=== PATIENT | female | born 1995 | race Caucasian/White ===

== ENCOUNTER 2016-12-19 13:04 | Emergency (ER) | payer OTHER ==
--- NOTE | 2016-12-19 13:53 | ED ---
General Adult HPI - General Chief complaint: Back Pain/Injury Stated complaint: Back Pain Time Seen by Provider: 12/19/16 13:40 Source: patient, RN notes reviewed Mode of arrival: ambulatory Limitations: no limitations - History of Present Illness Initial comments: This is a 21yo female who presents with an exacerbation of chronic back pain 7 days. Patient states she has a history of scoliosis. Patient states pain is located in the middle of her back and is also in the lower back. Patient denies any recent injury or fall or trigger of the pain. Patient denies any radicular pain, numbness/tingling/weakness. Patient states she is unable to follow up with her primary care doctor as they do not take her insurance but states she [facility], but they will not prescribe her anything stronger than Tylenol. Patient denies any recent fever, chills, shortness breath, chest pain, abdominal pain, nausea/vomiting/diarrhea, dysuria, hematuria, headache, or visual changes, or any other complaints. - Related Data Previous Rx's Medication Instructions Recorded Naproxen [Naprosyn] 250 mg PO BID 7 Days 12/19/16 Allergies Allergy/AdvReac Type Severity Reaction Status Date / Time No Known Allergies Allergy Verified 12/19/16 13:23 Review of Systems ROS Statement: Those systems with pertinent positive or pertinent negative responses have been documented in the HPI. ROS Other: All systems not noted in ROS Statement are negative. Past Medical History Past Medical History: Neurologic Disorder Additional Past Medical History / Comment(s): scoliosis, FREQUENT EAR INFECTIONS. MIGRANES History of Any Multi-Drug Resistant Organisms: None Reported Past Surgical History: Adenoidectomy, Tonsillectomy Additional Past Surgical History / Comment(s): BMT Past Anesthesia/Blood Transfusion Reactions: No Reported Reaction Past Psychological History: No Psychological Hx Reported Smoking Status: Never smoker Past Alcohol Use History: None Reported Past Drug Use History: None Reported - Past Family History Father Family Medical History: No Reported History Mother Family Medical History: Cancer General Exam - General Exam Comments Initial Comments: General: The patient is awake and alert, in no distress, and does not appear acutely ill. Neck: The neck is supple, there is no tenderness or JVD. Cardiovascular: There is a regular rate and rhythm. No murmur, rub or gallop is appreciated. Respiratory: Lungs are clear to auscultation, respirations are non-labored, breath sounds are equal. No wheezes, stridor, rales, or rhonchi. Musculoskeletal: There is tenderness to palpation of thoracic spine and lumbar spine and mild tenderness to palpation of the paraspinal muscles of the thoracic and lumbar spines. No cervical midline tenderness. Full range of motion, strength 5/5 and Sensation intact. Radial pulses 2+ bilaterally. Minimal spinal curvature noted. Neurological: A&O x 3. CN II-XII intact, There are no obvious motor or sensory deficits. Coordination appears grossly intact. Speech is normal. Skin: Skin is warm and dry and no rashes or lesions are noted. Psychiatric: Normal mood and affect. Limitations: no limitations Course Vital Signs 12/19/16 12/19/16 13:23 14:51 Temperature 98.8 F 97.8 F Pulse Rate 95 59 L Respiratory 18 16 Rate Blood Pressure 114/78 114/72 O2 Sat by Pulse 98 98 Oximetry Medical Decision Making - Medical Decision Making This is a 21-year-old female presents with chronic back pain from scoliosis. On physical exam there is tenderness over the thoracic and lumbar spinous processes and also mild tenderness to the thoracic and lumbar paraspinal muscles. Minimal spinal curvature noted. Patient is afebrile in the EC. Patient is requesting pain medication. Patient has been trying Tylenol at home with no improvement. A UA and urine hCG was done and reviewed and was negative for UTI and .Urine was sent for culture. Patient is asymptomatic for UTI. X-rays of thoracic and lumbar spines were done and reviewed showing: X-ray thoracic spine: No acute fracture or dislocation is seen in thoracic spine. X- ray lumbar spine: No acute fracture or dislocation is seen in the lumbar spine. Reports read by Dr. Cage. Discussed naproxen 1-2 tabs every 12 hours and warm heating pad as needed for pain. Discussed close follow-up with physician. Patient will be given a referral for a PCP today. Discussed return parameters. Discussed that patient should follow up with PCP in one to 2 days or return to the EC for any worsening symptoms or for any further concerns. Patient was receptive to this plan and patient will be discharged home. I discussed this case with attending physician Dr. Wesley who agrees with plan as stated above. - Lab Data Lab Results 01/25/17 01/25/17 Range/Units 13:55 13:55 Urine Color Yellow Urine Appearance Cloudy H (Clear) Urine pH 6.0 (5.0-8.0) Ur Specific [place] 1.023 (1.001-1.035) Urine Protein 1+ H (Negative) Urine Glucose (UA) Negative (Negative) Urine Ketones Negative (Negative) Urine Blood Moderate H (Negative) Urine Nitrate Negative (Negative) Urine Bilirubin 1+ H (Negative) Urine Urobilinogen 3.0 (<2.0) mg/dL Ur Leukocyte Esterase Small H (Negative) Urine RBC 4 (0-5) /hpf Urine WBC 8 H (0-5) /hpf Ur Squamous Epith Cells 16 H (0-4) /hpf Urine Bacteria Rare H (None) /hpf Hyaline Casts 4 H (0-2) /lpf Urine Mucus Many H (None) /hpf Urine HCG, Qual Not Detected (Not Detectd) Disposition Clinical Impression: Chronic back pain Disposition: HOME SELF-CARE Condition: Good Instructions: Chronic Back Pain (ED) Additional Instructions: Please use naproxen as prescribed. Please use warm heating pads. May also use Tylenol if needed. Please follow-up with the primary care physician as soon as possible or return to the EC for any worsening symptoms or for any further concerns. Prescriptions: Naproxen [Naprosyn] 250 mg PO BID 7 Days Referrals: None,Stated [Primary Care Provider] - 1-2 days Ella Castaneda MD [STAFF PHYSICIAN] - 1-2 days Romain Puente MD [REFERRING] - 1-2 days Time of Disposition: 14:52
[2016-12-19 14:10] LABS: Appearance,Urine Cloudy (Clear); Bacteria,Urine Rare /hpf; Bilirubin,Urine 1+ (Negative); Glucose,Urine (UA) Negative (Negative); Ketones,Urine Negative (Negative); Leukocyte Esterase,Urine Small (Negative); Mucus,Urine Many /hpf; Nitrite,Urine Negative (Negative); Particle Count 13165; Protein,Urine 1+ (Negative); RBC,Urine 4 /hpf (0-5); Specific Gravity,Urine 1.023 (1.001-1.035); Squamous Epithelial Cell,Urine 16 /hpf (0-4); UA Billing (MACRO vs. MICRO) MICRO; WBC,Urine 8 /hpf (0-5)
--- NOTE | 2016-12-19 14:46 | XR ---
EXAMINATION TYPE: XR lumbar spine 2 or 3V DATE OF EXAM: 12/19/2016 2:43 PM CLINICAL HISTORY: pain TECHNIQUE: Three views of the lumbar spine are submitted. COMPARISON: None. FINDINGS: There are 5 lumbar type vertebral bodies identified. The lumbar spine shows satisfactory alignment w ithout evidence of acute fracture or dislocation. Vertebral body heights are within normal limits. Disc spaces are within normal limits. The overlying soft tissue appears unremarkable. IMPRESSION: No acute fracture or dislocation is seen in the lumbar spine. ICD 10 NO FRACTURE, INITIAL EVALUATION
--- NOTE | 2016-12-19 14:46 | XR ---
EXAMINATION TYPE: XR thoracic spine complete DATE OF EXAM: 12/19/2016 2:43 PM CLINICAL HISTORY: pain TECHNIQUE: Frontal, lateral, and swimmer's view of thoracic spine are obtained. COMPARISON: None. FINDINGS: Thoracic spine show satisfactory alignment without evidence of acute fracture or dislocatio n. Vertebral body heights are preserved. Disc spaces are well preserved. Visualized ribs are unrem arkable. IMPRESSION: No acute fracture or dislocation is seen in the thoracic spine. ICD 10 NO FRACTURE, INIT IAL EVALUATION
[2016-12-19 14:52] VITALS: BP 114/72; PULSE 59; RESP 16; TEMP 97.8
== END 2016-12-19 14:52 | disposition home or self-care (01) ==
LOC: EC 13:04
DX: M54.9 Dorsalgia, unspecified (principal); G89.29 Other chronic pain; M41.9 Scoliosis, unspecified
CPT/HCPCS: 72072; 72100; 81001; 81025; 87086; 99283

== ENCOUNTER 2018-02-27 17:08 | Emergency (ER) | payer OTHER ==
--- NOTE | 2018-02-27 18:02 | ED ---
Abdominal Pain HPI - General Chief Complaint: Abdominal Pain Stated Complaint: Abd Pain-4 wks preg Time Seen by Provider: 02/27/18 17:52 Source: patient, RN notes reviewed, old records reviewed Mode of arrival: ambulatory Limitations: no limitations - History of Present Illness Initial Comments: This patient is a 22-year-old female. She reports that she is proximally 4 weeks , and reports over the past few days she's had some lower abdominal cramping. She reports that she was told she has Rh- blood type. She states that she's had no bleeding. She reports that her previous obese of the Dr. Carmona. She has not followed up with anybody for this initial at this time. She states she's had no nausea or vomiting. She rates her cramping a 2 out of 10. She denies any vaginal bleeding, dysuria, hematuria, changes in bowel habits. Denies any vaginal discharge. - Related Data Home Medications Medication Instructions Recorded Confirmed Usk-Lhpn-Lnoux Acid 1 cap PO HS 02/27/18 02/27/18 [-U Capsule (formulary)] Allergies Allergy/AdvReac Type Severity Reaction Status Date / Time No Known Allergies Allergy Verified 02/27/18 18:20 Review of Systems ROS Statement: Those systems with pertinent positive or pertinent negative responses have been documented in the HPI. ROS Other: All systems not noted in ROS Statement are negative. Past Medical History Past Medical History: Neurologic Disorder Additional Past Medical History / Comment(s): scoliosis, FREQUENT EAR INFECTIONS. MIGRANES History of Any Multi-Drug Resistant Organisms: None Reported Past Surgical History: Adenoidectomy, Tonsillectomy Additional Past Surgical History / Comment(s): BMT Past Anesthesia/Blood Transfusion Reactions: No Reported Reaction Past Psychological History: No Psychological Hx Reported Smoking Status: Never smoker Past Alcohol Use History: None Reported Past Drug Use History: None Reported - Past Family History Father Family Medical History: No Reported History Mother Family Medical History: Cancer General Exam - General Exam Comments Initial Comments: 22-year-old female. Alert and oriented. No distress. Limitations: no limitations General appearance: alert, in no apparent distress Head exam: Present: atraumatic, normocephalic, normal inspection Eye exam: Present: normal appearance, PERRL, EOMI. Absent: scleral icterus, conjunctival injection, periorbital swelling ENT exam: Present: normal exam, mucous membranes moist Neck exam: Present: normal inspection. Absent: tenderness, meningismus, lymphadenopathy Respiratory exam: Present: normal lung sounds bilaterally. Absent: respiratory distress, wheezes, rales, rhonchi, stridor Cardiovascular Exam: Present: regular rate, normal rhythm, normal heart sounds. Absent: systolic murmur, diastolic murmur, rubs, gallop, clicks GI/Abdominal exam: Present: soft, normal bowel sounds. Absent: distended, tenderness, guarding, rebound, rigid External exam: Present: normal external exam Speculum exam: Present: normal speculum exam. Absent: erythema, vaginal discharge, cervical discharge, vaginal bleeding By manual exam: Present: normal by manual exam. Absent: cervical motion tenderness, adnexal tenderness Extremities exam: Present: normal inspection, full ROM, normal capillary refill. Absent: tenderness, pedal edema, joint swelling, calf tenderness Back exam: Present: normal inspection Psychiatric exam: Present: normal affect, normal mood Skin exam: Present: warm, dry, intact, normal color. Absent: rash Course Vital Signs 02/27/18 17:20 Temperature 98.5 F Pulse Rate 114 H Respiratory 16 Rate Blood Pressure 108/80 O2 Sat by Pulse 98 Oximetry Medical Decision Making - Medical Decision Making is a 22-year-old female presents emergency department today chief complaint of lower abdominal cramping. She reports that she is currently 4 weeks . She's her last menstrual cycle was January 27. Patient states that she has not followed up with an FRACTIONATING STILL OPERATOR as of yet. She plans to follow up with Dr. Russo. Patient states that she's had no bleeding. On exam she has no bleeding noted in the vaginal canal. Cervix appears closed. Ultrasound was unable to reveal an intrauterine . Patient's hCG is only 55. Discussed do not be able to visualize anything on the ultrasound at that time. Patient is concerned because due to her dates of which she thought she was she should be presently 4 weeks which is a higher hCG. She states that with a negative Rh type she wants to be treated practically with RhoGAM. Discussed that we could repeat her hCG in 2 days and then if it goes down to treat her with this. Patient states that she doesn't want to have it completed. We will give the patient RhoGAM at this time. Discussed following up with primary care provider in repeat hCG. - Lab Data Result diagrams: 02/27/18 18:19 Lab Results 02/27/18 02/27/18 02/27/18 Range/Units 18:19 18:19 18:19 WBC 4.5 (3.8-10.6) k/uL RBC 4.63 (3.80-5.40) m/uL Hgb 14.7 (11.4-16.0) gm/dL Hct 41.4 (34.0-46.0) % MCV 89.5 (80.0-100.0) fL MCH 31.7 (25.0-35.0) pg MCHC 35.4 (31.0-37.0) g/dL RDW 11.8 (11.5-15.5) % Plt Count 176 (150-450) k/uL Neutrophils % 62 % Lymphocytes % 28 % Monocytes % 6 % Eosinophils % 2 % Basophils % 1 % Neutrophils # 2.8 (1.3-7.7) k/uL Lymphocytes # 1.2 (1.0-4.8) k/uL Monocytes # 0.3 (0-1.0) k/uL Eosinophils # 0.1 (0-0.7) k/uL Basophils # 0.0 (0-0.2) k/uL HCG, Quant 55.7 mIU/mL Blood Type O Negative Blood Type Recheck No - Radiology Data Radiology results: report reviewed No jugular gestation is identified. Correlate patient's hCG. Early may not be visualized. Ectopic is not excluded. Left ovarian cyst noted. Disposition Clinical Impression: Early stage of Disposition: HOME SELF-CARE Condition: Good Instructions: Abdominal Pain in (ED) Additional Instructions: Patient has a follow-up with FRACTIONATING STILL OPERATOR and primary care provider. Repeat blood work in 2 days. Return to the emergency department if any alarming signs or symptoms occur. Referrals: Keeley Tapia DO [Primary Care Provider] - 1-2 days Time of Disposition: 19:54
[2018-02-27 18:28] LABS: Basophils % (A) 1 %; Eosinophils # (A) 0.1 k/uL (0-0.7); Eosinophils % (A) 2 %; HCT 41.4 % (34.0-46.0); HGB 14.7 gm/dL (11.4-16.0); Lymphocytes # (A) 1.2 k/uL (1.0-4.8); Lymphocytes % (A) 28 %; MCH 31.7 pg (25.0-35.0); MCHC 35.4 g/dL (31.0-37.0); MCV 89.5 fL (80.0-100.0); Mean Platelet Volume 8.4; Monocytes # (A) 0.3 k/uL (0-1.0); Monocytes % (A) 6 %; Neutrophils # (A) 2.8 k/uL (1.3-7.7); Neutrophils % (A) 62 %; Platelet Count 176 k/uL (150-450); RBC 4.63 m/uL (3.80-5.40); RDW 11.8 % (11.5-15.5); WBC 4.5 k/uL (3.8-10.6)
--- NOTE | 2018-02-27 19:30 | US ---
EXAMINATION TYPE: Transabdominal DATE OF EXAM: 02/25/18 COMPARISON: NONE CLINICAL HISTORY: pain. Cramping EXAM PERFORMED: Transabdominal (TA) EXAM MEASUREMENTS: GESTATIONAL AGE / DATING Physician Established: Not yet established Dates by LMP: (4 weeks/3 days) EDC: 11/03/2018 Dates by First Scan: No previous this is first scan Dates by Current Scan for: No IUP seen at this time MATERNAL ANATOMY Uterus: 8.9 x 6.1 x 5.8cm Right Ovary: 3.2 x 1.7 x 2.6cm Left Ovary: 3.5 x 1.9 x 3.8 cm Post CDS / Adnexa: wnl Presence of free fluid: no Presence of corpus luteal cyst: yes GESTATION / SURVEY IUP: No IUP seen at this time Beta HcG (if available): Not available at this time No IUP seen at this time question to early. IMPRESSION: 1. Intrauterine gestation is not identified. Correlate with the patient's beta hCG. Early m ay not be visualized. Ectopic is not excluded. 2. Left ovarian cyst.
[2018-02-27] MEDS ORDERED: Rhogam IMMUNE GLOBULIN 1,500 UNIT/1 ML IM ONE (19:49)
[2018-02-27 20:21] LABS: Appearance,Urine Clear (Clear); Bacteria,Urine Rare /hpf; Bilirubin,Urine Negative (Negative); Blood,Urine Small (Negative); Color,Urine Yellow; Glucose,Urine (UA) Negative (Negative); Ketones,Urine Negative (Negative); Leukocyte Esterase,Urine Negative (Negative); Mucus,Urine Many /hpf; Nitrite,Urine Negative (Negative); PH, Urine 5.5 (5.0-8.0); Protein,Urine Trace (Negative); RBC,Urine 3 /hpf (0-5); Specific Gravity,Urine 1.027 (1.001-1.035); Squamous Epithelial Cell,Urine 4 /hpf (0-4); WBC,Urine 3 /hpf (0-5)
[2018-02-27 21:33] VITALS: BP 110/68; PULSE 84; RESP 18; TEMP 98
== END 2018-02-27 21:33 | disposition home or self-care (01) ==
LOC: EC 17:08
DX: O99.89 Other specified diseases and conditions complicating pregnancy, childbirth and the puerperium (principal); R10.30 Lower abdominal pain, unspecified; Z3A.01 Less than 8 weeks gestation of pregnancy
CPT/HCPCS: 36415; 86900; 86901; 85025; 86850; 81001; 84702; 87808; 87491; 87591; 87070; 87205; 76801; 99284; 96372; J2791

== ENCOUNTER 2018-03-03 15:09 | Emergency (ER) | payer OTHER ==
[2018-03-03 15:16] VITALS: RESP 18
[2018-03-03 15:42] LABS: Basophils % (A) 1 %; Eosinophils % (A) 1 %; HCT 41.9 % (34.0-46.0); HGB 14.2 gm/dL (11.4-16.0); Lymphocytes # (A) 0.9 k/uL (1.0-4.8); Lymphocytes % (A) 20 %; MCH 30.2 pg (25.0-35.0); MCHC 33.9 g/dL (31.0-37.0); MCV 89.2 fL (80.0-100.0); Mean Platelet Volume 9.5; Monocytes # (A) 0.4 k/uL (0-1.0); Monocytes % (A) 8 %; Neutrophils % (A) 69 %; Platelet Count 139 k/uL (150-450); RBC 4.69 m/uL (3.80-5.40); RDW 11.9 % (11.5-15.5); WBC 4.3 k/uL (3.8-10.6)
[2018-03-03 15:48] LABS: Appearance,Urine Turbid (Clear); Bacteria,Urine Few /hpf; Bilirubin,Urine 1+ (Negative); Blood,Urine Moderate (Negative); Color,Urine Dark Brown; Glucose,Urine (UA) Negative (Negative); Ketones,Urine Trace (Negative); Leukocyte Esterase,Urine Trace (Negative); Mucus,Urine Many /hpf; Nitrite,Urine Negative (Negative); Protein,Urine 2+ (Negative); RBC,Urine >182 /hpf (0-5); Specific Gravity,Urine 1.032 (1.001-1.035); Sperm,Urine Moderate /hpf; Squamous Epithelial Cell,Urine 36 /hpf (0-4); WBC,Urine 10 /hpf (0-5)
[2018-03-03 15:51] LABS: ALT 25 U/L (9-52); AST 18 U/L (14-36); Albumin 4.5 g/dL (3.5-5.0); Alkaline Phosphatase 49 U/L (38-126); Anion Gap 15 mmol/L; Blood Urea Nitrogen 11 mg/dL (7-17); Calcium 9.5 mg/dL (8.4-10.2); Carbon Dioxide 26 mmol/L (22-30); Chloride 103 mmol/L (98-107); Glucose 96 mg/dL (74-99); Potassium 4.1 mmol/L (3.5-5.1); Sodium 144 mmol/L (137-145); Total Bilirubin 0.7 mg/dL (0.2-1.3); Total Protein 7.5 g/dL (6.3-8.2)
--- NOTE | 2018-03-03 16:24 | ED ---
Female Urogenital HPI - General Chief complaint: Vaginal Bleeding Stated complaint: Bleeding, 4 weeks Time Seen by Provider: 03/03/18 16:00 Source: patient, RN notes reviewed, old records reviewed Mode of arrival: ambulatory Limitations: no limitations - History of Present Illness Initial comments: 22-year-old female presents emergency Department a chief complaint of vaginal bleeding. She was seen in ED a few days earlier by myself, for lower cramping. Her hcg at that time was 55. She was also given rhogam at that time, because she thought she was going to be having a miscarriage. She was planning to have her blood work redrawn today, but started to have bleeding. She reports right sided lower cramping. Denies fever or chills, her OB is Dr. Carmona. Last Menstrual Period: 01/27/18 - Related Data Home Medications Medication Instructions Recorded Confirmed Nsq-Hlwu-Hhdev Acid 1 cap PO HS 02/27/18 03/03/18 [-U Capsule (formulary)] Previous Rx's Medication Instructions Recorded Ibuprofen [Motrin] 600 mg PO Q8HR PRN #20 tab 03/03/18 traMADol HCL [Ultram] 50 mg PO Q6HR PRN #10 tab 03/03/18 Allergies Allergy/AdvReac Type Severity Reaction Status Date / Time No Known Allergies Allergy Verified 03/03/18 16:14 Review of Systems ROS Statement: Those systems with pertinent positive or pertinent negative responses have been documented in the HPI. ROS Other: All systems not noted in ROS Statement are negative. Past Medical History Past Medical History: Neurologic Disorder Additional Past Medical History / Comment(s): scoliosis, FREQUENT EAR INFECTIONS. MIGRANES History of Any Multi-Drug Resistant Organisms: None Reported Past Surgical History: Adenoidectomy, Tonsillectomy Additional Past Surgical History / Comment(s): BMT Past Anesthesia/Blood Transfusion Reactions: No Reported Reaction Past Psychological History: No Psychological Hx Reported Smoking Status: Never smoker Past Alcohol Use History: None Reported Past Drug Use History: None Reported - Past Family History Father Family Medical History: No Reported History Mother Family Medical History: Cancer General Exam - General Exam Comments Initial Comments: 22-year-old female. No distress. Limitations: no limitations General appearance: alert Head exam: Present: atraumatic, normocephalic, normal inspection Eye exam: Present: normal appearance, PERRL, EOMI. Absent: scleral icterus, conjunctival injection, periorbital swelling ENT exam: Present: normal exam, mucous membranes moist Neck exam: Present: normal inspection. Absent: tenderness, meningismus, lymphadenopathy Respiratory exam: Present: normal lung sounds bilaterally. Absent: respiratory distress, wheezes, rales, rhonchi, stridor Cardiovascular Exam: Present: regular rate, normal rhythm, normal heart sounds. Absent: systolic murmur, diastolic murmur, rubs, gallop, clicks GI/Abdominal exam: Present: soft, normal bowel sounds. Absent: distended, tenderness, guarding, rebound, rigid Extremities exam: Present: normal inspection, full ROM, normal capillary refill. Absent: tenderness, pedal edema, joint swelling, calf tenderness Back exam: Present: normal inspection Neurological exam: Present: alert, oriented X3, CN II-XII intact Psychiatric exam: Present: normal affect, normal mood Skin exam: Present: warm, dry, intact, normal color. Absent: rash Course Vital Signs 03/03/18 03/03/18 15:12 16:38 Temperature 98.3 F 98.4 F Pulse Rate 111 H 88 Respiratory 18 18 Rate Blood Pressure 115/67 114/71 O2 Sat by Pulse 98 99 Oximetry Medical Decision Making - Medical Decision Making This patient is a 22 year old femael with vaginal bleeding, she is approximately 5 weeks . Patient had US 4 days ago. US showed no viable IUP at that time. She started to have vaginal bleeding today. Her HCG at this time is 39. She was already treated with rhogam. Discussed she needs to repeat hcg in 2 days to ensure it is decreasing. - Lab Data Result diagrams: 03/03/18 15:25 03/03/18 15:25 Lab Results 03/03/18 03/03/18 03/03/18 Range/Units 15:25 15:25 15:25 WBC 4.3 (3.8-10.6) k/uL RBC 4.69 (3.80-5.40) m/uL Hgb 14.2 (11.4-16.0) gm/dL Hct 41.9 (34.0-46.0) % MCV 89.2 (80.0-100.0) fL MCH 30.2 (25.0-35.0) pg MCHC 33.9 (31.0-37.0) g/dL RDW 11.9 (11.5-15.5) % Plt Count 139 L (150-450) k/uL Neutrophils % 69 % Lymphocytes % 20 % Monocytes % 8 % Eosinophils % 1 % Basophils % 1 % Neutrophils # 3.0 (1.3-7.7) k/uL Lymphocytes # 0.9 L (1.0-4.8) k/uL Monocytes # 0.4 (0-1.0) k/uL Eosinophils # 0.0 (0-0.7) k/uL Basophils # 0.0 (0-0.2) k/uL Sodium 144 (137-145) mmol/L Potassium 4.1 (3.5-5.1) mmol/L Chloride 103 (98-107) mmol/L Carbon Dioxide 26 (22-30) mmol/L Anion Gap 15 mmol/L BUN 11 (7-17) mg/dL Creatinine 0.71 (0.52-1.04) mg/dL Est GFR (CKD-EPI)AfAm >90 (>60 ml/min/1.73 sqM) Est GFR (CKD-EPI)NonAf >90 (>60 ml/min/1.73 sqM) Glucose 96 (74-99) mg/dL Calcium 9.5 (8.4-10.2) mg/dL Total Bilirubin 0.7 (0.2-1.3) mg/dL AST 18 (14-36) U/L ALT 25 (9-52) U/L Alkaline Phosphatase 49 (38-126) U/L Total Protein 7.5 (6.3-8.2) g/dL Albumin 4.5 (3.5-5.0) g/dL HCG, Quant 39.0 mIU/mL Urine Color Dark Brown Urine Appearance Turbid H (Clear) Urine pH 6.0 (5.0-8.0) Ur Specific [place] 1.032 (1.001-1.035) Urine Protein 2+ H (Negative) Urine Glucose (UA) Negative (Negative) Urine Ketones Trace H (Negative) Urine Blood Moderate H (Negative) Urine Nitrite Negative (Negative) Urine Bilirubin 1+ H (Negative) Urine Urobilinogen 6.0 (<2.0) mg/dL Ur Leukocyte Esterase Trace H (Negative) Urine RBC >182 H (0-5) /hpf Urine WBC 10 H (0-5) /hpf Ur Squamous Epith Cells 36 H (0-4) /hpf Urine Bacteria Few H (None) /hpf Urine Mucus Many H (None) /hpf Urine Sperm Moderate H (None) /hpf Blood Type Blood Type Recheck 03/03/18 Range/Units 15:25 WBC (3.8-10.6) k/uL RBC (3.80-5.40) m/uL Hgb (11.4-16.0) gm/dL Hct (34.0-46.0) % MCV (80.0-100.0) fL MCH (25.0-35.0) pg MCHC (31.0-37.0) g/dL RDW (11.5-15.5) % Plt Count (150-450) k/uL Neutrophils % % Lymphocytes % % Monocytes % % Eosinophils % % Basophils % % Neutrophils # (1.3-7.7) k/uL Lymphocytes # (1.0-4.8) k/uL Monocytes # (0-1.0) k/uL Eosinophils # (0-0.7) k/uL Basophils # (0-0.2) k/uL Sodium (137-145) mmol/L Potassium (3.5-5.1) mmol/L Chloride (98-107) mmol/L Carbon Dioxide (22-30) mmol/L Anion Gap mmol/L BUN (7-17) mg/dL Creatinine (0.52-1.04) mg/dL Est GFR (CKD-EPI)AfAm (>60 ml/min/1.73 sqM) Est GFR (CKD-EPI)NonAf (>60 ml/min/1.73 sqM) Glucose (74-99) mg/dL Calcium (8.4-10.2) mg/dL Total Bilirubin (0.2-1.3) mg/dL AST (14-36) U/L ALT (9-52) U/L Alkaline Phosphatase (38-126) U/L Total Protein (6.3-8.2) g/dL Albumin (3.5-5.0) g/dL HCG, Quant mIU/mL Urine Color Urine Appearance (Clear) Urine pH (5.0-8.0) Ur Specific [place] (1.001-1.035) Urine Protein (Negative) Urine Glucose (UA) (Negative) Urine Ketones (Negative) Urine Blood (Negative) Urine Nitrite (Negative) Urine Bilirubin (Negative) Urine Urobilinogen (<2.0) mg/dL Ur Leukocyte Esterase (Negative) Urine RBC (0-5) /hpf Urine WBC (0-5) /hpf Ur Squamous Epith Cells (0-4) /hpf Urine Bacteria (None) /hpf Urine Mucus (None) /hpf Urine Sperm (None) /hpf Blood Type O Negative Blood Type Recheck No Disposition Clinical Impression: Miscarriage Disposition: HOME SELF-CARE Condition: Stable Instructions: Miscarriage (ED) Additional Instructions: Patient advised to follow-up with primary care provider and PASSENGER RATE CLERK. Return to emergency department if any alarming signs or symptoms occur. Prescriptions: Ibuprofen [Motrin] 600 mg PO Q8HR PRN #20 tab PRN Reason: Pain traMADol HCL [Ultram] 50 mg PO Q6HR PRN #10 tab PRN Reason: Pain Referrals: Keeley Tapia DO [Primary Care Provider] - 1-2 days Time of Disposition: 16:34
[2018-03-03 16:40] VITALS: BP 114/71; PULSE 88; TEMP 98.4
== END 2018-03-03 16:58 | disposition home or self-care (01) ==
LOC: EC 15:09
DX: O03.9 Complete or unspecified spontaneous abortion without complication (principal)
CPT/HCPCS: 36415; 80053; 81001; 84702; 85025; 86900; 86901; 99284

== ENCOUNTER → 2018-05-20 | Outpatient (CLI) | payer OTHER ==
--- NOTE | 2018-05-20 15:49 | US ---
EXAMINATION TYPE: Transabdominal DATE OF EXAM: 02/25/18 COMPARISON: NONE CLINICAL HISTORY: Z36 CONFIRM DATES. no cramping or bleeding, confirm dates EXAM PERFORMED: OBTA EXAM MEASUREMENTS: GESTATIONAL AGE / DATING Physician Established: (10 weeks/6 days) EDC: 12/08/2018 Dates by LMP: LMP unknown Dates by First Scan: No previous this is first scan Dates by Current Scan for: (10 weeks/6 days) EDC: 12/10/2018 MATERNAL ANATOMY Uterus: 10.6 x 7.7 x 9.1cm Right Ovary: 2.5 x 1.5 x 1.6cm Left Ovary: 1.9 x 1.7 x 1.9cm Post CDS / Adnexa: wnl Presence of free fluid: no Presence of corpus luteal cyst: no Presence of subchorionic bleed: no GESTATION / SURVEY CRL: 3.8cm (10 weeks/6 days) MSD: wnl Yolk Sac (normal less than 6mm): 0.3cm Heart Rate: 174 bpm Rhythm: Normal IUP: Viable IUP Date of LMP: unknown Beta HcG (if available): not available IMPRESSION: Single viable intrauterine .
[2018-05-20 17:04] LABS: HCT 42.1 % (34.0-46.0); HGB 14.8 gm/dL (11.4-16.0); MCH 31.3 pg (25.0-35.0); MCV 89.3 fL (80.0-100.0); Mean Platelet Volume 8.5; Platelet Count 174 k/uL (150-450); RBC 4.72 m/uL (3.80-5.40); RDW 12.9 % (11.5-15.5); WBC 6.9 k/uL (3.8-10.6)
[2018-05-20 17:26] LABS: Glucose 86 mg/dL (74-99)
[2018-05-21 05:58] LABS: Toxoplasma Antibody (IgG) <3.0 IU/mL (<7.2); Toxoplasma Antibody (IgM) <3.0 AU/mL (<8.0)
== END | disposition home or self-care (01) ==
LOC: RADUSWWP 14:20
PROVIDERS: ATTEND Obstetrics & Gynecology
DX: Z36.89 Encounter for other specified antenatal screening (principal); Z34.81 Encounter for supervision of other normal pregnancy, first trimester; Z3A.10 10 weeks gestation of pregnancy
CPT/HCPCS: 36415; 76801; 82565; 82947; 85027; 86762; 86777; 86778; 86780; 86850; 86870; 86880; 86900; 86901; 87340

== ENCOUNTER 2018-07-07 01:12 | Emergency (ER) | payer OTHER ==
[2018-07-07 01:20] VITALS: RESP 18
[2018-07-07] MEDS ORDERED: SODIUM CHLORIDE 0.9% 1,000 ML IV STA (01:38)
[2018-07-07] MEDS ORDERED: ACETAMINOPHEN TAB 325 MG TAB PO STA (01:38)
--- NOTE | 2018-07-07 01:48 | ED ---
Abdominal Pain HPI - General Chief Complaint: Abdominal Pain Stated Complaint: Cramping-18wks Time Seen by Provider: 07/07/18 01:26 Source: patient Mode of arrival: ambulatory Limitations: no limitations - History of Present Illness Initial Comments: 23-year-old female patient who is A1, currently 18 weeks presents to the emergency department today for evaluation of left sided pelvic pain and generalized abdominal cramping. Patient states that the pain feels like contractions. States they are irregular. Patient states that this started a couple of hours prior to arrival. Patient states that she is having some low back pain as well but this is not unusual for her as she does have a history of scoliosis. Patient denies any dysuria, hematuria, or urinary urgency. She is not having any vaginal bleeding, but states she has had an increase in clear vaginal discharge. Patient states she's been having normal bowel movements. Patient states that that this has been expands a lot of nausea and vomiting. She sees Dr. Carmona. Last visit with him was approximately 5 weeks ago. Patient denies any recent rash, fever, chills, shortness breath, chest pain, numbness, tingling, dizziness, weakness, headache , visual changes, or any other complaints. - Related Data Home Medications Medication Instructions Recorded Confirmed Qds-Imrj-Klexv Acid 1 cap PO HS 02/27/18 03/03/18 [-U Capsule (formulary)] Previous Rx's Medication Instructions Recorded Ibuprofen [Motrin] 600 mg PO Q8HR PRN #20 tab 03/03/18 traMADol HCL [Ultram] 50 mg PO Q6HR PRN #10 tab 03/03/18 Allergies Allergy/AdvReac Type Severity Reaction Status Date / Time No Known Allergies Allergy Verified 07/07/18 01:20 Review of Systems ROS Statement: Those systems with pertinent positive or pertinent negative responses have been documented in the HPI. ROS Other: All systems not noted in ROS Statement are negative. Past Medical History Past Medical History: Neurologic Disorder Additional Past Medical History / Comment(s): scoliosis, FREQUENT EAR INFECTIONS. MIGRANES History of Any Multi-Drug Resistant Organisms: None Reported Past Surgical History: Adenoidectomy, Tonsillectomy Additional Past Surgical History / Comment(s): BMT Past Anesthesia/Blood Transfusion Reactions: No Reported Reaction Past Psychological History: No Psychological Hx Reported Smoking Status: Never smoker Past Alcohol Use History: None Reported Past Drug Use History: None Reported - Past Family History Father Family Medical History: No Reported History Mother Family Medical History: Cancer General Exam Limitations: no limitations General appearance: alert, in no apparent distress, other Eye exam: Present: normal appearance, PERRL, EOMI. Absent: scleral icterus, conjunctival injection, periorbital swelling ENT exam: Present: normal exam, normal oropharynx, mucous membranes moist Respiratory exam: Present: normal lung sounds bilaterally. Absent: respiratory distress, wheezes, rales, rhonchi, stridor Cardiovascular Exam: Present: regular rate, normal rhythm, normal heart sounds. Absent: systolic murmur, diastolic murmur, rubs, gallop, clicks GI/Abdominal exam: Present: soft, tenderness (Left pelvic tenderness), normal bowel sounds. Absent: distended, guarding, rebound, rigid Neurological exam: Present: alert, oriented X3, CN II-XII intact Psychiatric exam: Present: normal affect, normal mood Skin exam: Present: warm, dry, intact, normal color. Absent: rash Course Vital Signs 07/07/18 01:17 Temperature 98.2 F Pulse Rate 111 H Respiratory 18 Rate Blood Pressure 116/66 O2 Sat by Pulse 100 Oximetry Medical Decision Making - Medical Decision Making 23-year-old female patient who is 18 weeks presents to the emergency department today for evaluation of left pelvic pain increase clear vaginal discharge. Physical examination did reveal some mild tenderness over the left pelvic region. Labs reviewed and were unremarkable. Urinalysis was negative for any evidence of infection. ultrasound was obtained and showed a viable intrauterine measuring 17 weeks 3 days. Amniotic fluid appeared normal. There is no complicating process seen. I did offer to perform pelvic examination and the patient declined stating that she would rather have this done by her TARE WORKER. Patient is instructed to follow-up with Dr. Carmona as soon as possible. Return parameters were discussed in detail. She verbalizes understanding and agrees with this plan. - Lab Data Result diagrams: 07/07/18 02:36 07/07/18 02:36 Lab Results 07/07/18 07/07/18 07/07/18 Range/Units 02:36 02:36 02:36 WBC 7.2 (3.8-10.6) k/uL RBC 3.92 (3.80-5.40) m/uL Hgb 12.4 (11.4-16.0) gm/dL Hct 36.0 (34.0-46.0) % MCV 91.6 (80.0-100.0) fL MCH 31.6 (25.0-35.0) pg MCHC 34.5 (31.0-37.0) g/dL RDW 13.6 (11.5-15.5) % Plt Count 140 L (150-450) k/uL Neutrophils % 78 % Lymphocytes % 15 % Monocytes % 5 % Eosinophils % 1 % Basophils % 0 % Neutrophils # 5.6 (1.3-7.7) k/uL Lymphocytes # 1.1 (1.0-4.8) k/uL Monocytes # 0.3 (0-1.0) k/uL Eosinophils # 0.0 (0-0.7) k/uL Basophils # 0.0 (0-0.2) k/uL Sodium 137 (137-145) mmol/L Potassium 3.8 (3.5-5.1) mmol/L Chloride 107 (98-107) mmol/L Carbon Dioxide 24 (22-30) mmol/L Anion Gap 6 mmol/L BUN 8 (7-17) mg/dL Creatinine 0.50 L (0.52-1.04) mg/dL Est GFR (CKD-EPI)AfAm >90 (>60 ml/min/1.73 sqM) Est GFR (CKD-EPI)NonAf >90 (>60 ml/min/1.73 sqM) Glucose 90 (74-99) mg/dL Calcium 9.0 (8.4-10.2) mg/dL Total Bilirubin 0.6 (0.2-1.3) mg/dL AST 14 (14-36) U/L ALT 21 (9-52) U/L Alkaline Phosphatase 38 (38-126) U/L Total Protein 6.4 (6.3-8.2) g/dL Albumin 3.7 (3.5-5.0) g/dL Amylase 64 (30-110) U/L Lipase 39 (23-300) U/L Urine Color Yellow Urine Appearance Clear (Clear) Urine pH 6.5 (5.0-8.0) Ur Specific [place] 1.007 (1.001-1.035) Urine Protein Negative (Negative) Urine Glucose (UA) Negative (Negative) Urine Ketones Negative (Negative) Urine Blood Trace H (Negative) Urine Nitrite Negative (Negative) Urine Bilirubin Negative (Negative) Urine Urobilinogen <2.0 (<2.0) mg/dL Ur Leukocyte Esterase Negative (Negative) Urine RBC 1 (0-5) /hpf Urine WBC 2 (0-5) /hpf Ur Squamous Epith Cells 5 H (0-4) /hpf - Radiology Data Radiology results: report reviewed, image reviewed ultrasound was obtained. Report was reviewed in its entirety. Impression by Dr. Paulino shows satisfactory development compared to . No Acute process seen. The single IUP measuring 17 weeks 4 days with a heart rate of 153 and estimated delivery date of 12/11/2018. JACQUELYN is within normal range. Disposition Clinical Impression: Abdominal pain during Disposition: HOME SELF-CARE Condition: Good Instructions: Abdominal Pain in (ED) Additional Instructions: Increase fluids. Follow-up with your TARE WORKER as soon as possible. Return here immediately for any new, worsening, or concerning symptoms. Is patient prescribed a controlled substance at d/c from ED?: No Referrals: Keeley Tapia DO [Primary Care Provider] - 1-2 days Lauro Carmona MD [STAFF PHYSICIAN] - 1-2 days Time of Disposition: 03:18
--- NOTE | 2018-07-07 02:23 | US ---
EXAMINATION TYPE: US OB >= 14 wk fetus DATE OF EXAM: 07/07/2018 COMPARISON: US 2018 CLINICAL HISTORY: PainPelvic cramping x couple days TECHNIQUE: Transabdominal (TA) GESTATIONAL AGE / DATING Physician Established: (18 weeks/0 days) EDC: 12/08/2018 Dates by LMP: Unknown Dates by First Scan: (17 weeks/5 days) EDC: 12/10/2018 Dates by Current Scan: (17 weeks/4 days) EDC: 12/11/2018 SURVEY IUP: Single PLACENTA: Anterior PREVIA: No Previa JACQUELYN: 10.9 cm Normal CERVICAL LENGTH (transabdominal: norm > 3.0cm): 3.3 cm BIOMETRY PRESENTATION: Breech LIE: Longitudinal BPD: 3.8 cm 17 weeks / 3 days HC: 13.9 cm 17 weeks / 2 days AC: 12.6 cm no complicating process seen. 18 weeks / 1 days FL: 2.5 cm 17 weeks / 4 days ESTIMATED WEIGHT IN GRAMS: 212 grams ESTIMATED WEIGHT IN LBS/OZ: 0 lbs. 7 oz. WEIGHT PERCENTAGE BASED ON ESTABLISHED DATES: 35% HC/AC: 1.10 Normal FL/AC: 19.98 HEART RATE: 153 bpm RHYTHM: Normal Viable single IUP measuring 17 weeks 4 days with a heart rate of 153bpm and an estimated delivery dena e of 12/11/2018. IMPRESSION: There is satisfactory development compared to 05/20/2018. No complicating process seen.
[2018-07-07 02:47] LABS: Basophils % (A) 0 %; Eosinophils % (A) 1 %; HGB 12.4 gm/dL (11.4-16.0); Lymphocytes # (A) 1.1 k/uL (1.0-4.8); Lymphocytes % (A) 15 %; MCH 31.6 pg (25.0-35.0); MCHC 34.5 g/dL (31.0-37.0); MCV 91.6 fL (80.0-100.0); Mean Platelet Volume 8.8; Monocytes # (A) 0.3 k/uL (0-1.0); Monocytes % (A) 5 %; Neutrophils # (A) 5.6 k/uL (1.3-7.7); Neutrophils % (A) 78 %; Platelet Count 140 k/uL (150-450); RBC 3.92 m/uL (3.80-5.40); RDW 13.6 % (11.5-15.5); WBC 7.2 k/uL (3.8-10.6)
[2018-07-07 02:49] LABS: Appearance,Urine Clear (Clear); Bilirubin,Urine Negative (Negative); Blood,Urine Trace (Negative); Color,Urine Yellow; Glucose,Urine (UA) Negative (Negative); Ketones,Urine Negative (Negative); Leukocyte Esterase,Urine Negative (Negative); Nitrite,Urine Negative (Negative); PH, Urine 6.5 (5.0-8.0); Protein,Urine Negative (Negative); RBC,Urine 1 /hpf (0-5); Specific Gravity,Urine 1.007 (1.001-1.035); Squamous Epithelial Cell,Urine 5 /hpf (0-4); Urobilinogen,Urine <2.0 mg/dL (<2.0); WBC,Urine 2 /hpf (0-5)
[2018-07-07 02:57] LABS: ALT 21 U/L (9-52); AST 14 U/L (14-36); Albumin 3.7 g/dL (3.5-5.0); Alkaline Phosphatase 38 U/L (38-126); Amylase 64 U/L (30-110); Anion Gap 6 mmol/L; Blood Urea Nitrogen 8 mg/dL (7-17); Carbon Dioxide 24 mmol/L (22-30); Chloride 107 mmol/L (98-107); Glucose 90 mg/dL (74-99); Lipase 39 U/L (23-300); Potassium 3.8 mmol/L (3.5-5.1); Sodium 137 mmol/L (137-145); Total Bilirubin 0.6 mg/dL (0.2-1.3); Total Protein 6.4 g/dL (6.3-8.2)
[2018-07-07 03:57] VITALS: BP 110/63; PULSE 88; TEMP 97.6
== END 2018-07-07 03:58 | disposition home or self-care (01) ==
LOC: EC 01:12
DX: O99.89 Other specified diseases and conditions complicating pregnancy, childbirth and the puerperium (principal); R10.84 Generalized abdominal pain; R10.2 Pelvic and perineal pain; N89.8 Other specified noninflammatory disorders of vagina; M54.5 Low back pain; M41.9 Scoliosis, unspecified; O21.9 Vomiting of pregnancy, unspecified; Z53.29 Procedure and treatment not carried out because of patient's decision for other reasons; Z3A.17 17 weeks gestation of pregnancy
CPT/HCPCS: 36415; 76805; 80053; 81001; 82150; 83690; 85025; 87086; 96360; 99284

== ENCOUNTER 2018-09-04 10:08 | Outpatient (CLI) | payer OTHER ==
[2018-09-04 10:51] VITALS: BP 114/67; PULSE 97; RESP 18; TEMP 98.2
--- NOTE | 2018-09-25 12:58 | P.MSEPDOC ---
Presenting Problems - Arrival Data Date of Arrival on Unit: 09/04/18 Time of Arrival on Unit: 10:08 Mode of Transport: Ambulatory Vital Signs - Temperature Temperature: 98.2 F Temperature Source: Oral - Pulse Right Pulse Oximetery Pulse Rate: 97 Pulse Assessment Method: Pulse Oximetry - Respirations Respiratory Rate: 18 Oxygen Delivery Method: Room Air O2 Sat by Pulse Oximetry: 100 - Blood Pressure Right Arm Blood Pressure: 114/67 Blood Pressure Mean: 82 Blood Pressure Source: Automatic Cuff Medical Screen Scoring (Post) - Cervical Exam Dilation: 0 cm = 0 Membranes: Intact - Uterine Contractions Frequency: > 5 minutes apart = 1 Duration: N/A Intensity: N/A - Maternal Vital Signs Maternal Temperature: N/A Maternal Blood Pressure: N/A Signs of Preeclampsia: N/A Maternal Respirations: N/A - Pain Assessment Pain Location and Character: Abdomen Pain Scale Used: Numeric (1 - 10) Pain Intensity: 4 Pain Management Goal: 2 Pain Description: Tightness Pain Radiation Location: NONE Pain Frequency: Occasional Pain Duration: 4 Pain Duration Units: Hours Pain Behavior: Vocalization Effects of Pain: NONE Pain Aggravating Factors: Position, Walking Pharmacological Interventions: Discuss Pain Med Options Non-Pharmacological Interventions: Position/Reposition, Reduce Environmental Stimuli - Maternal Trauma Maternal Trauma: N/A - Assessment Heart Rate: 140 Heart Rate - NICHD Category: Category I (Normal) = 0 Position: N/A Station: N/A - Total Score Total Score (Post): 1 - Post Treatment Level of Risk Post Treatment Level of Risk: Low (0-5) Physician Notification (Post) - Physician Notified Physician Notified Date: 09/04/18 Physician Notified Time: 10:30 Physician/Practitioner Notified:: DR LEIGH Spoke With: DR LEIGH - TELEPHONE, AT OFFICE New Order Received: Yes (cervical exam, if closed, pt may be discharged home) - Notification Comment Comment: pt here for contractions and lower left abdominal pain with contractions, FHR reassuring, no contractions per TOCO or palpation, cervix closed, thick, high, firm. pt discharged home with instructions. Disposition - Disposition OB Disposition: Discharge to home Discharge Date: 09/04/18 Discharge Time: 10:42 I agree with the RN Medical Screening Exam: Yes Risk & Benefit of care provided described in d/c instruction: Yes Diagnosis: FALSE LABOR BEFORE 37 COMPLETED WEEKS OF GEST, THIRD TRI
== END 2018-09-04 10:42 | disposition home or self-care (01) ==
LOC: FBPOP 10:08
PROVIDERS: ATTEND Obstetrics & Gynecology
DX: O47.03 False labor before 37 completed weeks of gestation, third trimester (principal); Z3A.00 Weeks of gestation of pregnancy not specified
CPT/HCPCS: 99213

== ENCOUNTER 2018-11-08 14:41 | Outpatient (CLI) | payer OTHER ==
[2018-11-08 15:04] LABS: Appearance,Urine Clear (Clear); Bilirubin,Urine Negative (Negative); Blood,Urine Negative (Negative); Color,Urine Yellow; Glucose,Urine (UA) Negative (Negative); Ketones,Urine Negative (Negative); Leukocyte Esterase,Urine Negative (Negative); Nitrite,Urine Negative (Negative); PH, Urine 6.5 (5.0-8.0); Protein,Urine Negative (Negative); Specific Gravity,Urine 1.012 (1.001-1.035)
[2018-11-08 15:41] VITALS: BP 116/71; PULSE 97; RESP 18; TEMP 97.6
--- NOTE | 2018-11-09 09:15 | P.MSEPDOC ---
Presenting Problems - Arrival Data Date of Arrival on Unit: 11/08/18 Time of Arrival on Unit: 14:41 Mode of Transport: Ambulatory - Complaint OB-Reason for Admission/Chief Complaint: Possible Onset of Labor Comment: cramping since last night. pt states constant. Medical History - Information : 5 Para: 3 Term: 3 : 0 Abortions: Spontaneous or Elective: 1 Number of Living Children: 3 - Gestational Age Gestational Age by CHANDAN (wks/days): 35 Weeks and 5 Days Review of Systems - Review of Systems Constitutional: No problems Breast: No problems ENT: No problems Cardiovascular: No problems Respiratory: No problems Gastrointestinal: No problems Genitourinary: No problems Musculoskeletal: No problems Neurological: No problems Skin: No problems Vital Signs - Temperature Temperature: 97.6 F Temperature Source: Temporal Artery Scan - Pulse Right Pulse Oximetery Pulse Rate: 97 Pulse Assessment Method: Pulse Oximetry - Respirations Respiratory Rate: 18 Oxygen Delivery Method: Room Air O2 Sat by Pulse Oximetry: 99 - Blood Pressure Right Arm Blood Pressure: 116/71 Blood Pressure Mean: 86 Blood Pressure Source: Automatic Cuff Medical Screen Scoring (Pre) - Cervical Exam Dilation: 1-3 cm = 1 Membranes: Intact - Uterine Contractions Frequency: > 5 minutes apart = 1 Duration: > 40 seconds = 2 Intensity: N/A - Maternal Vital Signs Maternal Temperature: N/A Maternal Blood Pressure: N/A Signs of Preeclampsia: N/A Maternal Respirations: N/A - Pain Assessment Pain Location and Character: Abdomen Pain Scale Used: Numeric (1 - 10) Pain Intensity: 3 Pain Management Goal: 2 Pain Description: *Acute, Cramping Pain Radiation Location: none Pain Frequency: Constant Pain Duration: 1 Pain Duration Units: Days Pain Behavior: Vocalization Effects of Pain: none Pain Aggravating Factors: Changing Position Pharmacological Interventions: PRN Medication - Maternal Trauma Maternal Trauma: N/A - Assessment Baseline FHR: 135 Heart Rate - NICHD Category: Category I (Normal) = 0 NST: Reactive Position: N/A Station: N/A - Total Score Total Score (Pre): 4 - Level of Risk Level of Risk: Low (0-5) Physician Notification (Pre) - Physician Notified Physician Notified Date: 11/08/18 Physician Notified Time: 15:27 Physician/Practitioner Notifed:: Kristine Spoke With: Kristine - telephone New Order Received: Yes (discharge home with instructions) - Notification Comment Comment: pt here for cramping since last night, 3 contractions in 45 min via toco, category 1 FHR, U/A wnl, cervix 2cm, 50, high (same as in office 2 days ago). Order for discharge with instructions Disposition - Disposition OB Disposition: Discharge to home Discharge Date: 11/08/18 Discharge Time: 15:35 I agree with the RN Medical Screening Exam: Yes Risk & Benefit of care provided described in d/c instruction: Yes Diagnosis: FALSE LABOR BEFORE 37 COMPLETED WEEKS OF GEST, THIRD TRI
== END 2018-11-08 15:35 | disposition home or self-care (01) ==
LOC: FBPOP 14:41
PROVIDERS: ATTEND Obstetrics & Gynecology
DX: O47.03 False labor before 37 completed weeks of gestation, third trimester (principal); Z3A.35 35 weeks gestation of pregnancy
CPT/HCPCS: 59025; 81003; G0463; 99213

== ENCOUNTER 2018-12-04 05:50 | Inpatient (IN) | payer OTHER ==
--- NOTE | 2018-12-03 07:58 | P.HPOB ---
History of Present Illness H&P Date: 12/03/18 Chief Complaint: Patient is requesting induction of labor. This patient is a pleasant 23-year-old 5 para 3 female estimated date of confinement 12/08/2018 estimated gestational age 39-2/7 weeks who presents to labor and delivery for requested induction of labor. Patient's care has been uncomplicated. Review of Systems Genitourinary: Reports Menstruation: Reports amenorrhea Past Medical History Past Medical History: Neurologic Disorder Additional Past Medical History / Comment(s): scoliosis, FREQUENT EAR INFECTIONS. MIGRANES History of Any Multi-Drug Resistant Organisms: None Reported Past Surgical History: Adenoidectomy, Tonsillectomy Additional Past Surgical History / Comment(s): BMT Past Anesthesia/Blood Transfusion Reactions: No Reported Reaction Smoking Status: Never smoker - Past Family History Father Family Medical History: No Reported History Mother Family Medical History: Cancer Medications and Allergies Home Medications Medication Instructions Recorded Confirmed Type Paw-Xndg-Eddzq Acid 1 cap PO HS 02/27/18 11/08/18 History [-U Capsule (formulary)] Allergies Allergy/AdvReac Type Severity Reaction Status Date / Time No Known Allergies Allergy Verified 11/08/18 14:57 Exam - OBG Physical Exam Abdomen: bowel sounds normal, no diffuse tenderness, no bruit present, no guarding noted, no hepatomegaly, no splenomegaly, no mass Vulva: both: normal Vagina: normal moisture, no discharge Cervix: Cervix in the office is 3 cm dilated. Uterus: enlarged (Fundal height consistent with term ) Results blood work shows she is O-, rubella immune, RPR nonreactive, hepatitis B is negative, Glucola was normal, RhoGAM was given on 28 weeks. Patient's group B strep was negative but she has a history of a positive strep with her first Assessment and Plan Assessment: This is a pleasant 23-year-old 5 para 3 female estimated gestational age 39-1/2 weeks who presents to labor and delivery for requested induction of labor. Patient has a history of positive group B strep with her first and therefore will be given antibiotics prophylactically. Plan is induction of labor and anticipate vaginal delivery. (1) 39 weeks gestation of Status: Acute Code(s): Z3A.39 - 39 WEEKS GESTATION OF SNOMED Code( s): 58307787 (2) Elective induction of labor planned Status: Acute Code(s): MHG0557 - SNOMED Code(s): 924851063 (3) Group B streptococcal carriage complicating Status: Acute Code(s): O99.820 - STREPTOCOCCUS B CARRIER STATE COMPLICATING SNOMED Code(s): 811504742564285
[2018-12-04] MEDS ORDERED: OXYTOCIN 20 UNITS/1000 ML NS 1,000 ML IV SCH ×2 (06:01→09:26)
[2018-12-04] MEDS ORDERED: TERBUTALINE 1 MG/ML VIAL SQ PRN (06:01)
[2018-12-04] MEDS ORDERED: CARBOPROST TROMETHAMINE 250 MCG/ML 1 ML AMP IM PRN (06:01)
[2018-12-04] MEDS ORDERED: METHYLERGONOVINE 0.2 MG/ML 1 ML AMP IM PRN (06:01)
[2018-12-04] MEDS ORDERED: OXYTOCIN 10 UNIT/ML 1 ML VIAL IM PRN (06:01)
[2018-12-04] MEDS ORDERED: LACTATED RINGERS 1,000 ML IV SCH (06:01)
[2018-12-04] MEDS ORDERED: LIDOCAINE 1% INJ 10MG/ML (20 ML MDV) SQ PRN (06:01)
[2018-12-04] MEDS ORDERED: AMPICILLIN 2,000 MG in SODIUM CHLORIDE 0.9% 100 ML IVPB STA (06:01)
[2018-12-04 06:09] VITALS: RESP 16; BMI 22.1
[2018-12-04 06:24] LABS: Basophils # (A) 0.1 k/uL (0-0.2); Basophils % (A) 1 %; Eosinophils # (A) 0.1 k/uL (0-0.7); Eosinophils % (A) 1 %; HCT 36.1 % (34.0-46.0); HGB 11.5 gm/dL (11.4-16.0); Hypochromasia Slight; Lymphocytes # (A) 1.4 k/uL (1.0-4.8); Lymphocytes % (A) 16 %; MCH 26.7 pg (25.0-35.0); MCV 83.5 fL (80.0-100.0); Mean Platelet Volume 10.5; Monocytes # (A) 0.5 k/uL (0-1.0); Monocytes % (A) 6 %; Neutrophils # (A) 6.8 k/uL (1.3-7.7); Neutrophils % (A) 75 %; Platelet Count 146 k/uL (150-450); Poikilocytosis Slight; RBC 4.33 m/uL (3.80-5.40); RDW 15.8 % (11.5-15.5)
[2018-12-04] MEDS ORDERED: BUTORPHANOL 1 MG/ML 1 ML VIAL IV PRN (08:33)
[2018-12-04] MEDS ORDERED: BISACODYL 10 MG SUPP RECTAL PRN (09:26)
[2018-12-04] MEDS ORDERED: diphenhydrAMINE 25 MG CAP PO PRN (09:26)
[2018-12-04] MEDS ORDERED: ZOLPIDEM 5 MG TAB PO PRN (09:26)
[2018-12-04] MEDS ORDERED: WITCH HAZEL 1 EACH MED..PAD TOPICAL PRN (09:26)
[2018-12-04] MEDS ORDERED: Rhogam IMMUNE GLOBULIN 1,500 UNIT/1 ML IM ONE (09:26)
[2018-12-04] MEDS ORDERED: diphenhydrAMINE 50 MG/ML 1 ML VIAL IVP PRN (09:26)
[2018-12-04] MEDS ORDERED: LANOLIN CREAM 5 GM TUBE TOPICAL PRN (09:26)
[2018-12-04] MEDS ORDERED: IBUPROFEN 600 MG TAB PO PRN (09:26)
[2018-12-04] MEDS ORDERED: BENZOCAINE/MENTHOL SPRAY 1 GM/SPRAY AEROSOL TOPICAL PRN (09:26)
[2018-12-04] MEDS ORDERED: SIMETHICONE 80 MG CHEWABLE PO PRN (09:26)
[2018-12-04] MEDS ORDERED: HYDROCORTISONE 2.5% RECTAL CREAM 30 GM TUBE RECTAL PRN (09:26)
[2018-12-04] MEDS: SENNOSIDES-DOCUSATE SODIUM 1 EACH TAB PO SCH ×2 (09:42→22:14)
[2018-12-04] MEDS ORDERED: AMPICILLIN 1,000 MG in SODIUM CHLORIDE 0.9% 50 ML IVPB SCH (10:00)
[2018-12-04] MEDS: ACETAMINOPHEN TAB 325 MG TAB PO PRN (11:16)
--- NOTE | 2018-12-04 17:53 | P.PROBDLV ---
Vaginal Delivery Note - . Vaginal Delivery Note: Normal spontaneous vaginal delivery viable male infant Apgars 9 and 9 delivery time was 0905 hrs. Please see dictated H&P for intimate details of this patient's admission. In brief summary this is a pleasant 23-year-old 5 para 3 female 39-3/7 weeks who is admitted to labor and delivery for requested induction of labor. Patient is admitted and has artificial rupture membranes for clear fluid. Patient has Pitocin augmentation of labor and received one dose of Stadol for pain control. Patient's labor progresses quickly. She was given ampicillin for history of positive strep with her first . Patient gets to complete pushes the head to the perineum. Posterior perineum is supported we have controlled delivery of the 's head over the intact perineum. Mouth and nares are bulb suctioned. There is no evidence of nuchal cord. With gentle downward traction we then have deliver the anterior and posterior shoulder and rest this 's body. This is a vigorous viable male infant Apgars are 9 and 9 delivery time was 0905 hrs. After delivery of the the umbilical cord is allowed to quit pulsating is doubly clamped and cut. The is late on the mother's abdomen. 7 spontaneously delivered intact. Estimated blood loss is 100 mL. There are no lacerations and no repairs indicated. and mother stable delivery room. There are no complications. All counts are correct 3.
[2018-12-05] MEDS: ACETAMINOPHEN TAB 325 MG TAB PO PRN ×2 (02:11→08:03)
--- NOTE | 2018-12-05 06:20 | P.PNOBGVD ---
Subjective - Subjective Patient reports: Reports appetite normal, Reports voiding normally, Reports pain well controlled, Reports ambulating normally : doing well Objective - Latest Vital Signs Latest vital signs: Vital Signs Temp Pulse Resp BP 12/04/18 23:51 98.4 F 90 16 117/70 12/04/18 20:00 98.2 F 112 H 16 124/78 12/04/18 16:00 98.2 F 108 H 16 117/75 12/04/18 11:32 98.3 F 81 16 103/60 12/04/18 11:27 74 16 116/64 12/04/18 10:57 74 16 120/68 12/04/18 10:23 98.2 F 79 16 119/77 12/04/18 10:09 83 16 119/61 12/04/18 09:57 75 16 124/79 12/04/18 09:42 83 16 150/80 12/04/18 09:27 90 16 118/57 Intake and Output 12/04/18 12/04/18 12/05/18 14:59 22:59 06:59 Intake Total 700 100 Output Total 200 Balance 500 100 Intake: Intake, IV Titration 700 Amount Oxytocin 20 Units/1000 ml 700 Ns 1,000 ml @ Per Protocol IV .Q0M [facility] Rx#: [id number] Oral 100 Output: Estimated Blood Loss 200 Other: # Voids 1 1 - Exam Lungs: bilateral: normal Chest: Normal S1, Normal S2 Extremities: Present: normal Abdomen: Present: normal appearance, soft Uterus: Present: normal, firm - Labs Labs: Abnormal Lab Results - Last 24 Hours (Table) 12/04/18 Range/Units 06:10 RDW 15.8 H (11.5-15.5) % Plt Count 146 L (150-450) k/uL Assessment and Plan Assessment: day #1. Patient is resting without complaints and wishes to go home. Vital signs are stable and she is afebrile. Uterus is firm nontender and she is having normal lochia. My impression this is a normal course. Plan is to continue routine care discharge home later this morning (1) 39 weeks gestation of Current Visit: No Status: Acute Code(s): Z3A.39 - 39 WEEKS GESTATION OF SNOMED Code(s): 15172794 (2) Elective induction of labor planned Current Visit: No Status: Acute Code(s): XBO0482 - SNOMED Code(s): 150606930 (3) Group B streptococcal carriage complicating Current Visit: No Status: Acute Code(s): O99.820 - STREPTOCOCCUS B CARRIER STATE COMPLICATING SNOMED Code(s): 429615255161000
--- NOTE | 2018-12-05 06:25 | P.DS ---
Providers Date of admission: 12/04/18 05:50 Expected date of discharge: 12/05/18 Attending physician: Lauro Carmona Primary care physician: Stated None - Discharge Diagnosis(es) (1) 39 weeks gestation of Current Visit: No Status: Acute (2) Elective induction of labor planned Current Visit: No Status: Acute (3) Group B streptococcal carriage complicating Current Visit: No Status: Acute Hospital Course: Please see dictated H&P for intimate details of this patient's admission. Brief summary this pleasant 23-year-old 5 para 3 female 39-1/2 weeks gestation is admitted to labor and delivery for elective induction. Patient is admitted and quickly goes on have a vaginal delivery viable male infant. Please see dictated delivery note. day #1 patient without complaints wishes to go home. Patient's felt be stable for discharge home follow up with me in 6 weeks Procedures: Induction of labor and normal vaginal delivery Plan - Discharge Summary New Discharge Prescriptions: New Ibuprofen [Motrin] 600 mg PO Q6HR PRN #40 tab PRN Reason: Mild Pain Or Fever >= 100.5 No Action Rth-Vlcu-Thfkl Acid [-U Capsule (formulary)] 1 cap PO HS Cephalexin [Keflex] 500 mg PO BID Discharge Medication List Yjc-Krds-Tfwfp Acid [-U Capsule (formulary)] 1 cap PO HS [History] Cephalexin [Keflex] 500 mg PO BID 12/04/18 [History] Ibuprofen [Motrin] 600 mg PO Q6HR PRN #40 tab 12/05/18 [Rx] Follow up Appointment(s)/Referral(s): Lauro Carmona MD [STAFF PHYSICIAN] - 01/15/19 2:30 pm Patient Instructions/Handouts: Vaginal Delivery (DC) Activity/Diet/Wound Care/Special Instructions: No intercourse or anything per vagina for 6 weeks. Please call if any fever, chills, excessive vaginal bleeding, and/or abdominal pain. Discharge Disposition: HOME SELF-CARE
[2018-12-05 08:28] VITALS: BP 106/67; PULSE 81; TEMP 98.1
[2018-12-05] MEDS: SENNOSIDES-DOCUSATE SODIUM 1 EACH TAB PO SCH (08:50)
== END 2018-12-05 11:20 | disposition home or self-care (01) | DRG 807 ==
LOC: 4FBP 05:50
PROVIDERS: ADMIT Obstetrics & Gynecology; ATTEND Obstetrics & Gynecology
PROC: 10E0XZZ Delivery of Products of Conception, External Approach (ICD-10-PCS; principal; 2018-12-04)
PROC: 10907ZC Drainage of Amniotic Fluid, Therapeutic from Products of Conception, Via Natural or Artificial Opening (ICD-10-PCS; principal; 2018-12-04)
PROC: 3E033VJ Introduction of Other Hormone into Peripheral Vein, Percutaneous Approach (ICD-10-PCS; principal; 2018-12-04)
DX: O99.824 Streptococcus B carrier state complicating childbirth (principal); Z37.0 Single live birth; Z3A.39 39 weeks gestation of pregnancy
CPT/HCPCS: 85025; 86850; 86870; 86880; 86900; 86901

== ENCOUNTER 2019-04-23 17:53 | Emergency (ER) | payer OTHER ==
[2019-04-23] MEDS ORDERED: ACETAMINOPHEN TAB 500 MG TAB PO STA (18:46)
[2019-04-23] MEDS ORDERED: SODIUM CHLORIDE 0.9% 1,000 ML IV STA (18:46)
[2019-04-23] MEDS ORDERED: MORPHINE SULFATE 4 MG/ML SYRINGE IVP PRN (19:38)
--- NOTE | 2019-04-23 19:45 | ED ---
General Adult HPI - General Chief complaint: Nausea/Vomiting/Diarrhea Stated complaint: body aches/sore throat/vomiting Time Seen by Provider: 04/23/19 18:45 Source: patient Mode of arrival: ambulatory Limitations: no limitations - History of Present Illness Initial comments: Dictation was produced using [employer] dictation software. please excuse any grammatical, word or spelling errors. Chief Complaint: 23-year-old female presents with myalgias, nausea vomiting diarrhea. History of Present Illness: He 3-year-old female she has past medical history of asthma and neurologic disorder. This morning she had multiple episodes of nausea vomiting diarrhea. Patient states her emesis is nonbilious not bloody. She also complains of sore throat and myalgias. Patient states she feels well yesterday. Patient denies any overt sick contacts, however she does report that some of her kids had flulike symptoms recently. Denies any vaginal discharge vaginal bleeding. Patient states she is not . She also does report sore throat The ROS documented in this emergency department record has been reviewed and confirmed by me. Those systems with pertinent positive or negative responses have been documented in the HPI. All other systems are other negative and/or noncontributory. PHYSICAL EXAM: General Impression: Alert and oriented x3, acute distress secondary to pain HEENT: Normocephalic atraumatic, extra-ocular movements intact, pupils equal and reactive to light bilaterally, mucous membranes moist, oropharyngeal erythema Cardiovascular: Heart regular rate and rhythm, S1&S2 audible, no murmurs, rubs or gallops Chest: Lungs clear to auscultation bilaterally, no rhonchi, no wheeze, no rales Abdomen: Bowel sounds present, abdomen soft, non-tender, non-distended, no organomegaly Musculoskeletal: Pulses present and equal in all extremities, no peripheral edema, diffuse soft tissue pain to palpation Motor: no focal deficits noted Neurological: CN II-XII grossly intact, no focal motor or sensory deficits noted Skin: Intact with no visualized rashes ED course: 23-year-old female presents with sore throat, nausea vomiting diarrhea and constitutional symptoms. Upon arrival shows heart rate of 11.4, heart rate 131, blood pressure 90/50 cumbersome vital signs within acceptable limits. Laboratory evaluation obtained mild leukocytosis 12.6. CBC unremarkable. Coag panel unremarkable. Urine hCG is negative. Strep a positive. Patient given intravenous fluids. Patient reevaluated with improvement of symptoms. Patient requested one IM shot of Bicillin. Patient clear for discharge. Told to take [id number] analgesia and antipyretics for her symptoms. Advised follow-up with primary care physician upon discharge. - Related Data Home Medications Medication Instructions Recorded Confirmed No Known Home Medications 04/23/19 04/23/19 Allergies Allergy/AdvReac Type Severity Reaction Status Date / Time No Known Allergies Allergy Verified 04/23/19 19:16 Review of Systems ROS Statement: Those systems with pertinent positive or pertinent negative responses have been documented in the HPI. ROS Other: All systems not noted in ROS Statement are negative. Past Medical History Past Medical History: Asthma, Neurologic Disorder Additional Past Medical History / Comment(s): scoliosis, FREQUENT EAR INFECTIONS. MIGRANES History of Any Multi-Drug Resistant Organisms: None Reported Past Surgical History: Adenoidectomy, Tonsillectomy Additional Past Surgical History / Comment(s): BMT Past Anesthesia/Blood Transfusion Reactions: No Reported Reaction Past Psychological History: No Psychological Hx Reported Smoking Status: Never smoker Past Alcohol Use History: None Reported Past Drug Use History: None Reported - Past Family History Mother Family Medical History: Cancer General Exam Limitations: no limitations Course Vital Signs 04/23/19 04/23/19 18:07 19:52 Temperature 101.4 F H 101.0 F H Pulse Rate 131 H 121 H Respiratory 20 19 Rate Blood Pressure 93/58 121/56 O2 Sat by Pulse 98 99 Oximetry Medical Decision Making - Lab Data Result diagrams: 04/23/19 19:26 04/23/19 19:26 Lab Results 04/23/19 04/23/19 04/23/19 Range/Units 19:26 19:26 19:45 WBC 12.6 H (3.8-10.6) k/uL RBC 4.58 (3.80-5.40) m/uL Hgb 13.3 (11.4-16.0) gm/dL Hct 39.5 (34.0-46.0) % MCV 86.2 (80.0-100.0) fL MCH 29.0 (25.0-35.0) pg MCHC 33.6 (31.0-37.0) g/dL RDW 12.7 (11.5-15.5) % Plt Count 144 L (150-450) k/uL Neutrophils % 94 % Lymphocytes % 3 % Monocytes % 3 % Eosinophils % 0 % Basophils % 0 % Neutrophils # 11.8 H (1.3-7.7) k/uL Lymphocytes # 0.3 L (1.0-4.8) k/uL Monocytes # 0.4 (0-1.0) k/uL Eosinophils # 0.0 (0-0.7) k/uL Basophils # 0.0 (0-0.2) k/uL Sodium 140 (137-145) mmol/L Potassium 3.9 (3.5-5.1) mmol/L Chloride 105 (98-107) mmol/L Carbon Dioxide 23 (22-30) mmol/L Anion Gap 12 mmol/L BUN 11 (7-17) mg/dL Creatinine 0.68 (0.52-1.04) mg/dL Est GFR (CKD-EPI)AfAm >90 (>60 ml/min/1.73 sqM) Est GFR (CKD-EPI)NonAf >90 (>60 ml/min/1.73 sqM) Glucose 95 (74-99) mg/dL Calcium 9.7 (8.4-10.2) mg/dL Magnesium 1.7 (1.6-2.3) mg/dL Total Bilirubin 2.0 H (0.2-1.3) mg/dL AST 23 (14-36) U/L ALT 22 (9-52) U/L Alkaline Phosphatase 68 (38-126) U/L Total Protein 8.0 (6.3-8.2) g/dL Albumin 4.8 (3.5-5.0) g/dL Urine HCG, Qual (Not Detectd) Influenza Type A RNA Not Detected (Not Detectd) Influenza Type B (PCR) Not Detected (Not Detectd) Group A Strep Rapid (Negative) 04/23/19 04/23/19 Range/Units 19:45 21:02 WBC (3.8-10.6) k/uL RBC (3.80-5.40) m/uL Hgb (11.4-16.0) gm/dL Hct (34.0-46.0) % MCV (80.0-100.0) fL MCH (25.0-35.0) pg MCHC (31.0-37.0) g/dL RDW (11.5-15.5) % Plt Count (150-450) k/uL Neutrophils % % Lymphocytes % % Monocytes % % Eosinophils % % Basophils % % Neutrophils # (1.3-7.7) k/uL Lymphocytes # (1.0-4.8) k/uL Monocytes # (0-1.0) k/uL Eosinophils # (0-0.7) k/uL Basophils # (0-0.2) k/uL Sodium (137-145) mmol/L Potassium (3.5-5.1) mmol/L Chloride (98-107) mmol/L Carbon Dioxide (22-30) mmol/L Anion Gap mmol/L BUN (7-17) mg/dL Creatinine (0.52-1.04) mg/dL Est GFR (CKD-EPI)AfAm (>60 ml/min/1.73 sqM) Est GFR (CKD-EPI)NonAf (>60 ml/min/1.73 sqM) Glucose (74-99) mg/dL Calcium (8.4-10.2) mg/dL Magnesium (1.6-2.3) mg/dL Total Bilirubin (0.2-1.3) mg/dL AST (14-36) U/L ALT (9-52) U/L Alkaline Phosphatase (38-126) U/L Total Protein (6.3-8.2) g/dL Albumin (3.5-5.0) g/dL Urine HCG, Qual Not Detected (Not Detectd) Influenza Type A RNA (Not Detectd) Influenza Type B (PCR) (Not Detectd) Group A Strep Rapid Positive A (Negative) Disposition Clinical Impression: Strep pharyngitis Disposition: HOME SELF-CARE Condition: Good Instructions (If sedation given, give patient instructions): Strep Throat (ED) Is patient prescribed a controlled substance at d/c from ED?: No Referrals: Vilma Mclean MD [Primary Care Provider] - 1-2 days Time of Disposition: 22:39
[2019-04-23 21:25] LABS: Basophils % (A) 0 %; Eosinophils % (A) 0 %; HCT 39.5 % (34.0-46.0); HGB 13.3 gm/dL (11.4-16.0); Lymphocytes # (A) 0.3 k/uL (1.0-4.8); Lymphocytes % (A) 3 %; MCHC 33.6 g/dL (31.0-37.0); MCV 86.2 fL (80.0-100.0); Mean Platelet Volume 9.9; Monocytes # (A) 0.4 k/uL (0-1.0); Monocytes % (A) 3 %; Neutrophils # (A) 11.8 k/uL (1.3-7.7); Neutrophils % (A) 94 %; Platelet Count 144 k/uL (150-450); RBC 4.58 m/uL (3.80-5.40); RDW 12.7 % (11.5-15.5); WBC 12.6 k/uL (3.8-10.6)
[2019-04-23 21:28] LABS: ALT 22 U/L (9-52); AST 23 U/L (14-36); Albumin 4.8 g/dL (3.5-5.0); Alkaline Phosphatase 68 U/L (38-126); Anion Gap 12 mmol/L; Blood Urea Nitrogen 11 mg/dL (7-17); Calcium 9.7 mg/dL (8.4-10.2); Carbon Dioxide 23 mmol/L (22-30); Chloride 105 mmol/L (98-107); Glucose 95 mg/dL (74-99); Magnesium 1.7 mg/dL (1.6-2.3); Potassium 3.9 mmol/L (3.5-5.1); Sodium 140 mmol/L (137-145)
[2019-04-23] MEDS ORDERED: PENICILLIN G BENZATHINE 1,200,000 UNIT/2 ML SYRINGE IM ONE (23:00)
[2019-04-23 23:19] VITALS: BP 103/59; RESP 18
[2019-04-24 00:07] VITALS: PULSE 113; TEMP 100
== END 2019-04-24 00:04 | disposition home or self-care (01) ==
LOC: EC 17:53
DX: J02.0 Streptococcal pharyngitis (principal); D72.829 Elevated white blood cell count, unspecified; R19.7 Diarrhea, unspecified; Z90.89 Acquired absence of other organs
CPT/HCPCS: 36415; 80053; 83735; 85025; 81025; 87430; 87502; 99284; 96374; 96361; 96372; J0561; J2270

== ENCOUNTER 2019-11-24 12:53 | Emergency (ER) | payer OTHER ==
[2019-11-24] MEDS ORDERED: ONDANSETRON 4 MG/2 ML VIAL IVP STA (13:27)
[2019-11-24] MEDS ORDERED: SODIUM CHLORIDE 0.9% 1,000 ML IV STA (13:27)
[2019-11-24] MEDS ORDERED: KETOROLAC 30 MG/ML 1 ML VIAL IVP STA (13:27)
[2019-11-24 13:46] LABS: Basophils % (A) 0 %; Eosinophils # (A) 0.1 k/uL (0-0.7); Eosinophils % (A) 1 %; HCT 42.6 % (34.0-46.0); HGB 14.3 gm/dL (11.4-16.0); Lymphocytes # (A) 0.3 k/uL (1.0-4.8); Lymphocytes % (A) 5 %; MCH 30.6 pg (25.0-35.0); MCHC 33.5 g/dL (31.0-37.0); MCV 91.6 fL (80.0-100.0); Mean Platelet Volume 9.5; Monocytes # (A) 0.2 k/uL (0-1.0); Monocytes % (A) 4 %; Neutrophils % (A) 89 %; Platelet Count 151 k/uL (150-450); RBC 4.65 m/uL (3.80-5.40); RDW 11.9 % (11.5-15.5); WBC 5.6 k/uL (3.8-10.6)
--- NOTE | 2019-11-24 13:48 | ED ---
Nausea/Vomiting/Diarrhea HPI - General Chief complaint: Nausea/Vomiting/Diarrhea Stated complaint: vomitting,back pain Time Seen by Provider: 11/24/19 13:12 Source: patient Mode of arrival: ambulatory Limitations: no limitations - History of Present Illness Initial comments: 24-year-old female patient presents to the emergency department today for evalua tion of nausea, vomiting, back pain. Patient states that symptoms started last evening around 8 PM. Patient does have a history of scoliosis with chronic back pain however this is worse than usual. Patient states that she does have some abdominal pain just prior to vomiting. Denies any hematemesis, hematochezia, or melena. Denies fever or chills. Denies any hematuria, dysuria, urinary freque ncy, urinary urgency. She denies any chance of . Patient denies any recent rash, shortness breath, chest pain, back pain, numbness, tingling, dizziness, weakness, headache, visual changes, or any other complaints. - Related Data Previous Rx's Medication Instructions Recorded Ondansetron [Zofran ODT] 4 mg PO Q8HR PRN #10 tab 11/24/19 Allergies Allergy/AdvReac Type Severity Reaction Status Date / Time No Known Allergies Allergy Verified 11/24/19 13:04 Review of Systems ROS Statement: Those systems with pertinent positive or pertinent negative responses have been documented in the HPI. ROS Other: All systems not noted in ROS Statement are negative. Past Medical History Past Medical History: Asthma, Neurologic Disorder Additional Past Medical History / Comment(s): scoliosis, FREQUENT EAR INFECTIONS. MIGRANES History of Any Multi-Drug Resistant Organisms: None Reported Past Surgical History: Adenoidectomy, Tonsillectomy Additional Past Surgical History / Comment(s): BMT Past Anesthesia/Blood Transfusion Reactions: No Reported Reaction Past Psychological History: No Psychological Hx Reported Smoking Status: Never smoker Past Alcohol Use History: None Reported Past Drug Use History: None Reported - Past Family History Mother Family Medical History: Cancer General Exam Limitations: no limitations General appearance: alert, in no apparent distress, other (Physical well- developed, well-nourished adult female patient in no acute distress. Vital signs upon presentation are temperature 97.8F, pulse 106, respirations 20, blood pressure 106/73, pulse ox 95% on room air.) Eye exam: Present: normal appearance, PERRL, EOMI. Absent: scleral icterus, conjunctival injection, periorbital swelling ENT exam: Present: normal exam, mucous membranes moist Respiratory exam: Present: normal lung sounds bilaterally. Absent: respiratory distress, wheezes, rales, rhonchi, stridor Cardiovascular Exam: Present: regular rate, normal rhythm, normal heart sounds. Absent: systolic murmur, diastolic murmur, rubs, gallop, clicks GI/Abdominal exam: Present: soft, normal bowel sounds. Absent: distended, tenderness, guarding, rebound, rigid Neurological exam: Present: alert, oriented X3, CN II-XII intact Psychiatric exam: Present: normal affect, normal mood Skin exam: Present: warm, dry, intact, normal color. Absent: rash Course Vital Signs 11/24/19 11/24/19 11/24/19 13:01 14:09 15:48 Temperature 97.8 F 98.8 F Pulse Rate 106 H 100 Respiratory 20 18 16 Rate Blood Pressure 106/73 122/71 O2 Sat by Pulse 95 98 Oximetry Medical Decision Making - Medical Decision Making 24-year-old female patient percents emergency department today for evaluation of vomiting and diarrhea since 8 PM last evening. Physical examination is unremarkable. Abdomen soft and nontender. She is also reporting increased her chronic back pain. She has no concerning symptoms for cauda equina. We did give IV fluids and nausea medication itches report improvement in symptoms. She'll be discharged. The primary care physician for recheck in 1-2 days. Return parameters discussed in detail patient verbalizes understanding and agrees with this plan. - Lab Data Result diagrams: 11/24/19 13:30 11/24/19 13:30 Lab Results 11/24/19 11/24/19 11/24/19 Range/Units 13:30 13:30 13:35 WBC 5.6 (3.8-10.6) k/uL RBC 4.65 (3.80-5.40) m/uL Hgb 14.3 (11.4-16.0) gm/dL Hct 42.6 (34.0-46.0) % MCV 91.6 (80.0-100.0) fL MCH 30.6 (25.0-35.0) pg MCHC 33.5 (31.0-37.0) g/dL RDW 11.9 (11.5-15.5) % Plt Count 151 (150-450) k/uL Neutrophils % 89 % Lymphocytes % 5 % Monocytes % 4 % Eosinophils % 1 % Basophils % 0 % Neutrophils # 5.0 (1.3-7.7) k/uL Lymphocytes # 0.3 L (1.0-4.8) k/uL Monocytes # 0.2 (0-1.0) k/uL Eosinophils # 0.1 (0-0.7) k/uL Basophils # 0.0 (0-0.2) k/uL Sodium 140 (137-145) mmol/L Potassium 3.7 (3.5-5.1) mmol/L Chloride 104 (98-107) mmol/L Carbon Dioxide 26 (22-30) mmol/L Anion Gap 10 mmol/L BUN 20 H (7-17) mg/dL Creatinine 0.66 (0.52-1.04) mg/dL Est GFR (CKD-EPI)AfAm >90 (>60 ml/min/1.73 sqM) Est GFR (CKD-EPI)NonAf >90 (>60 ml/min/1.73 sqM) Glucose 107 H (74-99) mg/dL Calcium 9.7 (8.4-10.2) mg/dL Total Bilirubin 1.5 H (0.2-1.3) mg/dL AST 30 (14-36) U/L ALT 25 (4-34) U/L Alkaline Phosphatase 63 (38-126) U/L Total Protein 8.1 (6.3-8.2) g/dL Albumin 4.7 (3.5-5.0) g/dL Amylase 54 (30-110) U/L Lipase 28 (23-300) U/L Urine Color Urine Appearance (Clear) Urine pH (5.0-8.0) Ur Specific [place] (1.001-1.035) Urine Protein (Negative) Urine Glucose (UA) (Negative) Urine Ketones (Negative) Urine Blood (Negative) Urine Nitrite (Negative) Urine Bilirubin (Negative) Urine Urobilinogen (<2.0) mg/dL Ur Leukocyte Esterase (Negative) Urine RBC (0-5) /hpf Urine WBC (0-5) /hpf Ur Squamous Epith Cells (0-4) /hpf Amorphous Sediment (None) /hpf Urine Bacteria (None) /hpf Urine Mucus (None) /hpf Urine HCG, Qual Not Detected (Not Detectd) 11/24/19 Range/Units 13:35 WBC (3.8-10.6) k/uL RBC (3.80-5.40) m/uL Hgb (11.4-16.0) gm/dL Hct (34.0-46.0) % MCV (80.0-100.0) fL MCH (25.0-35.0) pg MCHC (31.0-37.0) g/dL RDW (11.5-15.5) % Plt Count (150-450) k/uL Neutrophils % % Lymphocytes % % Monocytes % % Eosinophils % % Basophils % % Neutrophils # (1.3-7.7) k/uL Lymphocytes # (1.0-4.8) k/uL Monocytes # (0-1.0) k/uL Eosinophils # (0-0.7) k/uL Basophils # (0-0.2) k/uL Sodium (137-145) mmol/L Potassium (3.5-5.1) mmol/L Chloride (98-107) mmol/L Carbon Dioxide (22-30) mmol/L Anion Gap mmol/L BUN (7-17) mg/dL Creatinine (0.52-1.04) mg/dL Est GFR (CKD-EPI)AfAm (>60 ml/min/1.73 sqM) Est GFR (CKD-EPI)NonAf (>60 ml/min/1.73 sqM) Glucose (74-99) mg/dL Calcium (8.4-10.2) mg/dL Total Bilirubin (0.2-1.3) mg/dL AST (14-36) U/L ALT (4-34) U/L Alkaline Phosphatase (38-126) U/L Total Protein (6.3-8.2) g/dL Albumin (3.5-5.0) g/dL Amylase (30-110) U/L Lipase (23-300) U/L Urine Color Dark Brown Urine Appearance Cloudy H (Clear) Urine pH 6.0 (5.0-8.0) Ur Specific [place] 1.042 H (1.001-1.035) Urine Protein 1+ H (Negative) Urine Glucose (UA) Negative (Negative) Urine Ketones 2+ H (Negative) Urine Blood Moderate H (Negative) Urine Nitrite Negative (Negative) Urine Bilirubin 1+ H (Negative) Urine Urobilinogen 6.0 (<2.0) mg/dL Ur Leukocyte Esterase Negative (Negative) Urine RBC 9 H (0-5) /hpf Urine WBC 3 (0-5) /hpf Ur Squamous Epith Cells 4 (0-4) /hpf Amorphous Sediment Rare H (None) /hpf Urine Bacteria Rare H (None) /hpf Urine Mucus Many H (None) /hpf Urine HCG, Qual (Not Detectd) Disposition Clinical Impression: Vomiting, Diarrhea, Chronic back pain Disposition: HOME SELF-CARE Condition: Good Instructions (If sedation given, give patient instructions): Acute Nausea and Vomiting (ED), Acute Diarrhea (ED), Back Pain (ED) Additional Instructions: Start with clear liquid diet and advance as tolerated. Take medications as directed for pain and nausea control. Follow-up with your primary care physician for recheck in 1-2 days. Return to the emergency department immediately for any new, worsening, or concerning symptoms. Prescriptions: Ondansetron [Zofran ODT] 4 mg PO Q8HR PRN #10 tab PRN Reason: Nausea Is patient prescribed a controlled substance at d/c from ED?: No Referrals: None,Stated [Primary Care Provider] - 1-2 days Time of Disposition: 15:31
[2019-11-24 14:09] LABS: ALT 25 U/L (4-34); AST 30 U/L (14-36); African American GFR (CKD) >90 (>60 ml/min/1.73 sqM); Albumin 4.7 g/dL (3.5-5.0); Alkaline Phosphatase 63 U/L (38-126); Amylase 54 U/L (30-110); Anion Gap 10 mmol/L; Blood Urea Nitrogen 20 mg/dL (7-17); Calcium 9.7 mg/dL (8.4-10.2); Carbon Dioxide 26 mmol/L (22-30); Chloride 104 mmol/L (98-107); Glucose 107 mg/dL (74-99); Non-African American GFR(CKD) >90 (>60 ml/min/1.73 sqM); Potassium 3.7 mmol/L (3.5-5.1); Sodium 140 mmol/L (137-145); Total Bilirubin 1.5 mg/dL (0.2-1.3); Total Protein 8.1 g/dL (6.3-8.2)
[2019-11-24 14:57] LABS: Amorphous Sediment,Urine Rare /hpf; Appearance,Urine Cloudy (Clear); Bacteria,Urine Rare /hpf; Bilirubin,Urine 1+ (Negative); Blood,Urine Moderate (Negative); Color,Urine Dark Brown; Glucose,Urine (UA) Negative (Negative); Ketones,Urine 2+ (Negative); Leukocyte Esterase,Urine Negative (Negative); Mucus,Urine Many /hpf; Nitrite,Urine Negative (Negative); Protein,Urine 1+ (Negative); RBC,Urine 9 /hpf (0-5); Specific Gravity,Urine 1.042 (1.001-1.035); Squamous Epithelial Cell,Urine 4 /hpf (0-4); WBC,Urine 3 /hpf (0-5)
[2019-11-24] MEDS ORDERED: MORPHINE SULFATE 2 MG/ML SYRINGE IVP STA (15:29)
[2019-11-24] MEDS ORDERED: ACET/COD 300 MG/30 MG STARTER PACK 6 TAB BTL PO STA (15:29)
[2019-11-24] MEDS ORDERED: ONDANSETRON 4 MG ODT STARTER PACK 2 TAB BTL PO STA (15:30)
[2019-11-24 15:49] VITALS: BP 122/71; PULSE 100; RESP 16; TEMP 98.8
== END 2019-11-24 15:54 | disposition home or self-care (01) ==
LOC: EC 12:53
DX: R11.10 Vomiting, unspecified (principal); R19.7 Diarrhea, unspecified; G89.29 Other chronic pain; M54.9 Dorsalgia, unspecified
CPT/HCPCS: 36415; 80053; 82150; 83690; 85025; 81001; 81025; 99284; 96374; 96375 ×2; 96361 ×2; J2405; J1885; J2270; S0119

== ENCOUNTER → 2020-01-11 | Outpatient (CLI) | payer OTHER ==
--- NOTE | 2020-01-11 16:04 | XR ---
EXAMINATION TYPE: XR lumbosacral spine min 4V DATE OF EXAM: 01/11/2020 CLINICAL HISTORY: pain COMPARISON: 12/19/2016 TECHNIQUE: Frontal, lateral, and oblique images of the lumbar spine are obtained. FINDINGS: Curvature is again noted convex to the right. There are 5 lumbar type vertebral bodies johanny ntified. The lumbar spine shows satisfactory alignment without evidence of acute fracture or disloca tion. Vertebral body heights are within normal limits. Mild degenerative narrowing L5-S1 unchanged fr om prior study. The overlying soft tissue appears unremarkable. IMPRESSION: No acute fracture or dislocation is seen in the lumbar spine.ICD 10 NO FRACTURE, INITIAL EVALUATION
== END | disposition home or self-care (01) ==
LOC: RADXRMAIN 13:40
PROVIDERS: ATTEND Family Medicine
DX: M54.5 Low back pain (principal)
CPT/HCPCS: 72110

== ENCOUNTER → 2021-01-04 | Outpatient (CLI) | payer OTHER ==
--- NOTE | 2021-01-05 09:02 | US ---
EXAMINATION TYPE: Transabdominal DATE OF EXAM: 01/04/2021 3:54 PM COMPARISON: NONE CLINICAL HISTORY: Z36 Confirm dates. Dates. No pain or spotting. EXAM PERFORMED: Transabdominal (TA) EXAM MEASUREMENTS: GESTATIONAL AGE / DATING Dates by LMP: (9 weeks/3 days) EDC: 08/06/2021 Dates by First Scan: No previous this is first scan Dates by Current Scan for: (9 weeks/3 days) EDC: 08/06/2021 MATERNAL ANATOMY Uterus: 11.4 x 8.3 x 6.6 cm. Hypoechoic lesion, possible fibroid = 0.9 x 0.9 x 0.8 cm. Right Ovary: 2.8 x 1.9 x 2.1 cm Left Ovary: 3.2 x 2.1 x 1.7 cm Post CDS / Adnexa: no free fluid, prominent vessels seen in bilateral adnexa Presence of free fluid: no Presence of corpus luteal cyst: no Presence of subchorionic bleed: no GESTATION / SURVEY CRL: 2.6 cm (9 weeks/3 days) MSD: seen, not measured Yolk Sac (normal less than 6mm): 4.0 mm Heart Rate: 174 bpm Rhythm: Normal IUP: Viable IUP Date of LMP: 10/30/2020, Beta HcG (if available): Not available at this time Single live IUP measuring 9 weeks 3 days. IMPRESSION: 1. Small uterine fibroid.
== END | disposition home or self-care (01) ==
LOC: RADUSWWP 15:20
PROVIDERS: ATTEND Obstetrics & Gynecology
DX: Z36.87 Encounter for antenatal screening for uncertain dates (principal); D25.9 Leiomyoma of uterus, unspecified
CPT/HCPCS: 76801

== ENCOUNTER 2021-07-13 16:01 | Inpatient (IN) | payer OTHER ==
--- NOTE | 2021-07-13 16:59 | P.HPOB ---
History of Present Illness H&P Date: 07/13/21 Chief Complaint: Intrauterine at 36 weeks 5 days: IUGR/oligohydramnios Breanna is a 26-year-old at 36 weeks states gestation who was seen at maternal medicine earlier today and noted to have significant oligohydramnios and IUGR. She was instructed to go to labor and delivery there and the expectation was that they were going to induce her, however she declined induction there and came here for induction here. We were notified by maternal- medicine that she was to be delivered. Her cervix however is closed/fingertip and thick we'll plan Cervidil ripening tonight with induction in a.m. All questions are answered for her and risks benefits were reviewed. Pertinent labs include O- blood type, Rh and it was also negative. Rubella is immune, hepatitis B surface antigen/RPR/HIV were all negative group B strep is negative, however she have positive group B strep in a previous and would prefer prophylactic antibiotics. All other questions are answered for her. A category 1 tracing is noted this time. Her course has been essentially unremarkable until last couple of visits when she was measuring off the growth charts and IUGR was suspected. Past Medical History Past Medical History: Asthma, Neurologic Disorder Additional Past Medical History / Comment(s): scoliosis, FREQUENT EAR INFECTIONS. MIGRANES History of Any Multi-Drug Resistant Organisms: None Reported Past Surgical History: Adenoidectomy, Tonsillectomy Additional Past Surgical History / Comment(s): BMT Past Anesthesia/Blood Transfusion Reactions: No Reported Reaction Past Psychological History: No Psychological Hx Reported Past Alcohol Use History: None Reported Past Drug Use History: None Reported - Past Family History Mother Family Medical History: Cancer Medications and Allergies Home Medications Medication Instructions Recorded Confirmed Type Ondansetron [Zofran ODT] 4 mg PO Q8HR PRN #10 tab 11/24/19 Rx Allergies Allergy/AdvReac Type Severity Reaction Status Date / Time No Known Allergies Allergy Verified 07/13/21 16:55 Exam Osteopathic Statement: *. No significant issues noted on an osteopathic structural exam other than those noted in the History and Physical/Consult. Intake and Output 07/13/21 07/13/21 07/13/21 06:59 14:59 22:59 Other: Weight 68.946 kg - OBG Physical Exam Breast: both: normal (no masses) Abdomen: bowel sounds normal, no diffuse tenderness, no bruit present, no guarding noted, no hepatomegaly, no splenomegaly, no mass Vulva: both: normal Vagina: normal moisture, no discharge Cervix: no lesion, no discharge Uterus: normal size, normal contour Adnexa: both: normal Anus/Rectum: normal perianal skin, no rectal mass, no hemorrhoids, heme negative
[2021-07-13] MEDS ORDERED: DINOPROSTONE 10 MG INSERT.ER VAGINAL ONE (17:14)
[2021-07-13 17:55] VITALS: RESP 16
[2021-07-13] MEDS ORDERED: BUTORPHANOL 1 MG/ML 1 ML VIAL IV PRN (19:08)
[2021-07-14] MEDS ORDERED: OXYTOCIN 10 UNIT/ML 1 ML VIAL IM PRN (06:23)
[2021-07-14] MEDS ORDERED: TERBUTALINE 1 MG/ML VIAL SQ PRN (06:23)
[2021-07-14] MEDS ORDERED: METHYLERGONOVINE 0.2 MG/ML 1 ML AMP IM PRN (06:23)
[2021-07-14] MEDS ORDERED: LIDOCAINE 0.5% (PF) 5 MG/ML (50 ML SDV) SQ PRN (06:23)
[2021-07-14] MEDS ORDERED: OXYTOCIN 30 UNITS/500 ML NS 30 UNIT in SALINE 1 500ML.BAG IV SCH ×2 (06:23→19:15)
[2021-07-14] MEDS ORDERED: CARBOPROST TROMETHAMINE 250 MCG/ML 1 ML AMP IM PRN (06:23)
[2021-07-14] MEDS ORDERED: AMPICILLIN 1,000 MG in SODIUM CHLORIDE 0.9% 50 ML IVPB SCH (07:00)
[2021-07-14 07:44] LABS: Anisocytosis Slight; Basophils % (A) 0 %; Eosinophils # (A) 0.1 k/uL (0-0.7); Eosinophils % (A) 1 %; HCT 34.6 % (34.0-46.0); HGB 11.3 gm/dL (11.4-16.0); Hypochromasia Slight; Lymphocytes # (A) 0.7 k/uL (1.0-4.8); Lymphocytes % (A) 7 %; MCH 28.7 pg (25.0-35.0); MCHC 32.7 g/dL (31.0-37.0); MCV 87.9 fL (80.0-100.0); Monocytes # (A) 0.4 k/uL (0-1.0); Monocytes % (A) 4 %; Neutrophils # (A) 9.2 k/uL (1.3-7.7); Neutrophils % (A) 88 %; Platelet Count 162 k/uL (150-450); Poikilocytosis Slight; RBC 3.94 m/uL (3.80-5.40); RDW 16.5 % (11.5-15.5); WBC 10.4 k/uL (3.8-10.6)
[2021-07-14] MEDS ORDERED: AMPICILLIN 2,000 MG in SODIUM CHLORIDE 0.9% 100 ML IVPB STA (08:37)
[2021-07-14] MEDS: LACTATED RINGERS 1,000 ML IV SCH ×4 (09:00→23:11)
[2021-07-14] MEDS ORDERED: BETAMET ACET-BETAMETH SOD PHOS 6 MG/ML MDV IM SCH (12:30)
[2021-07-14] MEDS: AMPICILLIN 1,000 MG in SODIUM CHLORIDE 0.9% 50 ML IVPB SCH ×2 (13:11→17:14)
[2021-07-14] MEDS ORDERED: diphenhydrAMINE 50 MG/ML 1 ML VIAL IVP PRN ×2 (19:10)
[2021-07-14] MEDS ORDERED: diphenhydrAMINE 50 MG CAP PO PRN (19:10)
[2021-07-14] MEDS ORDERED: Rhogam IMMUNE GLOBULIN 1,500 UNIT/1 ML IM ONE (19:10)
[2021-07-14] MEDS ORDERED: HYDROCORTISONE 2.5% RECTAL CREAM 30 GM TUBE RECTAL PRN (19:10)
[2021-07-14] MEDS ORDERED: ZOLPIDEM 5 MG TAB PO PRN (19:10)
[2021-07-14] MEDS ORDERED: LANOLIN CREAM 5 GM TUBE TOPICAL PRN (19:10)
[2021-07-14] MEDS ORDERED: SIMETHICONE 80 MG CHEWABLE PO PRN (19:10)
[2021-07-14] MEDS ORDERED: diphenhydrAMINE 25 MG CAP PO PRN (19:10)
[2021-07-14] MEDS ORDERED: BENZOCAINE/MENTHOL SPRAY 1 GM/SPRAY AEROSOL TOPICAL PRN (19:10)
[2021-07-14] MEDS ORDERED: ACETAMINOPHEN TAB 325 MG TAB PO PRN (19:10)
--- NOTE | 2021-07-14 19:10 | P.PROBDLV ---
Vaginal Delivery Note - . Vaginal Delivery Note: Breanna is a 26-year-old at 36 weeks states gestation who was seen at maternal medicine earlier today and noted to have significant oligohydramnios and IUGR. Her cervix was closed, thick and -2. She was not ferny. heart tones category 1. Cervidil was placed. In the morning she was 37 m dilated, 70% effaced, and -1 station. Amniotomy was performed at 1319 and clear fluid noted. Pitocin was also started. She progressed to complete, pushed and delivered a viable female over intact perineum under epidural anesthesia at 1854. Head delivered OA, anterior shoulder delivered gentle downward guidance followed by posterior shoulder and rest of body. Nose and mouth bulb suctioned, cord clamped and cut, placed mother's abdomen. Apgars 9, 9, weight 5 lbs. 6 oz. Placenta delivered spontaneous, intact with three-vessel cord at 1858. Vagina, cervix, and perineum were inspected. No lacerations noted. Estimated blood loss 300 mL. Mother and baby in stable condition.
[2021-07-14] MEDS: ACETAMINOPHEN TAB 325 MG TAB PO SCH (19:59)
[2021-07-14] MEDS: IBUPROFEN 600 MG TAB PO PRN (23:10)
[2021-07-14] MEDS: SENNOSIDES-DOCUSATE SODIUM 1 EACH TAB PO SCH (23:31)
[2021-07-15] MEDS: ACETAMINOPHEN TAB 325 MG TAB PO SCH ×6 (01:57→21:53)
[2021-07-15] MEDS: IBUPROFEN 600 MG TAB PO PRN ×3 (06:23→18:46)
[2021-07-15 08:39] LABS: Anisocytosis Slight; Basophils % (A) 0 %; Eosinophils % (A) 0 %; HCT 24.2 % (34.0-46.0); HGB 8.1 gm/dL (11.4-16.0); Hypochromasia Slight; Lymphocytes % (A) 8 %; MCH 28.9 pg (25.0-35.0); MCHC 33.3 g/dL (31.0-37.0); Mean Platelet Volume 11.5; Monocytes # (A) 0.7 k/uL (0-1.0); Monocytes % (A) 5 %; Neutrophils # (A) 10.5 k/uL (1.3-7.7); Neutrophils % (A) 85 %; Platelet Count 166 k/uL (150-450); Poikilocytosis Slight; RBC 2.78 m/uL (3.80-5.40); RDW 16.9 % (11.5-15.5); WBC 12.4 k/uL (3.8-10.6)
--- NOTE | 2021-07-15 10:15 | P.PNOBGVD ---
Subjective - Subjective Principal diagnosis: Status post normal vaginal delivery day #1 Interval history: Patient seen and examined. She is suffering from a spinal headache complaints have a blood patch by anesthesia later today. Denies fever chills, chest pain, shortness of breath running calf pain. Patient reports: Reports appetite normal, Reports voiding normally, Reports pain well controlled, Reports ambulating normally [place]: doing well Objective - Latest Vital Signs Latest vital signs: Vital Signs Temp Pulse Resp BP Pulse Ox 07/15/21 08:00 97.8 F 106 H 16 122/77 07/15/21 04:00 98.0 F 95 16 126/79 07/14/21 23:33 98.3 F 90 16 126/71 97 07/14/21 21:26 97.9 F 98 16 129/76 97 07/14/21 20:56 99 16 117/70 99 07/14/21 20:26 94 16 108/63 07/14/21 20:11 112 H 16 124/82 07/14/21 19:56 116 H 16 137/84 100 07/14/21 19:41 93 16 116/69 100 07/14/21 19:26 97.8 F 110 H 16 124/75 99 Intake and Output 07/14/21 07/15/21 07/15/21 22:59 06:59 14:59 Intake Total 1000 Output Total 1700 Balance -1700 1000 Intake: IV 1000 Output: Urine 1200 Straight 800 Estimated Blood Loss 500 Other: # Voids 1 2 - Exam Lungs: bilateral: normal Chest: Normal S1, Normal S2 Extremities: Present: normal Abdomen: Present: normal appearance, soft Uterus: Present: normal, firm - Labs Labs: Abnormal Lab Results - Last 24 Hours (Table) 07/15/21 Range/Units 07:53 WBC 12.4 H (3.8-10.6) k/uL RBC 2.78 L (3.80-5.40) m/uL Hgb 8.1 L D (11.4-16.0) gm/dL Hct 24.2 L (34.0-46.0) % RDW 16.9 H (11.5-15.5) % Neutrophils # 10.5 H (1.3-7.7) k/uL Assessment and Plan (1) Status post normal vaginal delivery Current Visit: Yes Status: Acute Code(s): NZY1781 - SNOMED Code(s): 839840121 (2) Spinal headache Current Visit: Yes Status: Acute Code(s): G97.1 - OTHER REACTION TO SPINAL AND LUMBAR PUNCTURE SNOMED Code(s): 330473991 Plan: 1. Continue care 2. Anesthesia to address spinal headache
--- NOTE | 2021-07-15 16:04 | P.PCN ---
Date of Procedure: 07/15/21 Procedure(s) Performed: Procedure= lumbar epidural blood patch. Preoperative diagnosis= postdural puncture headache. Postoperative diagnoses= post dural puncture headache. Indication for the procedure= patient developed headache after epidural catheter placed for vaginal delivery, patient developed a headache yesterday after she delivered the headache , headache persists in spite of conservative treatment, there is no focal neurological deficit, no fever, no neck stiffness, headache worse with sitting and standing position, and improved with lying supine, for this reason patient is a good candidate for epidural blood patch. anesthesia= local infiltration with lidocaine 1% 3 mL. Complications= none. Description of the procedure= patient identified risks and benefits of the procedure, including but not limited to infection and bleeding , explained to the patient ,and patient agreed with proceeding,Back lumbar area prepped with chlorhexidine 3 times, then drape applied the local infiltration of the skin and subcutaneous tissue with lidocaine 1% 3 mL, at L4-5 interlaminar space then 18- gauge Tuohy needle advanced slowly at L4-5 interlaminar space, There was positive loss of resistance to normal saline, no heme no paresthesia no cerebrospinal fluid, then after that he ML of the blood taken from the patient under strict sterile technique, and after the right antecubital area prepped with a chlorhexidine 3 times using 18-gauge Angiocath, and under sterile technique the 20 ML of the block taken from the patient injected in the epidural space after negative aspiration for heme or CSF, and there was no paresthesia then the needle removed intact the skin cleaned and the , band aid appleid .
[2021-07-15] MEDS: SENNOSIDES-DOCUSATE SODIUM 1 EACH TAB PO SCH ×2 (20:48→21:53)
[2021-07-16] MEDS: ACETAMINOPHEN TAB 325 MG TAB PO SCH ×4 (00:32→13:40)
[2021-07-16] MEDS: IBUPROFEN 600 MG TAB PO PRN ×3 (00:52→14:42)
--- NOTE | 2021-07-16 07:40 | P.DS ---
Providers Date of admission: 07/13/21 16:01 Expected date of discharge: 07/16/21 Attending physician: Lennox Brown Primary care physician: Lennox Brown - Discharge Diagnosis(es) (1) Status post normal vaginal delivery Current Visit: Yes Status: Acute (2) Spinal headache Current Visit: Yes Status: Resolved Hospital Course: Patient presented for induction of labor due to IUGR and oligohydramnios, recommended by [facility]. She had Cervidil induction of labor and then amniotomy and Pitocin in the morning. She underwent a normal vaginal delivery. course was complicated by a spinal headache. She was given conservative measures and then a blood patch. Blood patch did resolve the headache but she does have some back pain now. She denies nausea, vomiting, chest pain, shortness of breath or any calf pain. Patient will be discharged home day #2 in stable condition to follow-up with Dr. Carmona in 6 weeks. Plan - Discharge Summary New Discharge Prescriptions: New Ibuprofen [Motrin] 600 mg PO Q6HR PRN #40 tab PRN Reason: Mild Pain (Scale 1 To 3) No Action Acetaminophen Tab [Tylenol] 650 mg PO Q4H Discharge Medication List Acetaminophen Tab [Tylenol] 650 mg PO Q4H 07/13/21 [History] Ibuprofen [Motrin] 600 mg PO Q6HR PRN #40 tab 07/16/21 [Rx] Follow up Appointment(s)/Referral(s): Lauro Carmona MD [STAFF PHYSICIAN] - 08/21/21 10:15 am Discharge Disposition: HOME SELF-CARE
[2021-07-16 08:56] VITALS: BP 123/70; PULSE 96; TEMP 98
[2021-07-16] MEDS: SENNOSIDES-DOCUSATE SODIUM 1 EACH TAB PO SCH ×2 (09:05→14:43)
[2021-07-17] MEDS ORDERED: ROPIVACAINE 5MG/ML 20ML VIAL ONE (13:21)
[2021-07-17] MEDS ORDERED: SODIUM CHLORIDE 0.9% 100 ML BAG ONE (13:21)
[2021-07-17] MEDS ORDERED: fentaNYL (PF) 50 MCG/ML 5 ML AMP ONE (13:21)
== END 2021-07-16 15:05 | disposition home or self-care (01) | DRG 807 ==
LOC: 4FBP 16:01
PROVIDERS: ADMIT Obstetrics & Gynecology; ATTEND Obstetrics & Gynecology
PROC: 10E0XZZ Delivery of Products of Conception, External Approach (ICD-10-PCS; principal; 2021-07-14)
PROC: 10907ZC Drainage of Amniotic Fluid, Therapeutic from Products of Conception, Via Natural or Artificial Opening (ICD-10-PCS; 2021-07-14)
PROC: 3E0P7VZ Introduction of Hormone into Female Reproductive, Via Natural or Artificial Opening (ICD-10-PCS; 2021-07-14)
PROC: 3E0R3GC Introduction of Other Therapeutic Substance into Spinal Canal, Percutaneous Approach (ICD-10-PCS; 2021-07-15)
DX: O41.03X0 Oligohydramnios, third trimester, not applicable or unspecified (principal); Z37.0 Single live birth; Z3A.36 36 weeks gestation of pregnancy; O36.5930 Maternal care for other known or suspected poor fetal growth, third trimester, not applicable or unspecified; O89.4 Spinal and epidural anesthesia-induced headache during the puerperium; O99.52 Diseases of the respiratory system complicating childbirth; G97.1 Other reaction to spinal and lumbar puncture; J45.909 Unspecified asthma, uncomplicated; M54.9 Dorsalgia, unspecified
CPT/HCPCS: 85025; 86850; 86870; 86880; 86900; 86901; 88307

== ENCOUNTER → 2022-03-06 | Outpatient (CLI) | payer OTHER ==
--- NOTE | 2022-03-06 14:19 | MR ---
EXAMINATION TYPE: MR lumbar spine wo con DATE OF EXAM: 03/06/2022 COMPARISON: Radiograph 01/08/2022 HISTORY: 26-year-old female M54.50, Low back pain TECHNIQUE: Multiplanar, multisequence images of the lumbar spine were acquired without IV contrast. FINDINGS: Vertebral body heights are preserved and alignment is maintained. Straightening of the normal lumbar lordosis. Facet arthropathy lower lumbar spine. Mild degenerative disc disease with desiccation and bulging at L5-S1. Posterior annular fissure is al so noted. No large focal disc herniation or significant spinal canal stenosis. Changes contribute to minimal inferior foraminal narrowing at L4-L5 and mild bilateral neuroforaminal narrowing on both sides at L5-S1. No other spinal canal or neuroforaminal stenosis. Conus medullaris is normal. No suspicious bone marrow replacement. No previous vertebral paravertebral soft tissue abnormality. IMPRESSION: 1. Facet arthropathy lower lumbar spine. There is straightening of the normal lumbar lordosis that co uld be positional or due to muscle spasm. No malalignment. 2. Mild degenerative disc disease L5-S1 with a desiccated and bulging disc along with a posterior gary ular fissure. Changes contribute to mild neural foraminal narrowing on both sides. 3. No significant spinal canal stenosis.
== END | disposition home or self-care (01) ==
LOC: RADMRIMAIN 11:10
PROVIDERS: ATTEND Orthopaedic Surgery
DX: M47.816 Spondylosis without myelopathy or radiculopathy, lumbar region (principal); M51.37 Other intervertebral disc degeneration, lumbosacral region; M40.46 Postural lordosis, lumbar region; M99.73 Connective tissue and disc stenosis of intervertebral foramina of lumbar region
CPT/HCPCS: 72148

== ENCOUNTER 2022-03-24 13:12 | Inpatient (IN) | payer OTHER ==
[2022-03-24] MEDS ORDERED: ONDANSETRON 4 MG/2 ML VIAL IVP STA (14:00)
[2022-03-24] MEDS ORDERED: SODIUM CHLORIDE 0.9% 1,000 ML IV STA ×2 (14:00→15:48)
[2022-03-24] MEDS ORDERED: MORPHINE SULFATE 4 MG/ML SYRINGE IVP STA ×2 (14:01→15:33)
[2022-03-24 14:28] LABS: Basophils # (A) 0.1 k/uL (0-0.2); Basophils % (A) 0 %; Eosinophils % (A) 0 %; HGB 12.8 gm/dL (11.4-16.0); Lymphocytes # (A) 0.4 k/uL (1.0-4.8); Lymphocytes % (A) 3 %; MCH 29.9 pg (25.0-35.0); MCHC 32.1 g/dL (31.0-37.0); MCV 93.3 fL (80.0-100.0); Monocytes # (A) 0.4 k/uL (0-1.0); Monocytes % (A) 3 %; Neutrophils # (A) 13.7 k/uL (1.3-7.7); Neutrophils % (A) 94 %; Platelet Count 149 k/uL (150-450); RBC 4.29 m/uL (3.80-5.40); RDW 12.4 % (11.5-15.5); WBC 14.6 k/uL (3.8-10.6)
[2022-03-24 14:40] LABS: ALT 15 U/L (4-34); AST 16 U/L (14-36); African American GFR (CKD) >90 (>60 ml/min/1.73 sqM); Albumin 4.1 g/dL (3.5-5.0); Alkaline Phosphatase 52 U/L (38-126); Anion Gap 9 mmol/L; Blood Urea Nitrogen 10 mg/dL (7-17); Calcium 8.9 mg/dL (8.4-10.2); Carbon Dioxide 25 mmol/L (22-30); Chloride 106 mmol/L (98-107); Glucose 114 mg/dL (74-99); Non-African American GFR(CKD) >90 (>60 ml/min/1.73 sqM); Potassium 3.7 mmol/L (3.5-5.1); Sodium 140 mmol/L (137-145); Total Bilirubin 1.1 mg/dL (0.2-1.3); Total Protein 7.6 g/dL (6.3-8.2)
--- NOTE | 2022-03-24 15:11 | ED ---
General Adult HPI - General Chief complaint: Back Pain/Injury Stated complaint: back pain, vomiting Time Seen by Provider: 03/24/22 13:54 Source: patient Mode of arrival: ambulatory Limitations: no limitations - History of Present Illness Initial comments: Patient is a 26-year-old female presents to the emergency department with chief complaint of back pain. Patient has a history of chronic back pain however states this pain is more severe and more so in the muscles rather than her spine. The pain started when she woke up this morning was accompanied with nausea and vomiting. Patient has been unable to tolerate food or liquid. She denies fever and chills. Denies abdominal pain, burning with urination, and blood in the urine. Denies chance of . - Related Data Home Medications Medication Instructions Recorded Confirmed Pregabalin [Lyrica] 100 mg PO HS 03/24/22 03/24/22 Allergies Allergy/AdvReac Type Severity Reaction Status Date / Time No Known Allergies Allergy Verified 03/24/22 16:24 Review of Systems ROS Statement: Those systems with pertinent positive or pertinent negative responses have been documented in the HPI. ROS Other: All systems not noted in ROS Statement are negative. Past Medical History Past Medical History: Asthma, Neurologic Disorder Additional Past Medical History / Comment(s): scoliosis, FREQUENT EAR INFECTIONS. MIGRANES History of Any Multi-Drug Resistant Organisms: None Reported Past Surgical History: Adenoidectomy, Tonsillectomy Additional Past Surgical History / Comment(s): BMT Past Anesthesia/Blood Transfusion Reactions: No Reported Reaction Past Psychological History: No Psychological Hx Reported Smoking Status: Never smoker Past Alcohol Use History: None Reported Past Drug Use History: None Reported - Past Family History Mother Family Medical History: Cancer General Exam Limitations: no limitations General appearance: alert, in distress (Due to pain) Head exam: Present: atraumatic, normocephalic, normal inspection Eye exam: Present: normal appearance, PERRL, EOMI. Absent: scleral icterus, conjunctival injection, periorbital swelling Neck exam: Present: normal inspection Respiratory exam: Present: normal lung sounds bilaterally. Absent: respiratory distress, wheezes, rales, rhonchi, stridor Cardiovascular Exam: Present: normal rhythm, tachycardia, normal heart sounds. Absent: regular rate, systolic murmur, diastolic murmur, rubs, gallop, clicks GI/Abdominal exam: Present: soft, normal bowel sounds. Absent: distended, tenderness, guarding, rebound, rigid Back exam: Present: full ROM, CVA tenderness (R), paraspinal tenderness (Right- sided). Absent: CVA tenderness (L), vertebral tenderness Neurological exam: Present: alert, oriented X3, CN II-XII intact Psychiatric exam: Present: normal affect, normal mood Skin exam: Present: warm, dry, intact, normal color. Absent: rash Course Vital Signs 03/24/22 13:16 Temperature 99.8 F H Pulse Rate 120 H Respiratory 22 Rate Blood Pressure 114/77 O2 Sat by Pulse 99 Oximetry Medical Decision Making - Medical Decision Making This is a 26-year-old female who presents with back pain and intractable nausea and vomiting. Thorough history and examination were performed. Patient has elevated temperature 99.8F. She is tachycardic at 120 beats per minute. She is well-appearing although appears to be in pain. The abdomen is soft and nontender. Right-sided CVA tenderness is noted. Urinalysis reveals significant infection. Patient given large fluid bolus, ceftriaxone, and Zofran. Pain control with morphine. Blood cultures and lactic acid ordered. Because patient is unable to tolerate PO I do recommend she stay for observation with IV antibiotics. Case discussed with Dr. Gooden. Patient will be admitted to her service for observation. Patient is agreeable to admission. Dr. Egan is my attending. - Lab Data Result diagrams: 03/24/22 14:18 03/24/22 14:18 Lab Results 03/24/22 03/24/22 03/24/22 Range/Units 14:18 14:18 14:18 WBC 14.6 H (3.8-10.6) k/uL RBC 4.29 (3.80-5.40) m/uL Hgb 12.8 (11.4-16.0) gm/dL Hct 40.0 (34.0-46.0) % MCV 93.3 (80.0-100.0) fL MCH 29.9 (25.0-35.0) pg MCHC 32.1 (31.0-37.0) g/dL RDW 12.4 (11.5-15.5) % Plt Count 149 L (150-450) k/uL MPV 11.0 Neutrophils % 94 % Lymphocytes % 3 % Monocytes % 3 % Eosinophils % 0 % Basophils % 0 % Neutrophils # 13.7 H (1.3-7.7) k/uL Lymphocytes # 0.4 L (1.0-4.8) k/uL Monocytes # 0.4 (0-1.0) k/uL Eosinophils # 0.0 (0-0.7) k/uL Basophils # 0.1 (0-0.2) k/uL Sodium 140 (137-145) mmol/L Potassium 3.7 (3.5-5.1) mmol/L Chloride 106 (98-107) mmol/L Carbon Dioxide 25 (22-30) mmol/L Anion Gap 9 mmol/L BUN 10 (7-17) mg/dL Creatinine 0.79 (0.52-1.04) mg/dL Est GFR (CKD-EPI)AfAm >90 (>60 ml/min/1.73 sqM) Est GFR (CKD-EPI)NonAf >90 (>60 ml/min/1.73 sqM) Glucose 114 H (74-99) mg/dL Calcium 8.9 (8.4-10.2) mg/dL Total Bilirubin 1.1 (0.2-1.3) mg/dL AST 16 (14-36) U/L ALT 15 (4-34) U/L Alkaline Phosphatase 52 (38-126) U/L Total Protein 7.6 (6.3-8.2) g/dL Albumin 4.1 (3.5-5.0) g/dL Urine Color Yellow Urine Appearance Cloudy H (Clear) Urine pH 5.5 (5.0-8.0) Ur Specific [place] 1.018 (1.001-1.035) Urine Protein 1+ H (Negative) Urine Glucose (UA) Negative (Negative) Urine Ketones 2+ H (Negative) Urine Blood Moderate H (Negative) Urine Nitrite Positive H (Negative) Urine Bilirubin Negative (Negative) Urine Urobilinogen <2.0 (<2.0) mg/dL Ur Leukocyte Esterase Large H (Negative) Urine RBC 8 H (0-5) /hpf Urine WBC >182 H (0-5) /hpf Urine WBC Clumps Few H (None) /hpf Urine Bacteria Many H (None) /hpf Urine Mucus Moderate H (None) /hpf Urine HCG, Qual (Not Detectd) 03/24/22 Range/Units 14:18 WBC (3.8-10.6) k/uL RBC (3.80-5.40) m/uL Hgb (11.4-16.0) gm/dL Hct (34.0-46.0) % MCV (80.0-100.0) fL MCH (25.0-35.0) pg MCHC (31.0-37.0) g/dL RDW (11.5-15.5) % Plt Count (150-450) k/uL MPV Neutrophils % % Lymphocytes % % Monocytes % % Eosinophils % % Basophils % % Neutrophils # (1.3-7.7) k/uL Lymphocytes # (1.0-4.8) k/uL Monocytes # (0-1.0) k/uL Eosinophils # (0-0.7) k/uL Basophils # (0-0.2) k/uL Sodium (137-145) mmol/L Potassium (3.5-5.1) mmol/L Chloride (98-107) mmol/L Carbon Dioxide (22-30) mmol/L Anion Gap mmol/L BUN (7-17) mg/dL Creatinine (0.52-1.04) mg/dL Est GFR (CKD-EPI)AfAm (>60 ml/min/1.73 sqM) Est GFR (CKD-EPI)NonAf (>60 ml/min/1.73 sqM) Glucose (74-99) mg/dL Calcium (8.4-10.2) mg/dL Total Bilirubin (0.2-1.3) mg/dL AST (14-36) U/L ALT (4-34) U/L Alkaline Phosphatase (38-126) U/L Total Protein (6.3-8.2) g/dL Albumin (3.5-5.0) g/dL Urine Color Urine Appearance (Clear) Urine pH (5.0-8.0) Ur Specific [place] (1.001-1.035) Urine Protein (Negative) Urine Glucose (UA) (Negative) Urine Ketones (Negative) Urine Blood (Negative) Urine Nitrite (Negative) Urine Bilirubin (Negative) Urine Urobilinogen (<2.0) mg/dL Ur Leukocyte Esterase (Negative) Urine RBC (0-5) /hpf Urine WBC (0-5) /hpf Urine WBC Clumps (None) /hpf Urine Bacteria (None) /hpf Urine Mucus (None) /hpf Urine HCG, Qual Not Detected (Not Detectd) Disposition Clinical Impression: Pyelonephritis Disposition: ADMITTED IP TO THIS HOSP Condition: Fair Referrals: Nonstaff,Physician [REFERRING] - 1-2 days Decision Time: 16:54
[2022-03-24 15:25] LABS: Appearance,Urine Cloudy (Clear); Bacteria,Urine Many /hpf; Bilirubin,Urine Negative (Negative); Blood,Urine Moderate (Negative); Color,Urine Yellow; Glucose,Urine (UA) Negative (Negative); Ketones,Urine 2+ (Negative); Leukocyte Esterase,Urine Large (Negative); Mucus,Urine Moderate /hpf; Nitrite,Urine Positive (Negative); PH, Urine 5.5 (5.0-8.0); Protein,Urine 1+ (Negative); RBC,Urine 8 /hpf (0-5); Specific Gravity,Urine 1.018 (1.001-1.035); Urobilinogen,Urine <2.0 mg/dL (<2.0); WBC,Urine >182 /hpf (0-5)
[2022-03-24] MEDS ORDERED: IBUPROFEN 600 MG TAB PO STA (15:45)
[2022-03-24] MEDS ORDERED: cefTRIAXone IN SWFI 1,000 MG/10 ML SYRINGE IVP STA (15:47)
[2022-03-24] MEDS ORDERED: ONDANSETRON 4 MG/2 ML VIAL IVP PRN ×2 (16:06→17:46)
[2022-03-24] MEDS ORDERED: IBUPROFEN 400 MG TAB PO PRN (16:06)
[2022-03-24] MEDS ORDERED: NALOXONE 0.4 MG/ML 1 ML VIAL IV PRN (17:45)
[2022-03-24 17:46] LABS: Amphetamine Screen,Urine Not Detected (NotDetected); Barbiturate Screen,Urine Not Detected (NotDetected); Benzodiazepines Screen,Urine Not Detected (NotDetected); Cocaine Screen,Urine Not Detected (NotDetected); Methadone Screen, Urine Not Detected (NotDetected); Opiate Screen,Urine Detected (NotDetected); Oxycodone Screen, Urine Not Detected (NotDetected); Phencyclidine Screen,Urine Not Detected (NotDetected); Tricyclic Antidepressant,Urine Not Detected (NotDetected); Urn Cannabinoid Scrn Not Detected (NotDetected)
[2022-03-24] MEDS ORDERED: ACETAMINOPHEN TAB 325 MG TAB PO PRN (17:46)
--- NOTE | 2022-03-24 18:06 | P.HPIM ---
History of Present Illness H&P Date: 03/24/22 Chief Complaint: back pain Patient is a 26-year-old female with a history of degenerative disc disease, asthma, scoliosis, and caffeine induced migraine headaches who presented to the ER with complaints of back pain. On arrival to the ER her pulse was 120. Temperature was 99.8. Laboratory analysis showed white blood cell, 14.6, platelets of 149, urinalysis was positive for nitrites and had 182 white blood cells. She was diagnosed with UTI with sepsis. She was started on Rocephin and IV fluids. Patient seen and examined at bedside. She complains of low back pain. It is mostly on the right but also on the left. It is in the sacroiliac regions. She reports it is worse with movement and standing. Today she started having some numbness in her left buttock. She also reports she is unable to stand straight secondary to the pain. She reports feeling weak. She did develop nausea today and was unable to tolerate oral intake but she thinks it is secondary to the pain. She denies any fevers or chills at home. She denies any riders. She denies any dysuria but does report some urinary frequency. She denies any history of recurrent urinary tract infections. She states she thought her pain was from her back. She reports that she's being worked up by Dr. Goodman martin and had an MRI approximately one month ago. She reports that her back pain initially started after her child. She reports that she developed a spinal headache requiring a blood patch. She states her morphine wore off after 1.5 hours and she again required more morphine. Pertinent positives and negatives as discussed in HPI, a complete review of systems was performed and all other systems are negative. General: non toxic, ill appearing, mild distress, appears at stated age Derm: warm, dry Head: atraumatic, normocephalic, symmetric Eyes: EOMI, no lid lag, anicteric sclera, pupils equal round reactive to light ENT: Nose and ears atraumatic, no thrush, no pharyngeal erythema Neck: No thyromegaly, no cervical lymphadenopathy, trachea midline, supple Mouth: no lip lesion, mucus membranes moist Cardiovascular: S1S2 reg, no murmur, positive posterior tibial pulse bilateral, no edema, capillary refill less than 2 seconds Lungs: clear to ascultation bilateral, no ronchi, no rales, no wheeze, no accessory muscle use Abdominal: soft, nontender to palpation, no guarding, no appreciable organomegaly, normal bowel sounds, CVA pain on the left Ext: no gross muscle atrophy, muscle strength muscle strength 5 out of 5 in all 4 extremities, no contractures Neuro: CN II-XI grossly intact, light touch intact all 4 extremities, finger to nose within normal limits, Musculoskeletal: Give way weakness of b/l hip flexor and b/l foot flexion and extension Psych: Alert, oriented, appropriate affect Assessment/plan: Pyelonephritis with sepsis - Rocephin, IVF, await urine culture - pain control, antiemetics - check renal ultrasound Acute on chronic back pain - MRI reviewed with mild disc disease - outpatient follow up with Dr. Duarte - resume home lyrica Asthma without exacerbation Hx Migraine headaches The patient is placed in observation with an anticipated less than 2 midnight stay for evaluation of pyelonephritis with sepsis. DVT prophylaxis: early ambulation Discussed with: patient, nursing, ED provider Anticipated discharge date: in AM Anticipated discharge place: home A total of 45 minutes was spent on the care of this complex patient more than 50% of the time was spent in counseling and care coordination. Past Medical History Past Medical History: Asthma, Neurologic Disorder Additional Past Medical History / Comment(s): scoliosis, FREQUENT EAR INFECTIONS. MIGRANES History of Any Multi-Drug Resistant Organisms: None Reported Past Surgical History: Adenoidectomy, Tonsillectomy Additional Past Surgical History / Comment(s): BMT Past Anesthesia/Blood Transfusion Reactions: No Reported Reaction Past Psychological History: No Psychological Hx Reported Smoking Status: Never smoker Past Alcohol Use History: None Reported Past Drug Use History: None Reported - Past Family History Mother Family Medical History: Cancer Medications and Allergies Home Medications Medication Instructions Recorded Confirmed Type Pregabalin [Lyrica] 100 mg PO HS 03/24/22 03/24/22 History Allergies Allergy/AdvReac Type Severity Reaction Status Date / Time No Known Allergies Allergy Verified 03/24/22 16:24 Physical Exam Osteopathic Statement: *. No significant issues noted on an osteopathic struct ural exam other than those noted in the History and Physical/Consult. Vitals: Vital Signs Temp Pulse Resp BP Pulse Ox 03/24/22 17:56 118 H 18 101/57 98 03/24/22 13:16 99.8 F H 120 H 22 114/77 99 Intake and Output 03/24/22 03/24/22 03/24/22 06:59 14:59 22:59 Other: Weight 54.431 kg Results CBC & Chem 7: 03/24/22 14:18 03/24/22 14:18 Labs: Abnormal Lab Results - Last 24 Hours (Table) 03/24/22 03/24/22 03/24/22 Range/Units 14:18 14:18 14:18 WBC 14.6 H (3.8-10.6) k/uL Plt Count 149 L (150-450) k/uL Neutrophils # 13.7 H (1.3-7.7) k/uL Lymphocytes # 0.4 L (1.0-4.8) k/uL Glucose 114 H (74-99) mg/dL Urine Appearance Cloudy H (Clear) Urine Protein 1+ H (Negative) Urine Ketones 2+ H (Negative) Urine Blood Moderate H (Negative) Urine Nitrite Positive H (Negative) Ur Leukocyte Esterase Large H (Negative) Urine RBC 8 H (0-5) /hpf Urine WBC >182 H (0-5) /hpf Urine WBC Clumps Few H (None) /hpf Urine Bacteria Many H (None) /hpf Urine Mucus Moderate H (None) /hpf Urine Opiates Screen (NotDetected) 03/24/22 Range/Units 17:31 WBC (3.8-10.6) k/uL Plt Count (150-450) k/uL Neutrophils # (1.3-7.7) k/uL Lymphocytes # (1.0-4.8) k/uL Glucose (74-99) mg/dL Urine Appearance (Clear) Urine Protein (Negative) Urine Ketones (Negative) Urine Blood (Negative) Urine Nitrite (Negative) Ur Leukocyte Esterase (Negative) Urine RBC (0-5) /hpf Urine WBC (0-5) /hpf Urine WBC Clumps (None) /hpf Urine Bacteria (None) /hpf Urine Mucus (None) /hpf Urine Opiates Screen Detected H (NotDetected)
--- NOTE | 2022-03-24 18:26 | US ---
EXAMINATION TYPE: US renals and bladder DATE OF EXAM: 03/24/2022 COMPARISON: NONE CLINICAL HISTORY: pyelonephritis. Patient states having a kidney and bladder infection. Right lower back pain. EXAM MEASUREMENTS: Right Kidney: 10.8 x 4.4 x 3.8 cm Left Kidney: 11.8 x 4.4 x 4.2 cm Right Kidney: No hydronephrosis or masses seen Left Kidney: No hydronephrosis or masses seen Bladder: distended, debris visualized Bilateral Jets seen IMPRESSION: There is some minimal debris in the urinary bladder. No evidence of renal mass or obstruction.
[2022-03-24] MEDS: PREGABALIN 100 MG CAP PO SCH (20:02)
[2022-03-24] MEDS: KETOROLAC 15 MG/ML 1 ML VIAL IVP PRN (20:02)
[2022-03-24] MEDS: MORPHINE SULFATE 4 MG/ML SYRINGE IVP PRN (20:03)
[2022-03-25 06:38] LABS: Basophils % (A) 0 %; Eosinophils % (A) 0 %; HCT 35.8 % (34.0-46.0); HGB 11.4 gm/dL (11.4-16.0); Lymphocytes # (A) 0.6 k/uL (1.0-4.8); Lymphocytes % (A) 4 %; MCH 30.1 pg (25.0-35.0); MCHC 31.8 g/dL (31.0-37.0); MCV 94.6 fL (80.0-100.0); Monocytes # (A) 0.6 k/uL (0-1.0); Monocytes % (A) 4 %; Neutrophils # (A) 13.7 k/uL (1.3-7.7); Neutrophils % (A) 91 %; Platelet Count 125 k/uL (150-450); RBC 3.78 m/uL (3.80-5.40); RDW 12.5 % (11.5-15.5)
[2022-03-25 06:48] LABS: African American GFR (CKD) >90 (>60 ml/min/1.73 sqM); Anion Gap 9 mmol/L; Blood Urea Nitrogen 7 mg/dL (7-17); Calcium 7.3 mg/dL (8.4-10.2); Carbon Dioxide 24 mmol/L (22-30); Chloride 105 mmol/L (98-107); Glucose 109 mg/dL (74-99); Non-African American GFR(CKD) >90 (>60 ml/min/1.73 sqM); Potassium 3.6 mmol/L (3.5-5.1); Sodium 138 mmol/L (137-145)
[2022-03-25] MEDS: MORPHINE SULFATE 4 MG/ML SYRINGE IVP PRN ×2 (07:44→20:12)
[2022-03-25] MEDS: KETOROLAC 15 MG/ML 1 ML VIAL IVP PRN ×2 (10:00→20:11)
[2022-03-25] MEDS ORDERED: ASPIRIN-ACET-CAFF 250-250-65MG 1 EACH TAB PO PRN (14:23)
--- NOTE | 2022-03-25 16:08 | P.PN ---
Subjective Progress Note Date: 03/25/22 Principal diagnosis: Pyelonephritis Patient was seen and examined. No acute events overnight. Patient reports some nausea but no vomiting. Able to tolerate clear liquid diet. She continues to report right-sided flank pain requiring IV narcotics. Her heart rate continues to be in the 100s. Blood pressure stable. CBC shows leukocytosis of 15 and platelet count of 125. CMP shows glucose 109 and calcium of 7.3. Renal ultrasound shows minimal debris in the urinary bladder, no evidence of renal mass or obstruction. Objective - Vital Signs Vital signs: Vital Signs Temp 98.4 F 03/25/22 14:16 Pulse 113 H 03/25/22 14:16 Resp 22 03/25/22 14:16 BP 105/71 03/25/22 14:16 Pulse Ox 100 03/25/22 14:16 Intake & Output 03/24/22 03/25/22 03/25/22 18:59 06:59 18:59 Intake Total 180 Balance 180 Weight 54.431 kg Intake: Oral 180 Other: Voiding Method Toilet Toilet # Voids 1 3 - Exam General: [non toxic], [no distress], [appears at stated age] Derm: [warm], [dry] Head: [atraumatic], [normocephalic], [symmetric] Eyes: [EOMI], [no lid lag], [anicteric sclera] Mouth: [no lip lesion], [mucus membranes moist] Cardiovascular: [S1S2 reg], [no murmur], [tachycardic], Lungs: [CTA bilateral], [no rhonchi, no rales] , [no accessory muscle use] Abdominal: [soft], [ nontender to palpation], [no guarding], [right CVA tenderness] Ext: [no gross muscle atrophy], [no edema], [no contractures] Neuro: [no focal neuro deficits] Psych: [Alert], [oriented], [appropriate affect] - Labs CBC & Chem 7: 03/25/22 06:14 03/25/22 06:14 Labs: Abnormal Lab Results - Last 24 Hours (Table) 03/24/22 03/25/22 03/25/22 Range/Units 17:31 06:14 06:14 WBC 15.0 H (3.8-10.6) k/uL RBC 3.78 L (3.80-5.40) m/uL Plt Count 125 L (150-450) k/uL Neutrophils # 13.7 H (1.3-7.7) k/uL Lymphocytes # 0.6 L (1.0-4.8) k/uL Glucose 109 H (74-99) mg/dL Calcium 7.3 L (8.4-10.2) mg/dL Urine Opiates Screen Detected H (NotDetected) Microbiology - Last 24 Hours (Table) 03/24/22 14:18 Urine Culture - Preliminary Urine,Clean Catch Assessment and Plan Assessment: #Pyelonephritis with sepsis #Acute on chronic back pain #Thrombocytopenia #Hypocalcemia Patient meets sepsis criteria with leukocytosis, tachycardia and positive source of infection. Her lactic acid is negative. Urinalysis shows positive nitrite and large leukocyte esterase. Urine and blood culture is currently pending. She'll be continued on Rocephin. Telemetry monitoring will be ordered. Pain control with [place], Toradol, morphine as needed. Tylenol as needed for fever or chills. Zofran as needed for nausea or vomiting. Her lumbar MRI shows mild DJD L5 to S1 with desiccated and bulging disc along th e posterior annular fissure. She'll be restarted on her home dose of Lyrica and she will need to see Dr. Duarte in the outpatient setting. Chronic conditions: Asthma without exacerbation, Hx Migraine headaches Patient will be switched to inpatient while awaiting culture results. DVT prophylaxis: early ambulation Discussed with: patient, nursing Anticipated discharge date: [address]: home
[2022-03-25] MEDS: HYDROcodone/APAP 5-325MG 1 EACH TAB PO PRN (16:23)
[2022-03-25] MEDS: PREGABALIN 100 MG CAP PO SCH (20:11)
[2022-03-26] MEDS: HYDROcodone/APAP 5-325MG 1 EACH TAB PO PRN ×2 (01:25→10:10)
[2022-03-26] MEDS: MORPHINE SULFATE 4 MG/ML SYRINGE IVP PRN (06:30)
[2022-03-26 09:28] LABS: African American GFR (CKD) 117.8 (60.0-200.0); Anion Gap 8.6 mmol/L (10.00-18.00); BUN/Creat Ratio 7.98 Ratio (12.00-20.00); Blood Urea Nitrogen 6.4 mg/dL (9.0-27.0); Calcium 7.8 mg/dL (8.7-10.3); Carbon Dioxide 25.8 mmol/L (20.0-27.5); Non-African American GFR(CKD) 101.7 (60.0-200.0); Potassium 3.2 mmol/L (3.5-5.5)
[2022-03-26 09:44] LABS: HCT 31.4 % (37.2-46.3); MCH 30.5 pg (27.0-32.0); MCHC 31.8 g/dL (32.0-37.0); MCV 95.7 fL (80.0-97.0); Mean Platelet Volume 13.6 fL (9.5-12.2); NRBC Per 100 WBC 0 /100 WBCS (0.0-0.0); Platelet Count 109 X 10*3/uL (140-440); RBC 3.28 X 10*6/uL (4.10-5.20); RDW 12.3 % (11.5-14.5); WBC 8.24 X 10*3/uL (4.50-10.00)
[2022-03-26 13:03] VITALS: BMI 17.7
[2022-03-26 14:02] VITALS: BP 123/80; PULSE 82; RESP 18; TEMP 97.7
[2022-03-26] MEDS ORDERED: POTASSIUM CHLORIDE ER 20 MEQ TAB.ER PO STA (14:04)
--- NOTE | 2022-03-26 14:10 | P.PN ---
Subjective Progress Note Date: 03/26/22 Principal diagnosis: Pyelonephritis Patient was seen and examined. No acute events overnight. Patient reports some nausea but no vomiting. Able to tolerate clear liquid diet. She continues to report right-sided flank pain requiring IV narcotics, thought better. Her heart rate continues to be in the 100s. Blood pressure stable. Leukocytosis resolved. Potassium 3.2 today. Urine culture gram negative bacilli. Objective - Vital Signs Vital signs: Vital Signs Temp 97.7 F 03/26/22 14:00 Pulse 82 03/26/22 14:00 Resp 18 03/26/22 14:00 BP 123/80 03/26/22 14:00 Pulse Ox 99 03/26/22 14:00 Intake & Output 03/25/22 03/26/22 03/26/22 18:59 06:59 18:59 Intake Total 180 120 Balance 180 120 Weight 54.431 kg Intake: Oral 180 120 Other: Voiding Method Toilet Toilet Toilet # Voids 3 2 0 - Exam General: [non toxic], [no distress], [appears at stated age] Derm: [warm], [dry] Head: [atraumatic], [normocephalic], [symmetric] Eyes: [EOMI], [no lid lag], [anicteric sclera] Mouth: [no lip lesion], [mucus membranes moist] Cardiovascular: [S1S2 reg], [no murmur], [tachycardic], Lungs: [CTA bilateral], [no rhonchi, no rales] , [no accessory muscle use] Abdominal: [soft], [ nontender to palpation], [no guarding], [right CVA tenderness] Ext: [no gross muscle atrophy], [no edema], [no contractures] Neuro: [no focal neuro deficits] Psych: [Alert], [oriented], [appropriate affect] - Labs CBC & Chem 7: 03/26/22 04:07 03/26/22 04:07 Labs: Abnormal Lab Results - Last 24 Hours (Table) 03/26/22 03/26/22 Range/Units 04:07 04:07 RBC 3.28 L (4.10-5.20) X 10*6/uL Hgb 10.0 L (12.0-15.0) g/dL Hct 31.4 L (37.2-46.3) % MCHC 31.8 L (32.0-37.0) g/dL Plt Count 109 L (140-440) X 10*3/uL MPV 13.6 H (9.5-12.2) fL Potassium 3.2 L (3.5-5.5) mmol/L Anion Gap 8.60 L (10.00-18.00) mmol/L BUN 6.4 L (9.0-27.0) mg/dL BUN/Creatinine Ratio 7.98 L (12.00-20.00) Ratio Calcium 7.8 L (8.7-10.3) mg/dL Microbiology - Last 24 Hours (Table) 03/24/22 19:36 Blood Culture - Preliminary Blood No Growth after 24 hours 03/24/22 19:36 Blood Culture - Preliminary Blood No Growth after 24 hours 03/24/22 14:18 Urine Culture - Preliminary Urine,Clean Catch Gram Neg Bacilli Assessment and Plan Assessment: #Pyelonephritis with sepsis #Acute on chronic back pain #Hypokalemia #Normocytic anemia #Thrombocytopenia #Hypocalcemia (03/25) Patient meets sepsis criteria with leukocytosis, tachycardia and positive source of infection. Her lactic acid is negative. Urinalysis shows positive nitrite and large leukocyte esterase. Urine and blood culture is currently pending. She'll be continued on Rocephin. Telemetry monitoring will be ordered. Pain control with [place], Toradol, morphine as needed. Tylenol as needed for fever or chills. Zofran as needed for nausea or vomiting. Her lumbar MRI shows mild DJD L5 to S1 with desiccated and bulging disc along the posterior annular fissure. She'll be restarted on her home dose of Lyrica and she will need to see Dr. Duarte in the outpatient setting. (03/26) Her leukocytosis has resolved. Flank pain improving. Urine culture shows gram negative bacilli. Culture and sensitivities pending. Continue IV antibiotics as above. Continue Normal saline at 100 cc/h. Potassium replaced with 40 mEq by mouth. Decreasing platelet count and hemoglobin likely dilutional. Anticipate DC home after urine culture finalizes. Chronic conditions: Asthma without exacerbation, Hx Migraine headaches Patient will be switched to inpatient while awaiting culture results. DVT prophylaxis: early ambulation Discussed with: patient, nursing Anticipated discharge date: 1-[address]: home
[2022-03-26] MEDS ORDERED: SODIUM CHLORIDE 0.9% 1,000 ML IV SCH (14:15)
--- NOTE | 2022-03-26 17:56 | P.DS ---
Providers Date of admission: 03/26/22 08:13 Expected date of discharge: 03/26/22 Attending physician: Yun Mitchell DO Primary care physician: Stated None Hospital Course: Patient is a 26-year-old female with a history of degenerative disc disease, asthma, scoliosis, and caffeine induced migraine headaches who presented to the ER with complaints of back pain. On arrival to the ER her pulse was 120. Temperature was 99.8. Laboratory analysis showed white blood cell, 14.6, platelets of 149, urinalysis was positive for nitrites and had 182 white blood cells. She was diagnosed with UTI with sepsis. She was started on Rocephin and IV fluids. Patient seen and examined at bedside. She complains of low back pain. It is mostly on the right but also on the left. It is in the sacroiliac regions. She reports it is worse with movement and standing. Today she started having some numbness in her left buttock. She also reports she is unable to stand straight secondary to the pain. She reports feeling weak. She did develop nausea today and was unable to tolerate oral intake but she thinks it is secondary to the pain. She denies any fevers or chills at home. She denies any riders. She denies any dysuria but does report some urinary frequency. She denies any history of recurrent urinary tract infections. She states she thought her pain was from her back. She reports that she's being worked up by Dr. Goodman martin and had an MRI approximately one month ago. She reports that her back pain initially started after her child. She reports that she developed a spinal headache requiring a blood patch. She states her morphine wore off after 1.5 hours and she again required more morphine. Patient received 2 days of Rocephin. Urine culture came back positive for E. coli pansensitive. Her leukocytosis resolved and vital signs improved. Renal ultrasound showed minimal debris in the urinary bladder with no evidence of renal mass or obstruction. Her electrolytes were replaced as per protocol. Patient was advised to continue 5 more days of Bactrim by mouth to complete a total of 7 days antibiotics. She was advised follow-up with her PCP within 1-2 days of discharge. Advised to follow-up with Dr. Duarte with regard to her chronic lower back pain. This complex discharge took about 45 minutes to complete. General: [non toxic], [no distress], [appears at stated age] Derm: [warm], [dry] Head: [atraumatic], [normocephalic], [symmetric] Eyes: [EOMI], [no lid lag], [anicteric sclera] Mouth: [no lip lesion], [mucus membranes moist] Cardiovascular: [S1S2 reg], [no murmur], [tachycardic], Lungs: [CTA bilateral], [no rhonchi, no rales] , [no accessory muscle use] Abdominal: [soft], [ nontender to palpation], [no guarding], [right CVA tenderness] Ext: [no gross muscle atrophy], [no edema], [no contractures] Neuro: [no focal neuro deficits] Psych: [Alert], [oriented], [appropriate affect] Discharge diagnosis: #Pyelonephritis with sepsis #Acute on chronic back pain #Hypokalemia #Normocytic anemia #Thrombocytopenia #Hypocalcemia Pertinent Studies: Renal US Urine culture Patient Condition at Discharge: Stable Plan - Discharge Summary Discharge Rx Participant: No New Discharge Prescriptions: New HYDROcodone/APAP 5-325MG [Simpson 5-325] 1 each PO Q6HR PRN #12 tab PRN Reason: Moderate Breakthrough Pain Sulfamethox-Tmp 800-160Mg [Bactrim DS 800-160 mg] 1 tab PO Q12HR #10 tab Continue Pregabalin [Lyrica] 100 mg PO HS Discharge Medication List Pregabalin [Lyrica] 100 mg PO HS 03/24/22 [History] HYDROcodone/APAP 5-325MG [Simpson 5-325] 1 each PO Q6HR PRN #12 tab 03/26/22 [Rx] Sulfamethox-Tmp 800-160Mg [Bactrim DS 800-160 mg] 1 tab PO Q12HR #10 tab 03/26/22 [Rx] Follow up Appointment(s)/Referral(s): Nonstaff,Physician [REFERRING] - 1-2 days Activity/Diet/Wound Care/Special Instructions: Diet: Clear liquid diet Follow up with your PCP within 1-2 days of discharge. Please take all medications as advised. Come back to the ED or call 911 for worsening F > 100.4F not relieved by Tylenol, intractable nausea and vomiting, worsening abdominal pain. Discharge Disposition: HOME SELF-CARE
== END 2022-03-26 19:41 | disposition home or self-care (01) | DRG 872 ==
LOC: EC 13:12 → 6NMEDSUR 17:46 → OBSVTOIN 03-26 08:13
PROVIDERS: ADMIT Internal Medicine; ATTEND Internal Medicine
DX: A41.51 Sepsis due to Escherichia coli [E. coli] (principal); N12 Tubulo-interstitial nephritis, not specified as acute or chronic; D64.9 Anemia, unspecified; D69.6 Thrombocytopenia, unspecified; E83.51 Hypocalcemia; G43.909 Migraine, unspecified, not intractable, without status migrainosus; E87.6 Hypokalemia; G89.29 Other chronic pain; J45.909 Unspecified asthma, uncomplicated; M54.9 Dorsalgia, unspecified; M19.90 Unspecified osteoarthritis, unspecified site; M41.9 Scoliosis, unspecified; M51.27 Other intervertebral disc displacement, lumbosacral region
CPT/HCPCS: 36415; 76770; 80048; 80053; 80306; 81001; 81025; 83605; 85025; 85027; 87040; 87077; 87086; 87186; 96361; 96374; 96375; 96376; 99285

== ENCOUNTER → 2022-11-13 | Outpatient (CLI) | payer OTHER ==
--- NOTE | 2022-11-13 15:59 | US ---
EXAMINATION TYPE: Transabdominal DATE OF EXAM: 11/13/2022 3:35 PM COMPARISON: NONE CLINICAL HISTORY: Z36.89 ENCOUNTER FOR OTHER SPECIFIED SCR. Confirm dates. EXAM PERFORMED: Transabdominal (TA) EXAM MEASUREMENTS: GESTATIONAL AGE / DATING Physician Established: Not yet established Dates by LMP: (9 weeks/5 days) EDC: 06/13/2023 Dates by First Scan: No previous this is first scan Dates by Current Scan for: (7 weeks/3 days) EDC: 06/29/2023 MATERNAL ANATOMY Uterus: 11.1 x 6.7 x 8.9 cm Right Ovary: 3.1 x 1.2 x 3.0 cm Left Ovary: 4.5 x 3.6 x 5.5 cm Cystic area 2.9 x 3.3 x 4.3 cm. Post CDS / Adnexa: wnl Presence of free fluid: no Presence of corpus luteal cyst: no Presence of subchorionic bleed: no GESTATION / SURVEY CRL: 1.17 cm (7 weeks/3 days) Yolk Sac (normal less than 6mm): 3 mm Heart Rate: 156 bpm Rhythm: Normal IUP: Viable IUP Single viable intrauterine gestation. IMPRESSION: 1. Single viable intrauterine gestation with estimated gestational age of 7 weeks 3 days and estimat ed due date of 06/29/2023. There is discrepancy with the estimated gestational age based on LMP. 2. Left ovarian cyst measuring up to 4.3 cm.
== END | disposition home or self-care (01) ==
LOC: RADUSWWP 15:14
PROVIDERS: ATTEND Obstetrics & Gynecology
DX: O34.81 Maternal care for other abnormalities of pelvic organs, first trimester (principal); N83.202 Unspecified ovarian cyst, left side; Z3A.01 Less than 8 weeks gestation of pregnancy
CPT/HCPCS: 76801

== ENCOUNTER → 2022-12-10 | Outpatient (CLI) | payer OTHER ==
[2022-12-10 23:07] LABS: Basophils # (A) 0.05 X 10*3/uL (0.00-0.10); Basophils % (A) 0.8 %; Eosinophils # (A) 0.06 X 10*3/uL (0.04-0.35); HCT 40.3 % (37.2-46.3); HGB 12.9 g/dL (12.0-15.0); Immature Grans, Automated 0.5 %; Lymphocytes # (A) 1.57 X 10*3/uL (0.90-5.00); Lymphocytes % (A) 25.4 %; MCV 93.7 fL (80.0-97.0); Mean Platelet Volume 12.3 fL (9.5-12.2); Monocytes # (A) 0.49 X 10*3/uL (0.20-1.00); Monocytes % (A) 7.9 %; NRBC Per 100 WBC 0 /100 WBCS (0.0-0.0); Neutrophils # (A) 3.99 X 10*3/uL (1.80-7.70); Neutrophils % (A) 64.4 %; Platelet Count 178 X 10*3/uL (140-440); WBC 6.19 X 10*3/uL (4.50-10.00)
== END | disposition home or self-care (01) ==
LOC: LABPAT 14:36
PROVIDERS: ATTEND Obstetrics & Gynecology
DX: Z01.812 Encounter for preprocedural laboratory examination (principal)
CPT/HCPCS: 85025

== ENCOUNTER 2022-12-11 06:01 | Day surgery (SDC) | payer OTHER ==
[2022-12-10 12:05] VITALS: BMI 17.7
--- NOTE | 2022-12-10 12:57 | P.HPOB ---
History of Present Illness H&P Date: 12/10/22 Chief Complaint: Missed , requesting D&C This patient is a pleasant 27 yr old female estimated gestational age 11 wks by dates, 8.5 weeks by ultrasound who presents for suction D&C due to missed . Patients history is such that she had an ultrasound on November 13 that showed a viable 7 week . She came to a routine OB visit on 12/04 and no cardiac activity was found. Ultrasound confirmed a non-viable 8.5 week . No bleeding or pain. I discussed options: expectant management vs. suction D&C. She contacted the office and requested a D&C. Review of Systems Genitourinary: Reports Menstruation: Reports amenorrhea Past Medical History Past Medical History: Asthma, Fibromyalgia, Osteoarthritis (OA) Additional Past Medical History / Comment(s): SCOLIOSIS, FREQUENT EAR INFECTIONS, DDD, HERNIATED DISCS, MIGRANES History of Any Multi-Drug Resistant Organisms: None Reported Past Surgical History: Adenoidectomy, Ear Surgery, Tonsillectomy Additional Past Surgical History / Comment(s): BMT Past Anesthesia/Blood Transfusion Reactions: No Reported Reaction Past Psychological History: No Psychological Hx Reported Smoking Status: Never smoker Past Alcohol Use History: None Reported Past Drug Use History: None Reported - Past Family History Mother Family Medical History: Cancer, Diabetes Mellitus, Hypertension Additional Family Medical History / Comment(s): BREAST, COLON, POSSIBLE UTERINE CANCER Medications and Allergies Home Medications Medication Instructions Recorded Confirmed Type No Known Home Medications 12/10/22 12/10/22 History Allergies Allergy/AdvReac Type Severity Reaction Status Date / Time No Known Allergies Allergy Verified 12/10/22 11:54 Exam Intake and Output 12/09/22 12/10/22 12/10/22 22:59 06:59 14:59 Other: Weight 54.431 kg - OBG Physical Exam Abdomen: bowel sounds normal, no diffuse tenderness, no bruit present, no guarding noted, no hepatomegaly, no splenomegaly, no mass Vulva: both: normal Vagina: normal moisture, no discharge Cervix: no lesion, no discharge Uterus: enlarged (8 weeks size) Results Blood type is O negative. Ultrasound on 12/04/2022 shows a non-viable 8.5 weeks intrauterine . Assessment and Plan Assessment: This is a pleasant 27 yr female with a missed , 8.5 weeks who is requesting suction D&C for treatment. Plan is suction D&C. I have discussed this surgery with her in detail including risks of the surgery: infection, bleeding, possible uterine perforation. All of her questions were answered and a written consent was obtained. Will need Rhogam post-procedure. (1) Missed Status: Acute Code(s): O02.1 - MISSED SNOMED Code(s): 62255736 (2) Rh negative status during Status: Acute Code(s): O26.899 - OTH RELATED CONDITIONS, UNSPECIFIED TRIMESTER; Z67.91 - UNSPECIFIED BLOOD TYPE, RH NEGATIVE SNOMED Code(s): 376024029
[~2022-12-11 06:01] MED LIST: DEXAMETHASONE SOD PHOSPHATE 4 MG/ML 1 ML VIAL IV ONE; LACTATED RINGERS 1,000 ML IV SCH; LIDOCAINE 1% (10MG/ML) FOR IV START INTRADERMA PRN; MIDAZOLAM 2 MG/2 ML VIAL IV PRN; ONDANSETRON 4 MG/2 ML VIAL IVP ONE; Pre Op ABX Message 1 EACH MISC MISCELLANE ONE
[2022-12-11] MEDS ORDERED: LACTATED RINGERS 1,000 ML IV ONE (06:15)
[2022-12-11] MEDS: LACTATED RINGERS 1,000 ML IV ONE (06:15)
[2022-12-11] MEDS ORDERED: PROPOFOL 10 MG/ML 20 ML VIAL IV ONE (06:48)
[2022-12-11] MEDS ORDERED: LIDOCAINE 2% INJ 20 MG/ML (2 ML VIAL) ONE (06:48)
[2022-12-11] MEDS ORDERED: MIDAZOLAM 2 MG/2 ML VIAL ONE (06:48)
[2022-12-11] MEDS ORDERED: KETOROLAC 15 MG/ML 1 ML VIAL ONE (06:48)
[2022-12-11] MEDS ORDERED: fentaNYL (PF) 50 MCG/ML 2 ML AMP ONE (06:48)
[2022-12-11] MEDS ORDERED: HYDROmorphone 0.5 MG/0.5 ML SYRINGE IVP PRN (07:00)
[2022-12-11] MEDS ORDERED: Rhogam IMMUNE GLOBULIN 1,500 UNIT/1 ML IM ONE (07:18)
--- NOTE | 2022-12-11 07:23 | P.OP ---
Date of Procedure: 12/11/22 Preoperative Diagnosis: Missed 8 and half weeks Postoperative Diagnosis: Same Procedure(s) Performed: Suction D&C Anesthesia: MAC Surgeon: Lauro Carmona Estimated Blood Loss (ml): 100 Urine output (ml): 20 Pathology: other (Uterine contents) Condition: stable Disposition: PACU Indications for Procedure: Please see dictated H&P for intimate details of this patient's admission. Brief summary this pleasant 27-year-old 7 para 5 female estimated gestational age 8-1/2 weeks with known missed . Patient is requesting suction D&C for treatment. Patient does understand the surgery and risks including risks of infection, bleeding, possible uterine perforation. All the patient's questions are answered and a written consent is obtained. Operative Findings: This patient had a large amount of contents and the uterus consistent with degenerated products of conception. Description of Procedure: This patient is taken to the operating room where she is laid in supine position. After the appropriate timeout, patient undergoes general mask anesthesia without incident. With an adequate level of anesthesia she's placed in dorsal lithotomy position. She has a vaginal perineal prep and drape. Examination under anesthesia shows a 9 week size uterus mid position. First drain the bladder for 20 mL of clear urine. A weighted speculum was placed in the posterior vagina. Anterior lip of the cervix is grabbed with an Allis clamp. Cervix is gently dilated to allow a 9 curved suction curette easily and the uterine cavity. Suction is applied and a large amount of tissue is removed after multiple passes. With this done a gentle but thorough 4 quadrant curettage is done for no further tissue. A final pass of the suction curet is done. There is minimal bleeding at this time. This point the procedure is ended. The Allis clamp and weighted speculum were removed. All counts correct 3. There are no complications. Patient is awakened from anesthesia and taken recovery room satisfactory condition. She will be given RhoGAM due to Rh- status.
[2022-12-11 07:27] VITALS: TEMP 97.8
[2022-12-11 08:41] VITALS: BP 110/68; PULSE 78; RESP 18
== END 2022-12-11 09:05 | disposition home or self-care (01) ==
LOC: OR 06:01
PROVIDERS: ATTEND Obstetrics & Gynecology
DX: O02.1 Missed abortion (principal); J45.909 Unspecified asthma, uncomplicated; M79.7 Fibromyalgia; M19.90 Unspecified osteoarthritis, unspecified site; M41.9 Scoliosis, unspecified; G43.909 Migraine, unspecified, not intractable, without status migrainosus; Z98.890 Other specified postprocedural states; Z94.81 Bone marrow transplant status; Z83.3 Family history of diabetes mellitus; Z82.49 Family history of ischemic heart disease and other diseases of the circulatory system; Z80.0 Family history of malignant neoplasm of digestive organs; Z80.3 Family history of malignant neoplasm of breast
CPT/HCPCS: 59820; 86900; 86901; 86850; J2790; J2250; J1100; J2405; J3010; J1885; J2704; J1170; J2001; 88305

== ENCOUNTER 2022-12-20 00:26 | Emergency (ER) | payer OTHER ==
[2022-12-20 00:36] VITALS: BP 105/97; PULSE 123; RESP 18; TEMP 98.8
[2022-12-20] MEDS ORDERED: SODIUM CHLORIDE 0.9% 500 ML 500 ML IV STA (00:47)
[2022-12-20] MEDS ORDERED: ONDANSETRON 4 MG/2 ML VIAL IVP STA (00:47)
[2022-12-20] MEDS ORDERED: SODIUM CHLORIDE 0.9% 1,000 ML IV STA (00:47)
[2022-12-20] MEDS ORDERED: HYDROmorphone 0.5 MG/0.5 ML SYRINGE IVP STA (00:48)
--- NOTE | 2022-12-20 01:30 | ED ---
Abdominal Pain HPI - General Chief Complaint: Abdominal Pain Stated Complaint: Pelvic pain, abd pain Time Seen by Provider: 12/20/22 00:36 Source: patient, RN notes reviewed, old records reviewed Mode of arrival: ambulatory Limitations: no limitations - History of Present Illness Initial Comments: 27-year-old female presents emergency Department chief complaint of abdominal pain, flank pain, vaginal bleeding. Patient states that she had a D&C for misc arriage by Dr. Carmona 9 days ago. Patient states that she's been having some bleeding have a follow-up appointment yesterday which was fine. She states that she recently developed increasing bleeding and right flank pain. Patient has no history kidney stones she does have slight nausea, vomiting diarrhea constipation - Related Data Previous Rx's Medication Instructions Recorded Ibuprofen [Motrin] 600 mg PO Q6HR PRN #30 tab 12/11/22 Cephalexin [Keflex] 500 mg PO Q8HR #21 cap 12/20/22 Allergies Allergy/AdvReac Type Severity Reaction Status Date / Time No Known Allergies Allergy Verified 12/20/22 00:33 Review of Systems ROS Statement: Those systems with pertinent positive or pertinent negative responses have been documented in the HPI. ROS Other: All systems not noted in ROS Statement are negative. Past Medical History Past Medical History: Asthma, Fibromyalgia, Osteoarthritis (OA) Additional Past Medical History / Comment(s): SCOLIOSIS, FREQUENT EAR INFECTIONS, DDD, HERNIATED DISCS, MIGRANES History of Any Multi-Drug Resistant Organisms: None Reported Past Surgical History: Adenoidectomy, Ear Surgery, Tonsillectomy Additional Past Surgical History / Comment(s): BMT, D&C Past Anesthesia/Blood Transfusion Reactions: No Reported Reaction Past Psychological History: No Psychological Hx Reported Smoking Status: Never smoker Past Alcohol Use History: None Reported Past Drug Use History: None Reported - Past Family History Mother Family Medical History: Cancer, Diabetes Mellitus, Hypertension Additional Family Medical History / Comment(s): BREAST, COLON, POSSIBLE UTERINE CANCER General Exam Limitations: no limitations General appearance: alert, in no apparent distress Head exam: Present: atraumatic, normocephalic, normal inspection Eye exam: Present: normal appearance, PERRL, EOMI. Absent: scleral icterus, conjunctival injection, periorbital swelling ENT exam: Present: normal exam, normal oropharynx, mucous membranes moist Neck exam: Present: normal inspection, full ROM. Absent: tenderness, meningism us, lymphadenopathy Respiratory exam: Present: normal lung sounds bilaterally. Absent: respiratory distress, wheezes, rales, rhonchi, stridor Cardiovascular Exam: Present: normal rhythm, tachycardia, normal heart sounds. Absent: systolic murmur, diastolic murmur, rubs, gallop, clicks GI/Abdominal exam: Present: soft, tenderness, normal bowel sounds. Absent: distended, guarding, rebound, rigid Back exam: Present: CVA tenderness (R). Absent: CVA tenderness (L) Neurological exam: Present: alert Skin exam: Present: warm, dry, intact, normal color. Absent: rash Course Vital Signs 12/20/22 00:33 Temperature 98.8 F Pulse Rate 123 H Respiratory 18 Rate Blood Pressure 105/97 O2 Sat by Pulse 98 Oximetry Medical Decision Making - Medical Decision Making Was pt. sent in by a medical professional or institution (, PA, CONDUCTOR/BRAKEMAN, urgent care, hospital, or skilled nursing...) When possible be specific @ -No Did you speak to anyone other than the patient for history (EMS, parent, family, police, friend...)? What history was obtained from this source @ -No Did you review nursing and triage notes (agree or disagree)? Why? @ -I reviewed and agree with nursing and triage notes Were old charts reviewed (outside hosp., previous admission, EMS record, old EKG, old radiological studies, urgent care reports/EKG's, skilled nursing records)? Report findings @ -I did review her recent procedure no for D&C Differential Diagnosis (chest pain, altered mental status, abdominal pain women, abdominal pain men, vaginal bleeding, weakness, fever, dyspnea, syncope, headache, dizziness, GI bleed, back pain, seizure, CVA, palpatations, mental health)? @ -Flank pain, kidney stones, pyelonephritis, UTI, postsurgical complication, this list is nonspecific EKG interpreted by me (3pts min.). @ -None X-rays interpreted by me (1pt min.). @ -None done CT interpreted by me (1pt min.). @ -CT shows borderline hepatomegaly, splenomegaly U/S interpreted by me (1pt. min.). @ -Ultrasound shows no significant findings of the uterus What testing was considered but not performed or refused? (CT, X-rays, U/S, labs)? Why? @ -None What meds were considered but not given or refused? Why? @ -None Did you discuss the management of the patient with other professionals (professionals i.e. , PA, CONDUCTOR/BRAKEMAN, lab, RT, psych nurse, social security specialist, mechanical field engineer, teacher, field artillery officer, employment evaluator/case manager)? Give summary @ -No Was smoking cessation discussed for >3mins.? @ -No Was critical care preformed (if so, how long)? @ -No Were there social determinants of health that impacted care today? How? (Homelessness, low income, unemployed, alcoholism, drug addiction, transportation, low edu. Level, literacy, decrease access to med. care, [facility], rehab)? @ -No Was there de-escalation of care discussed even if they declined (Discuss DNR or withdrawal of care, Hospice)? DNR status @ -No What co-morbidities impacted this encounter? (DM, HTN, Smoking, COPD, CAD, Cancer, CVA, ARF, Chemo, Hep., AIDS, mental health diagnosis, sleep apnea, morbid obesity)? @ -None Was patient admitted / discharged? Hospital course, mention meds given and route, prescriptions, significant lab abnormalities, going to OR and other pertinent info. @ -Discharge. Patient has right flank pain, mild lower abdominal cramping related to recent D&C no post D&C complications noted patient does have flank pain with recurrence history of UTI and pyelonephritis is not stiff, bacterial patient was placed on antibiotics. Undiagnosed new problem with uncertain prognosis? @ -No Drug Therapy requiring intensive monitoring for toxicity (Heparin, Nitro, Insulin, Cardizem)? @ -No Were any procedures done? @ -No Diagnosis/symptom? @ -Acute flank pain Acute, or Chronic, or Acute on Chronic? @ -Acute Uncomplicated (without systemic symptoms) or Complicated (systemic symptoms)? @ -Uncomplicated Side effects of treatment? @ -No Exacerbation, Progression, or Severe Exacerbation? @ -No Poses a threat to life or bodily function? How? (Chest pain, USA, OR, pneumonia, PE, COPD, DKA, ARF, appy, cholecystitis, CVA, Diverticulitis, Homicidal, Suicidal, threat to staff... and all critical care pts) @ -No - Lab Data Result diagrams: 12/20/22 01:18 12/20/22 01:18 Lab Results 12/20/22 12/20/22 12/20/22 Range/Units 01:18 01:18 01:18 WBC 12.4 H (3.8-10.6) k/uL RBC 4.46 (3.80-5.40) m/uL Hgb 13.1 (11.4-16.0) gm/dL Hct 39.8 (34.0-46.0) % MCV 89.3 (80.0-100.0) fL MCH 29.3 (25.0-35.0) pg MCHC 32.8 (31.0-37.0) g/dL RDW 12.0 (11.5-15.5) % Plt Count 181 (150-450) k/uL MPV 9.0 Neutrophils % 93 % Lymphocytes % 3 % Monocytes % 3 % Eosinophils % 1 % Basophils % 0 % Neutrophils # 11.5 H (1.3-7.7) k/uL Lymphocytes # 0.3 L (1.0-4.8) k/uL Monocytes # 0.4 (0-1.0) k/uL Eosinophils # 0.1 (0-0.7) k/uL Basophils # 0.0 (0-0.2) k/uL Sodium 141 (137-145) mmol/L Potassium 3.7 (3.5-5.1) mmol/L Chloride 107 (98-107) mmol/L Carbon Dioxide 26 (22-30) mmol/L Anion Gap 8 mmol/L BUN 18 H (7-17) mg/dL Creatinine 0.77 (0.52-1.04) mg/dL Est GFR (CKD-EPI)AfAm >90 (>60 ml/min/1.73 sqM) Est GFR (CKD-EPI)NonAf >90 (>60 ml/min/1.73 sqM) Glucose 125 H (74-99) mg/dL Plasma Lactic Acid [place] (0.7-2.0) mmol/L Calcium 8.7 (8.4-10.2) mg/dL Total Bilirubin 0.9 (0.2-1.3) mg/dL AST 24 (14-36) U/L ALT 27 (4-34) U/L Alkaline Phosphatase 71 (38-126) U/L Total Protein 7.0 (6.3-8.2) g/dL Albumin 4.1 (3.5-5.0) g/dL Amylase 62 (30-110) U/L Lipase 70 (23-300) U/L Urine Color Yellow Urine Appearance Clear (Clear) Urine pH 5.5 (5.0-8.0) Ur Specific [place] 1.040 H (1.001-1.035) Urine Protein Trace H (Negative) Urine Glucose (UA) Negative (Negative) Urine Ketones 1+ H (Negative) Urine Blood Large H (Negative) Urine Nitrite Negative (Negative) Urine Bilirubin Negative (Negative) Urine Urobilinogen <2.0 (<2.0) mg/dL Ur Leukocyte Esterase Negative (Negative) Urine RBC 73 H (0-5) /hpf Urine WBC 3 (0-5) /hpf Ur Squamous Epith Cells 1 (0-4) /hpf Urine Mucus Few H (None) /hpf 12/20/22 Range/Units 01:18 WBC (3.8-10.6) k/uL RBC (3.80-5.40) m/uL Hgb (11.4-16.0) gm/dL Hct (34.0-46.0) % MCV (80.0-100.0) fL MCH (25.0-35.0) pg MCHC (31.0-37.0) g/dL RDW (11.5-15.5) % Plt Count (150-450) k/uL MPV Neutrophils % % Lymphocytes % % Monocytes % % Eosinophils % % Basophils % % Neutrophils # (1.3-7.7) k/uL Lymphocytes # (1.0-4.8) k/uL Monocytes # (0-1.0) k/uL Eosinophils # (0-0.7) k/uL Basophils # (0-0.2) k/uL Sodium (137-145) mmol/L Potassium (3.5-5.1) mmol/L Chloride (98-107) mmol/L Carbon Dioxide (22-30) mmol/L Anion Gap mmol/L BUN (7-17) mg/dL Creatinine (0.52-1.04) mg/dL Est GFR (CKD-EPI)AfAm (>60 ml/min/1.73 sqM) Est GFR (CKD-EPI)NonAf (>60 ml/min/1.73 sqM) Glucose (74-99) mg/dL Plasma Lactic Acid [place] 0.8 (0.7-2.0) mmol/L Calcium (8.4-10.2) mg/dL Total Bilirubin (0.2-1.3) mg/dL AST (14-36) U/L ALT (4-34) U/L Alkaline Phosphatase (38-126) U/L Total Protein (6.3-8.2) g/dL Albumin (3.5-5.0) g/dL Amylase (30-110) U/L Lipase (23-300) U/L Urine Color Urine Appearance (Clear) Urine pH (5.0-8.0) Ur Specific [place] (1.001-1.035) Urine Protein (Negative) Urine Glucose (UA) (Negative) Urine Ketones (Negative) Urine Blood (Negative) Urine Nitrite (Negative) Urine Bilirubin (Negative) Urine Urobilinogen (<2.0) mg/dL Ur Leukocyte Esterase (Negative) Urine RBC (0-5) /hpf Urine WBC (0-5) /hpf Ur Squamous Epith Cells (0-4) /hpf Urine Mucus (None) /hpf Disposition Clinical Impression: Status post D&C, Flank pain Disposition: HOME SELF-CARE Condition: Stable Instructions (If sedation given, give patient instructions): Flank Pain (ED) Additional Instructions: Please return to the Emergency Department if symptoms worsen or any other concerns. Prescriptions: Cephalexin [Keflex] 500 mg PO Q8HR #21 cap Is patient prescribed a controlled substance at d/c from ED?: No Referrals: Michaela Banks [Primary Care Provider] - 1-2 days Time of Disposition: 04:00
[2022-12-20 01:46] LABS: Basophils % (A) 0 %; Eosinophils # (A) 0.1 k/uL (0-0.7); Eosinophils % (A) 1 %; HCT 39.8 % (34.0-46.0); HGB 13.1 gm/dL (11.4-16.0); Lymphocytes # (A) 0.3 k/uL (1.0-4.8); Lymphocytes % (A) 3 %; MCH 29.3 pg (25.0-35.0); MCHC 32.8 g/dL (31.0-37.0); MCV 89.3 fL (80.0-100.0); Monocytes # (A) 0.4 k/uL (0-1.0); Monocytes % (A) 3 %; Neutrophils # (A) 11.5 k/uL (1.3-7.7); Neutrophils % (A) 93 %; Platelet Count 181 k/uL (150-450); RBC 4.46 m/uL (3.80-5.40); WBC 12.4 k/uL (3.8-10.6)
[2022-12-20 01:54] LABS: ALT 27 U/L (4-34); AST 24 U/L (14-36); African American GFR (CKD) >90 (>60 ml/min/1.73 sqM); Albumin 4.1 g/dL (3.5-5.0); Alkaline Phosphatase 71 U/L (38-126); Amylase 62 U/L (30-110); Anion Gap 8 mmol/L; Blood Urea Nitrogen 18 mg/dL (7-17); Calcium 8.7 mg/dL (8.4-10.2); Carbon Dioxide 26 mmol/L (22-30); Chloride 107 mmol/L (98-107); Glucose 125 mg/dL (74-99); Lipase 70 U/L (23-300); Non-African American GFR(CKD) >90 (>60 ml/min/1.73 sqM); Potassium 3.7 mmol/L (3.5-5.1); Sodium 141 mmol/L (137-145); Total Bilirubin 0.9 mg/dL (0.2-1.3)
--- NOTE | 2022-12-20 02:01 | US ---
EXAMINATION TYPE: US transvaginal DATE OF EXAM: 12/20/2022 COMPARISON: NONE CLINICAL HISTORY: pain s/p D C. pelvic pain and vaginal bleeding. Pt states she had a D&C done 3. TECHNIQUE: Transvaginal (TV). Date of LMP: Unknown EXAM MEASUREMENTS: Uterus: 10.3 x 8.1 x 5.1 cm Endometrial Stripe: 0.8 cm Right Ovary: Not vis Left Ovary: Not vis 1. Uterus: Anteverted wnl 2. Endometrium: wnl 3. Right Ovary: Obscured by overlying bowel gas 4. Left Ovary: Obscured by overlying bowel gas 5. Bilateral Adnexa: Peristalsing bowel visualized 6. Posterior cul-de-sac: wnl IMPRESSION: Normal uterus and endometrium. Ovaries not seen. No pelvic mass. No free fluid in the pelvis.
--- NOTE | 2022-12-20 02:59 | CT ---
EXAMINATION TYPE: CT abdomen pelvis w con DATE OF EXAM: 12/20/2022 COMPARISON: 04/12/2015 HISTORY: Abd pain CT DLP: 497.3 mGycm Automated exposure control for dose reduction was used. CONTRAST: Performed with IV Contrast, patient injected with 100 mL of Isovue 300. Images obtained from the diaphragm to the floor of the pelvis with IV contrast. The lung bases are clear. No pleural effusion. Heart size is normal. No pericardial effusion. Liver spleen stomach pancreas and gallbladder appear intact. The bile duct are not dilated. There is no adrenal mass. Kidneys have normal size. No hydronephrosis. Ureters are not dilated. No retroperito glenn adenopathy. Delayed images show normal renal excretion bladder distends smoothly. Uterus is bulk y and anteverted. Uterus measures 10.5 x 6.5 cm. The lumbar spine is intact. Bony pelvis is intact. The hip joints are intact. No pelvic mass. There is no mesenteric edema. No ascites. Appendix is medial and appears normal. IMPRESSION: Enlarged uterus. No evidence of a uterine mass. No adverse change compared to old exam. Normal append ix. Enlarged liver. Borderline splenomegaly. Spleen measures 13 cm and the liver measures 20.5 cm.
[2022-12-20 03:47] LABS: Appearance,Urine Clear (Clear); Bilirubin,Urine Negative (Negative); Blood,Urine Large (Negative); Color,Urine Yellow; Glucose,Urine (UA) Negative (Negative); Ketones,Urine 1+ (Negative); Leukocyte Esterase,Urine Negative (Negative); Mucus,Urine Few /hpf; Nitrite,Urine Negative (Negative); PH, Urine 5.5 (5.0-8.0); Protein,Urine Trace (Negative); RBC,Urine 73 /hpf (0-5); Squamous Epithelial Cell,Urine 1 /hpf (0-4); Urobilinogen,Urine <2.0 mg/dL (<2.0); WBC,Urine 3 /hpf (0-5)
[2022-12-20] MEDS ORDERED: CEPHALEXIN 500MG STARTER PACK 4 CAP BTL PO STA (03:54)
[2022-12-20] MEDS ORDERED: ACET/COD 300 MG/30 MG STARTER PACK 6 TAB BTL PO STA (03:54)
[2022-12-20] MEDS ORDERED: KETOROLAC 15 MG/ML 1 ML VIAL IVP STA (03:54)
== END 2022-12-20 04:21 | disposition home or self-care (01) ==
LOC: EC 00:26
DX: O03.6 Delayed or excessive hemorrhage following complete or unspecified spontaneous abortion (principal); J45.909 Unspecified asthma, uncomplicated
CPT/HCPCS: 36415; 80053; 82150; 83605; 83690; 85025; 81001; 76830; 74177; 99285; 96374; 96375 ×2; 96361; J2405; J1885; J1170; Q9967

== ENCOUNTER 2023-09-22 19:08 | Inpatient (IN) | payer OTHER ==
[2023-09-22 20:18] LABS: Basophils % (A) 0 %; Eosinophils % (A) 1 %; HCT 41.2 % (34.0-46.0); HGB 14.5 gm/dL (11.4-16.0); Lymphocytes % (A) 34 %; MCH 32.3 pg (25.0-35.0); MCHC 35.1 g/dL (31.0-37.0); MCV 91.9 fL (80.0-100.0); Mean Platelet Volume 10.5; Monocytes # (A) 0.2 k/uL (0-1.0); Monocytes % (A) 7 %; Neutrophils # (A) 1.7 k/uL (1.3-7.7); Neutrophils % (A) 56 %; Platelet Count 124 k/uL (150-450); RBC 4.49 m/uL (3.80-5.40); RDW 12.6 % (11.5-15.5); WBC 3.1 k/uL (3.8-10.6)
[2023-09-22 20:22] LABS: Appearance,Urine Clear (Clear); Bilirubin,Urine 1+ (Negative); Blood,Urine Trace (Negative); Color,Urine Yellow; Glucose,Urine (UA) Negative (Negative); Ketones,Urine Negative (Negative); Leukocyte Esterase,Urine Negative (Negative); Mucus,Urine Occasional /hpf; Nitrite,Urine Negative (Negative); Protein,Urine 1+ (Negative); RBC,Urine 1 /hpf (0-5); Squamous Epithelial Cell,Urine 5 /hpf (0-4); WBC,Urine 3 /hpf (0-5)
--- NOTE | 2023-09-22 20:41 | ED ---
Abdominal Pain HPI - History of Present Illness MD Complaint: other Onset/Timin -: days(s) Location: bilateral flank Radiation: none Migration to: no migration Severity: moderate Quality: aching Consistency: constant Improves With: nothing Worsens With: nothing Associated Symptoms: denies other symptoms <Tigre Mullins - Last Filed: 09/22/23 23:40> - General Source: patient, RN notes reviewed Mode of arrival: ambulatory <Yris Garg - Last Filed: 09/23/23 02:04> - General Chief Complaint: Abdominal Pain Stated Complaint: Back Pain Time Seen by Provider: 09/22/23 20:40 - History of Present Illness Initial Comments: Patient is a 28-year-old woman with back pain going on 2 days now. She states it's bilateral, slightly worse on the right. She indicates low thoracic and lumbar areas. Denies trauma. She states that last time she had pain like this she was diagnosed with kidney infection. Patient has not noted frequency or dysuria. No fever or chills. No radiation to abdomen. (Tigre Mullins) Patient is 28-year-old female who presents the emergency department for back pain and nausea. (Yris Garg) - Related Data Previous Rx's Medication Instructions Recorded Ibuprofen [Motrin] 600 mg PO Q6HR PRN #30 tab 12/11/22 Cephalexin [Keflex] 500 mg PO Q8HR #21 cap 12/20/22 Allergies Allergy/AdvReac Type Severity Reaction Status Date / Time No Known Allergies Allergy Verified 09/22/23 19:49 Review of Systems ROS Other: All systems not noted in ROS Statement are negative. Constitutional: Denies: fever, chills Respiratory: Denies: cough, dyspnea Cardiovascular: Denies: chest pain, palpitations Gastrointestinal: Denies: abdominal pain, nausea, vomiting Genitourinary: Denies: dysuria, frequency, hematuria Musculoskeletal: Reports: back pain Skin: Denies: rash Neurological: Denies: headache, weakness, numbness, paresthesias <Tigre Mullins - Last Filed: 09/22/23 23:40> ROS Other: All systems not noted in ROS Statement are negative. <Yris Garg - Last Filed: 09/23/23 02:04> ROS Statement: Those systems with pertinent positive or pertinent negative responses have been documented in the HPI. Past Medical History Past Medical History: Asthma, Fibromyalgia, Osteoarthritis (OA) Additional Past Medical History / Comment(s): SCOLIOSIS, FREQUENT EAR IN FECTIONS, DDD, HERNIATED DISCS, MIGRANES History of Any Multi-Drug Resistant Organisms: None Reported Past Surgical History: Adenoidectomy, Ear Surgery, Tonsillectomy Additional Past Surgical History / Comment(s): BMT, D&C Past Anesthesia/Blood Transfusion Reactions: No Reported Reaction Past Psychological History: No Psychological Hx Reported Smoking Status: Never smoker Past Alcohol Use History: None Reported Past Drug Use History: None Reported - Past Family History Mother Family Medical History: Cancer, Diabetes Mellitus, Hypertension Additional Family Medical History / Comment(s): BREAST, COLON, POSSIBLE UTERINE CANCER <Yris Garg - Last Filed: 09/23/23 02:04> General Exam General appearance: alert, in no apparent distress Head exam: Present: atraumatic, normocephalic Eye exam: Present: normal appearance. Absent: scleral icterus, conjunctival injection ENT exam: Present: normal oropharynx Neck exam: Present: normal inspection Respiratory exam: Present: normal lung sounds bilaterally. Absent: respiratory distress, wheezes, rales, rhonchi, stridor Cardiovascular Exam: Present: regular rate, normal rhythm, normal heart sounds. Absent: systolic murmur, diastolic murmur, rubs, gallop GI/Abdominal exam: Present: soft. Absent: distended, tenderness, guarding, rebound, rigid, mass, pulsatile mass Extremities exam: Present: normal inspection, normal capillary refill. Absent: pedal edema, calf tenderness Back exam: Present: normal inspection, paraspinal tenderness (Bilateral, right greater than left). Absent: CVA tenderness (R), CVA tenderness (L) Neurological exam: Present: alert Skin exam: Present: warm, dry, intact, normal color. Absent: rash <Tigre Mullins - Last Filed: 09/22/23 23:40> <Yris Garg - Last Filed: 09/23/23 02:04> - General Exam Comments Initial Comments: Visual Physical Exam Vital signs reviewed General: Well-appearing, nontoxic, no acute distress. Head: Normocephalic, atraumatic Eyes: PERRLA, EOMI ENT: Airway patent Chest: Nonlabored breathing Skin: No visual rash, normal skin tone Neuro: Alert and oriented 3 Musculoskeletal: No gross abnormalities (Yris Garg) Course Vital Signs 09/22/23 09/22/23 09/22/23 19:44 21:50 21:51 Temperature 98.9 F Pulse Rate 84 82 Respiratory 18 Rate Blood Pressure 109/77 121/90 O2 Sat by Pulse 100 100 Oximetry 09/23/23 00:33 Temperature Pulse Rate 77 Respiratory 18 Rate Blood Pressure 119/89 O2 Sat by Pulse 99 Oximetry Medical Decision Making - Lab Data Result diagrams: 09/22/23 20:02 09/22/23 20:02 <Tigre Mullins - Last Filed: 09/22/23 23:40> - Lab Data Result diagrams: 09/22/23 20:02 09/22/23 20:02 <Yris Garg - Last Filed: 09/23/23 02:04> - Medical Decision Making This patient is 28-year-old woman with low back pain who is found to have elevated AST ALT on the lab testing. The patient states that she does take 6 extra strength Tylenol nearly every day for pains. She states that she doesn't exceed this dose. Denies combination medications. I discussed with her that the AST and ALT are elevated, will give out dose of acetylcysteine and will have close follow-up to ensure that the levels are decreasing. The patient instructed not to take any further Tylenol or any combination products. Recommendation is 12 hours of an acetylcysteine as long as AST ALT and Tylenol levels not rising. (Tigre Mullins) I performed the QuickNote portion of this chart - Yris Garg PA-C (Yris Garg) - Lab Data Lab Results 09/22/23 09/22/23 09/22/23 Range/Units 20:02 20:02 20:02 WBC 3.1 L (3.8-10.6) k/uL RBC 4.49 (3.80-5.40) m/uL Hgb 14.5 (11.4-16.0) gm/dL Hct 41.2 (34.0-46.0) % MCV 91.9 (80.0-100.0) fL MCH 32.3 (25.0-35.0) pg MCHC 35.1 (31.0-37.0) g/dL RDW 12.6 (11.5-15.5) % Plt Count 124 L (150-450) k/uL MPV 10.5 Neutrophils % 56 % Lymphocytes % 34 % Monocytes % 7 % Eosinophils % 1 % Basophils % 0 % Neutrophils # 1.7 (1.3-7.7) k/uL Lymphocytes # 1.0 (1.0-4.8) k/uL Monocytes # 0.2 (0-1.0) k/uL Eosinophils # 0.0 (0-0.7) k/uL Basophils # 0.0 (0-0.2) k/uL Sodium 140 (137-145) mmol/L Potassium 4.1 (3.5-5.1) mmol/L Chloride 105 (98-107) mmol/L Carbon Dioxide 26 (22-30) mmol/L Anion Gap 9 mmol/L BUN 14 (7-17) mg/dL Creatinine 0.68 (0.52-1.04) mg/dL Est GFR (CKD-EPI)AfAm >90 (>60 ml/min/1.73 sqM) Est GFR (CKD-EPI)NonAf >90 (>60 ml/min/1.73 sqM) Glucose 92 (74-99) mg/dL Calcium 9.1 (8.4-10.2) mg/dL Total Bilirubin 0.6 (0.2-1.3) mg/dL AST 155 H (14-36) U/L ALT 177 H (4-34) U/L Alkaline Phosphatase 68 (38-126) U/L Total Protein 7.4 (6.3-8.2) g/dL Albumin 4.4 (3.5-5.0) g/dL Urine Color Yellow Urine Appearance Clear (Clear) Urine pH 6.0 (5.0-8.0) Ur Specific [place] 1.050 H (1.001-1.035) Urine Protein 1+ H (Negative) Urine Glucose (UA) Negative (Negative) Urine Ketones Negative (Negative) Urine Blood Trace H (Negative) Urine Nitrite Negative (Negative) Urine Bilirubin 1+ H (Negative) Urine Urobilinogen 6.0 (<2.0) mg/dL Ur Leukocyte Esterase Negative (Negative) Urine RBC 1 (0-5) /hpf Urine WBC 3 (0-5) /hpf Ur Squamous Epith Cells 5 H (0-4) /hpf Urine Mucus Occasional H (None) /hpf Urine HCG, Qual (Not Detectd) Acetaminophen ug/mL 09/22/23 09/22/23 Range/Units 20:02 21:39 WBC (3.8-10.6) k/uL RBC (3.80-5.40) m/uL Hgb (11.4-16.0) gm/dL Hct (34.0-46.0) % MCV (80.0-100.0) fL MCH (25.0-35.0) pg MCHC (31.0-37.0) g/dL RDW (11.5-15.5) % Plt Count (150-450) k/uL MPV Neutrophils % % Lymphocytes % % Monocytes % % Eosinophils % % Basophils % % Neutrophils # (1.3-7.7) k/uL Lymphocytes # (1.0-4.8) k/uL Monocytes # (0-1.0) k/uL Eosinophils # (0-0.7) k/uL Basophils # (0-0.2) k/uL Sodium (137-145) mmol/L Potassium (3.5-5.1) mmol/L Chloride (98-107) mmol/L Carbon Dioxide (22-30) mmol/L Anion Gap mmol/L BUN (7-17) mg/dL Creatinine (0.52-1.04) mg/dL Est GFR (CKD-EPI)AfAm (>60 ml/min/1.73 sqM) Est GFR (CKD-EPI)NonAf (>60 ml/min/1.73 sqM) Glucose (74-99) mg/dL Calcium (8.4-10.2) mg/dL Total Bilirubin (0.2-1.3) mg/dL AST (14-36) U/L ALT (4-34) U/L Alkaline Phosphatase (38-126) U/L Total Protein (6.3-8.2) g/dL Albumin (3.5-5.0) g/dL Urine Color Urine Appearance (Clear) Urine pH (5.0-8.0) Ur Specific [place] (1.001-1.035) Urine Protein (Negative) Urine Glucose (UA) (Negative) Urine Ketones (Negative) Urine Blood (Negative) Urine Nitrite (Negative) Urine Bilirubin (Negative) Urine Urobilinogen (<2.0) mg/dL Ur Leukocyte Esterase (Negative) Urine RBC (0-5) /hpf Urine WBC (0-5) /hpf Ur Squamous Epith Cells (0-4) /hpf Urine Mucus (None) /hpf Urine HCG, Qual Not Detected (Not Detectd) Acetaminophen 32.2 ug/mL Disposition Is patient prescribed a controlled substance at d/c from ED?: No <Tigre Mullins - Last Filed: 09/22/23 23:40> <Yris Garg - Last Filed: 09/23/23 02:04> Clinical Impression: Hepatitis, Tylenol toxicity Disposition: ADMITTED IP TO THIS HOSP Condition: Fair
[2023-09-22 20:47] LABS: ALT 177 U/L (4-34); AST 155 U/L (14-36); African American GFR (CKD) >90 (>60 ml/min/1.73 sqM); Albumin 4.4 g/dL (3.5-5.0); Alkaline Phosphatase 68 U/L (38-126); Anion Gap 9 mmol/L; Blood Urea Nitrogen 14 mg/dL (7-17); Calcium 9.1 mg/dL (8.4-10.2); Carbon Dioxide 26 mmol/L (22-30); Chloride 105 mmol/L (98-107); Glucose 92 mg/dL (74-99); Non-African American GFR(CKD) >90 (>60 ml/min/1.73 sqM); Potassium 4.1 mmol/L (3.5-5.1); Sodium 140 mmol/L (137-145); Total Bilirubin 0.6 mg/dL (0.2-1.3); Total Protein 7.4 g/dL (6.3-8.2)
[2023-09-22] MEDS ORDERED: KETOROLAC 15 MG/ML 1 ML VIAL IVP STA (21:24)
[2023-09-22] MEDS ORDERED: SODIUM CHLORIDE 0.9% 500 ML 500 ML IV STA (21:25)
[2023-09-22] MEDS ORDERED: ACETYLCYSTEINE 6,000 MG/30 ML VIAL PO ONE (22:09)
[2023-09-22] MEDS ORDERED: NALOXONE 0.4 MG/ML 1 ML VIAL IV PRN (22:28)
[2023-09-22] MEDS ORDERED: MAG HYDROX/AL HYDROX/SIMETH 30 ML CUP PO PRN (22:28)
[2023-09-23] MEDS ORDERED: KETOROLAC 15 MG/ML 1 ML VIAL IVP SCH (00:30)
[2023-09-23] MEDS: ONDANSETRON 4 MG/2 ML VIAL IVP PRN ×2 (00:36→08:02)
[2023-09-23] MEDS ORDERED: ACETYLCYSTEINE 6,000 MG/30 ML VIAL PO SCH (02:15)
[2023-09-23] MEDS: ACETYLCYSTEINE 6,000 MG/30 ML VIAL PO SCH ×3 (03:18→11:51)
[2023-09-23 06:14] LABS: HCT 34.3 % (34.0-46.0); HGB 11.8 gm/dL (11.4-16.0); MCH 31.3 pg (25.0-35.0); MCHC 34.5 g/dL (31.0-37.0); MCV 90.9 fL (80.0-100.0); Platelet Count 104 k/uL (150-450); RBC 3.77 m/uL (3.80-5.40); RDW 12.8 % (11.5-15.5); WBC 3.4 k/uL (3.8-10.6)
[2023-09-23 06:42] LABS: ALT 144 U/L (4-34); AST 84 U/L (14-36); Acetaminophen <10.0 ug/mL; African American GFR (CKD) >90 (>60 ml/min/1.73 sqM); Albumin 3.6 g/dL (3.5-5.0); Alkaline Phosphatase 50 U/L (38-126); Anion Gap 10 mmol/L; Blood Urea Nitrogen 14 mg/dL (7-17); Calcium 8.4 mg/dL (8.4-10.2); Carbon Dioxide 24 mmol/L (22-30); Chloride 106 mmol/L (98-107); Glucose 95 mg/dL (74-99); Non-African American GFR(CKD) >90 (>60 ml/min/1.73 sqM); Potassium 3.6 mmol/L (3.5-5.1); Sodium 140 mmol/L (137-145); Total Bilirubin 0.5 mg/dL (0.2-1.3); Total Protein 6.5 g/dL (6.3-8.2)
[2023-09-23] MEDS: FAMOTIDINE 20 MG TAB PO SCH ×2 (08:02→21:48)
[2023-09-23] MEDS: KETOROLAC 15 MG/ML 1 ML VIAL IVP PRN ×2 (08:02→21:54)
[2023-09-23 10:04] LABS: Hepatitis A Antibody IgM Nonreactive; Hepatitis B Core IgM Nonreactive; Hepatitis B Surface Antigen Nonreactive; Hepatitis C IgG Antibody Nonreactive
--- NOTE | 2023-09-23 11:18 | P.HPIM ---
History of Present Illness H&P Date: 09/23/23 This is a pleasant 28-year-old female who presented to the emergency department with bilateral flank pain. Patient follows with Dr. Banks in the outpatient setting with a past medical history of asthma, fibromyalgia, osteoarthritis, scoliosis with degenerative disc disease and history of migraines. Patient reports she follows at the [facility] as well for the back pain and has not been seen in a while. Patient reports she takes multiple doses of extra strength Tylenol although has not been helping and was found to have elevated liver functions in the ER. When asking about any CVA tenderness or pain with burning or frequency or dysuria patient denies reports her pain is more in the lower back. Patient denies any change in bowel habits and reports she only has a bowel movement at least once a week. Patient reports this is not abnormal for her. Patient reports in the past she has had some spinal injections although doesn't recall when and has not been in some time. Patient was admitted for elevated LFTs and given acetylcysteine and showing a downward trend and labs. Will continue gentle IV hydration. Patient did have MRI back in February 2022 showing facet arthropathy of the lower lumbar spine as well as mild degenerative disc disease of L5-S1 with desiccated and bulging disks along the posterior annular fissure and mild neural for minimal narrowing on both sides with no significant spinal cord stenosis. Urinalysis on admission was negative, hCG was negative, hepatitis panel is negative and ALT was 177 and AST is 155. Repeats shown ALT of 144 and AST of 84 Tylenol level is within normal limits. Will consult GI and appreciate input and recommendations. Patient is maintained on Toradol currently reporting her pain is somewhat imp roved. Review Of Systems: Constitutional: No fever, no chills, no night sweats. No weight change. No weakness, fatigue or lethargy. No daytime sleepiness. EENT: No headache. No blurred vision or double vision, no loss of vision. No loss of Hearing, no ringing in the ears, no dizziness. No nasal drainage or congestion. No epistaxis. No sore throat. Lungs: No shortness of breath, cough, no sputum production. No wheezing. Cardiovascular: No chest pain, no lower extremity edema. No palpitations. No paroxysmal nocturnal dyspnea. No orthopnea. No lightheadedness or dizziness. No syncopal episodes. Abdominal: No abdominal pain. No nausea, vomiting. No diarrhea. No constipation. No bloody or tarry stools.. No loss of appetite. Genitourinary: No dysuria, increased frequency, urgency. No urinary retention. Musculoskeletal: Reports lower back pain and myalgias. No muscle weakness, no gait dysfunction, no frequent falls. Reports lower back pain. No neck pain. Integumentary: No wounds, no lesions. No rash or pruritus. No unusual bruising. No change in hair or nails. Neurologic: No aphasia. No facial droop. No change in mentation. No head injury. No headache. No paralysis. No paresthesia. Psychiatric: No depression. No anxiety. No mood swings. Endocrine: No abnormal blood sugars. No weight change. No excessive sweating or thirst. No cold intolerance. PHYSICAL EXAMINATION: GENERAL: The patient is alert and oriented x4, thin built, Well developed HEENT: Pupils are round and equally reacting to light. EOMI. no scleral icterus. No conjunctival pallor. Normocephalic, atraumatic. No pharyngeal erythema. No thyromegaly. Multiple dental caries and fractured teeth noted throughout CARDIOVASCULAR: S1 and S2 muffled PULMONARY: Clear to auscultation bilaterally with no wheezing or rhonchi noted. ABDOMEN: soft. Nontender on exam. non-distended, normoactive bowel sounds. No palpable organomegaly. MUSCULOSKELETAL: No joint swelling or deformity. Lower back tenderness L4S1 EXTREMITIES: No cyanosis, clubbing, or pedal edema. NEUROLOGICAL: Gross neurological examination did not reveal any focal deficits. SKIN: No rashes. Assessment: Lower back pain, chronic with history of fibromyalgia History of asthma, not an exacerbation History of degenerative joint disease History of scoliosis History of osteoarthriti Elevated LFTs, possibly secondary to Tylenol toxicity Moderate protein calorie malnutrition with a BMI of 16.5 GI prophylaxis DVT prophylaxis Full code Plan: Patient is continued on Toradol for pain management and does follow with [facility] for her chronic fibromyalgia and pain. Patient reports she is not taking anything narcotic mcgraw and does not have a pain management contract and has been taking excess amounts of Tylenol and found to have elevated liver functions. Patient was given a dose of acetylcysteine and liver functions are trending down and hepatitis panel was negative. Will consult GI and appreciate input and recommendations Encouraged increased activity as tolerated Patient may need pain management referral outpatient Continue with antinausea medication as needed Possible discharge planning in the next few hours. Will await GI consultation The impression and plan of care has been dictated by Gabriella Santos, nurse practitioner as directed. Dr. Luke MD I have performed a history and examination and MDM of this patient, discussed the same with the dictator, and agree with the dictator's assessment and plan as written ,documented as a scribe. Based on total visit time, I have performed more than 50% of the visit. Any additional findings or plans will be noted. Past Medical History Past Medical History: Asthma, Fibromyalgia, Osteoarthritis (OA) Additional Past Medical History / Comment(s): SCOLIOSIS, FREQUENT EAR INFECTIONS, DDD, HERNIATED DISCS, MIGRANES History of Any Multi-Drug Resistant Organisms: None Reported Past Surgical History: Adenoidectomy, Ear Surgery, Tonsillectomy Additional Past Surgical History / Comment(s): BMT, D&C Past Anesthesia/Blood Transfusion Reactions: No Reported Reaction Past Psychological History: No Psychological Hx Reported Smoking Status: Never smoker Past Alcohol Use History: None Reported Past Drug Use History: None Reported - Past Family History Mother Family Medical History: Cancer, Diabetes Mellitus, Hypertension Additional Family Medical History / Comment(s): BREAST, COLON, POSSIBLE UTERINE CANCER Medications and Allergies Home Medications Medication Instructions Recorded Confirmed Type Butalb/Acetaminophen/Caffeine 1 tab PO Q4H PRN 09/23/23 09/23/23 History [Fioricet 50-325-40] Allergies Allergy/AdvReac Type Severity Reaction Status Date / Time No Known Allergies Allergy Verified 09/23/23 07:44 Physical Exam Vitals: Vital Signs Temp Pulse Resp BP Pulse Ox 09/23/23 07:58 98.2 F 76 18 106/81 98 09/23/23 06:46 67 18 100/70 99 09/23/23 03:18 88 12 109/73 99 09/23/23 00:33 77 18 119/89 99 09/22/23 21:51 82 100 09/22/23 21:50 121/90 09/22/23 19:44 98.9 F 84 18 109/77 100 Intake and Output 09/22/23 09/23/23 09/23/23 22:59 06:59 14:59 Other: Weight 50.802 kg Results CBC & Chem 7: 09/23/23 05:55 09/23/23 05:55 Labs: Abnormal Lab Results - Last 24 Hours (Table) 09/22/23 09/22/23 09/22/23 Range/Units 20:02 20:02 20:02 WBC 3.1 L (3.8-10.6) k/uL RBC (3.80-5.40) m/uL Plt Count 124 L (150-450) k/uL AST 155 H (14-36) U/L ALT 177 H (4-34) U/L Ur Specific Wilson 1.050 H (1.001-1.035) Urine Protein 1+ H (Negative) Urine Blood Trace H (Negative) Urine Bilirubin 1+ H (Negative) Ur Squamous Epith Cells 5 H (0-4) /hpf Urine Mucus Occasional H (None) /hpf 09/23/23 09/23/23 Range/Units 05:55 05:55 WBC 3.4 L (3.8-10.6) k/uL RBC 3.77 L (3.80-5.40) m/uL Plt Count 104 L (150-450) k/uL AST 84 H (14-36) U/L ALT 144 H (4-34) U/L Ur Specific Wilson (1.001-1.035) Urine Protein (Negative) Urine Blood (Negative) Urine Bilirubin (Negative) Ur Squamous Epith Cells (0-4) /hpf Urine Mucus (None) /hpf Thrombosis Risk Factor Assmnt - DVT/VTE Prophylaxis DVT/VTE Prophylaxis: Low risk, early ambulation encouraged Assessment and Plan Time with Patient: Greater than 30
[2023-09-23] MEDS: SODIUM CHLORIDE 0.9% 1,000 ML IV SCH ×2 (11:57→21:55)
[2023-09-23] MEDS ORDERED: HYDROcodone/APAP 5-325MG 1 EACH TAB PO PRN (13:54)
--- NOTE | 2023-09-23 14:07 | XR ---
EXAMINATION TYPE: XR lumbar spine 2 or 3V DATE OF EXAM: 09/23/2023 CLINICAL HISTORY: Lower back pain TECHNIQUE: Three views of the lumbar spine are submitted. COMPARISON: CT abdomen pelvis 12/20/2022, lumbosacral radiograph 01/11/2020 FINDINGS: There are 5 lumbar type vertebral bodies identified. No acute fracture. Similar mild retrolisthesis o f L5 on S1. No pars defects. Mild disc space narrowing at L5-S1. Vertebral body heights are within no rmal limits.. The overlying soft tissue appears unremarkable. IMPRESSION: 1. No acute fracture. 2. Minimal degenerative disc disease at L5-S1. 3. Similar mild retrolisthesis of L5 on S1.
--- NOTE | 2023-09-23 16:43 | P.CONS ---
History of Present Illness - Reason for Consult Consult date: 09/23/23 Elevated LFT, Tylenol toxicity Requesting physician: Gabriella Santos - Chief Complaint Flank pain - History of Present Illness This a 28-year-old female with chronic back pain who presented to the emergency department yesterday with complaints of bilateral lower back pain. She has a history of fibromyalgia, asthma osteoarthritis and reports infrequent back pain. Patient states that she takes 6 either extra strength Tylenol or regular strength Tylenol daily for pain. On admission she was noted to have elevated AST and ALTs, she had a acetaminophen level drawn which was elevated at 32.2. Patient was given acetylcysteine oral 1 dose. She had repeat labs with a n ormal acetaminophen level less than 10, LFTs are trending down. Patient does state that she was told in the beginning of this year that she had some abnormal liver tests and states that they were elevated. She does not believe she had any further workup at that time. She denies any history of heavy alcohol use, no IV drug use. Hepatitis panel was nonreactive. She is denying any abdominal pain, nausea or vomiting. Review of Systems REVIEW OF SYSTEMS: CARDIOPULMONARY: No chest pain or shortness of breath. Gastrointestinal: No abdominal pain. No nausea or vomiting. No hematemesis, coffee-ground emesis. No rectal bleeding, or melena. GENITOURINARY: No dysuria or hematuria. MUSCULOSKELETAL: Reports normal range of motion. Joint pain. Back pain. SKIN: No rashes. No jaundice. ENDOCRINE: No chills, fevers. No excessive weight gain or loss. No polydipsia or polyuria. PSYCHIATRIC: Unremarkable. NEUROLOGY: No change in mental status. Denies dizziness, headache. ENT: Vision unremarkable. CONSTITUTIONAL: No recent weight loss. No fever, chills, night sweats. Past Medical History Past Medical History: Asthma, Fibromyalgia, Osteoarthritis (OA) Additional Past Medical History / Comment(s): SCOLIOSIS, FREQUENT EAR INFECTIONS, DDD, HERNIATED DISCS, MIGRANES History of Any Multi-Drug Resistant Organisms: None Reported Past Surgical History: Adenoidectomy, Ear Surgery, Tonsillectomy Additional Past Surgical History / Comment(s): BMT, D&C Past Anesthesia/Blood Transfusion Reactions: No Reported Reaction Past Psychological History: No Psychological Hx Reported Smoking Status: Never smoker Past Alcohol Use History: None Reported Past Drug Use History: None Reported - Past Family History Mother Family Medical History: Cancer, Diabetes Mellitus, Hypertension Additional Family Medical History / Comment(s): BREAST, COLON, POSSIBLE UTERINE CANCER Medications and Allergies Home Medications Medication Instructions Recorded Confirmed Type Butalb/Acetaminophen/Caffeine 1 tab PO Q4H PRN 09/23/23 09/23/23 History [Fioricet 50-625-40] Allergies Allergy/AdvReac Type Severity Reaction Status Date / Time No Known Allergies Allergy Verified 09/23/23 07:44 Physical Exam Vitals: Vital Signs Temp Pulse Resp BP Pulse Ox 09/23/23 07:58 98.2 F 76 18 106/81 98 09/23/23 06:46 67 18 100/70 99 09/23/23 03:18 88 12 109/73 99 09/23/23 00:33 77 18 119/89 99 09/22/23 21:51 82 100 09/22/23 21:50 121/90 09/22/23 19:44 98.9 F 84 18 109/77 100 General appearance: The patient is alert, oriented, appears in no acute distress. HET: Head is normocephalic and atraumatic. Poor dentition. Conjunctiva pink. Sclera anicteric. Neck: Supple without lymphadenopathy. Trachea midline. Heart: Regular. Lungs: Equal expansion, normal respiratory effort. Abdomen: Soft, nontender, nondistended with bowel sounds. No guarding or rigidity. Skin: No rashes. No jaundice. Extremities: Normal skin color and turgor. No pedal edema. Neurological: No focal deficits. Alert and oriented x3. Results CBC & Chem 7: 09/23/23 05:55 09/23/23 05:55 Labs: Abnormal Lab Results - Last 24 Hours (Table) 09/22/23 09/22/23 09/22/23 Range/Units 20:02 20:02 20:02 WBC 3.1 L (3.8-10.6) k/uL RBC (3.80-5.40) m/uL Plt Count 124 L (150-450) k/uL AST 155 H (14-36) U/L ALT 177 H (4-34) U/L Ur Specific Eckley 1.050 H (1.001-1.035) Urine Protein 1+ H (Negative) Urine Blood Trace H (Negative) Urine Bilirubin 1+ H (Negative) Ur Squamous Epith Cells 5 H (0-4) /hpf Urine Mucus Occasional H (None) /hpf 09/23/23 09/23/23 Range/Units 05:55 05:55 WBC 3.4 L (3.8-10.6) k/uL RBC 3.77 L (3.80-5.40) m/uL Plt Count 104 L (150-450) k/uL AST 84 H (14-36) U/L ALT 144 H (4-34) U/L Ur Specific Eckley (1.001-1.035) Urine Protein (Negative) Urine Blood (Negative) Urine Bilirubin (Negative) Ur Squamous Epith Cells (0-4) /hpf Urine Mucus (None) /hpf Comments: Lumbar x-ray: No acute fracture. Minimal degenerative disc disease at L5-S1. Similar mild retrolisthesis of l5 on s1 Assessment and Plan (1) Elevated LFTs Narrative/Plan: 8-year-old female presented for flank pain with concerns for possible kidney infection. She had lab work done that showed elevated AST and ALTs with admitting AST 155 ALT 177, patient had reported using acetaminophen daily that she takes extra strength or regular strength Tylenol 6 times a day. She is noted to have acetaminophen level of 32.2 which is elevated on admission. She was given Mucomyst with a repeat acetaminophen level less than 10. Today's labs also were trending down with AST 84 ALT 144. Hepatitis panel nonreactive no previous history of alcohol use or IV drug use. Unclear etiology of elevated LFTs, acetaminophen level elevated however patient did not report taking toxic doses of acetaminophen. Nonetheless patient treated with acetylcysteine with repeat normal acetaminophen level. Current Visit: Yes Status: Acute Code(s): R79.89 - OTHER SPECIFIED ABNORMAL FINDINGS OF BLOOD CHEMISTRY SNOMED Code(s): 966885282 (2) Back pain Current Visit: Yes Status: Acute Code(s): M54.9 - DORSALGIA, UNSPECIFIED SNOMED Code(s): 005609895 Plan: 1. Continue symptomatic and supportive care 2. Diet as tolerated 3. Repeat LFTs 4. Acetylcysteine treatment per recommendations from poison control 5. No further workup indicated at this time area and if LFTs continue to trend down likely discharge tomorrow Thank you for this consultation, we will continue to follow Dr. Yennifer Gonzalez I agree with the dictator's note, documented as a scribe by Vkia Reeder.
[2023-09-24] MEDS: FAMOTIDINE 20 MG TAB PO SCH ×2 (08:29→21:45)
[2023-09-24 09:30] LABS: ALT 99 U/L (8-44); AST 36 U/L (13-35); Albumin 3.6 d/dL (3.8-4.9); Albumin/Globulin Ratio 1.71 Ratio (1.60-3.17); Alkaline Phosphatase 57 U/L (41-126); Blood Urea Nitrogen 7.2 mg/dL (9.0-27.0); Calcium 8.4 mg/dL (8.7-10.3); Carbon Dioxide 26.5 mmol/L (21.6-31.8); Chloride 105 mmol/L (96-109); Globulin 2.1 d/dL (1.6-3.3); Glucose 96 mg/dL (70-110); Potassium 3.6 mmol/L (3.5-5.5); Sodium 139 mmol/L (135-145); Total Bilirubin 0.2 mg/dL (0.3-1.2); Total Protein 5.7 d/dL (6.2-8.2)
[2023-09-24] MEDS ORDERED: BUTALB/APAP/CAFF 50-325-40MG TAB PO PRN (10:27)
--- NOTE | 2023-09-24 12:40 | P.PN ---
Subjective Progress Note Date: 09/24/23 Principal diagnosis: Elevated LFTs, tylenol toxicity This a 28-year-old female with chronic back pain who presented to the emergency department yesterday with complaints of bilateral lower back pain. She has a history of fibromyalgia, asthma osteoarthritis and reports infrequent back pain. Patient states that she takes 6 either extra strength Tylenol or regular strength Tylenol daily for pain. On admission she was noted to have elevated AST and ALTs, she had a acetaminophen level drawn which was elevated at 32.2. Patient was given acetylcysteine oral 1 dose. She had repeat labs with a normal acetaminophen level less than 10, LFTs are trending down. Patient does state that she was told in the beginning of this year that she had some abnormal liver tests and states that they were elevated. She does not believe she had any further workup at that time. She denies any history of heavy alcohol use, no IV drug use. Hepatitis panel was nonreactive. She is denying any abdominal pain, nausea or vomiting. 09/24/23 Patient is seen and examined as a follow up. She denies any abdominal pain, nausea or vomiting. States she has a headache. She was given Toradol which improved the headache. Repeat LFTs trending down. Total bilirubin 0.2 AST 36 AST 99. Objective - Vital Signs Vital signs: Vital Signs Temp 98.0 F 09/24/23 07:00 Pulse 70 09/24/23 07:00 Resp 16 09/24/23 07:00 BP 99/66 09/24/23 07:00 Pulse Ox 99 09/24/23 07:00 FiO2 Intake & Output 09/23/23 09/24/23 09/24/23 18:59 06:59 18:59 Other: Voiding Method Toilet # Voids 2 - Exam General appearance: The patient is alert, oriented, appears in no acute distress. HET: Head is normocephalic and atraumatic. Conjunctiva pink. Sclera anicteric. Poor dentition Neck: Supple without lymphadenopathy. Abdomen: Soft, nontender, nondistended with bowel sounds. No guarding or rigidity. Extremities: Normal skin color and turgor. No pedal edema Skin: No rashes, no jaundice Neurological: No focal deficits. Alert and oriented. - Labs CBC & Chem 7: 09/23/23 05:55 10/31/23 05:41 Assessment and Plan (1) Elevated LFTs Narrative/Plan: 8-year-old female presented for flank pain with concerns for possible kidney infection. She had lab work done that showed elevated AST and ALTs with admitting AST 155 ALT 177, patient had reported using acetaminophen daily that she takes extra strength or regular strength Tylenol 6 times a day. She is noted to have acetaminophen level of 32.2 which is elevated on admission. She was given Mucomyst with a repeat acetaminophen level less than 10. Today's labs also were trending down with AST 84 ALT 144. Hepatitis panel nonreactive no previous history of alcohol use or IV drug use. Unclear etiology of elevated LFTs, acetaminophen level elevated however patient did not report taking toxic doses of acetaminophen. Nonetheless patient treated with acetylcysteine with repeat normal acetaminophen level. LFTs continued to trend down. Was again discussed with patient to avoid acetaminophen at this time. Monitor intake of acetaminophen and use as directed. Current Visit: Yes Status: Acute Code(s): R79.89 - OTHER SPECIFIED ABNORMAL FINDINGS OF BLOOD CHEMISTRY SNOMED Code(s): 373477053 (2) Back pain Current Visit: Yes Status: Acute Code(s): M54.9 - DORSALGIA, UNSPECIFIED SNOMED Code(s): 975336406 Plan: 1. Continue symptomatic and supportive care 2. Diet as tolerated 3. Acetylcysteine treatment per recommendations from poison control 4. Avoid acetaminophen at this time. Discussed with patient importance of taking dose as prescribe 5. Repeat AST/ALT tomorrow and if continue to trend down patient may be cleared for discharge with follow-up in 1-2 weeks Thank you for this consultation, we will continue to follow Dr. Yennifer Gonzalez I agree with the dictator's note, documented as a scribe by Vika Reeder.
[2023-09-24] MEDS: SODIUM CHLORIDE 0.9% 1,000 ML IV SCH (14:29)
[2023-09-24] MEDS ORDERED: KETOROLAC 15 MG/ML 1 ML VIAL IVP PRN (15:03)
--- NOTE | 2023-09-24 15:04 | P.PN ---
Subjective Progress Note Date: 09/24/23 This is a pleasant 28-year-old female who presented to the emergency department with bilateral flank pain. Patient follows with Dr. Banks in the outpatient setting with a past medical history of asthma, fibromyalgia, osteoarthritis, scoliosis with degenerative disc disease and history of migra rosa. Patient reports she follows at the [facility] as well for the back pain and has not been seen in a while. Patient reports she takes multiple doses of extra strength Tylenol although has not been helping and was found to have elevated liver functions in the ER. When asking about any CVA tenderness or pain with burning or frequency or dysuria patient denies reports h er pain is more in the lower back. Patient denies any change in bowel habits and reports she only has a bowel movement at least once a week. Patient reports this is not abnormal for her. Patient reports in the past she has had some spinal injections although doesn't recall when and has not been in some time. Patient was admitted for elevated LFTs and given acetylcysteine and showing a downward trend and labs. Will continue gentle IV hydration. Patient did have MRI back in February 2022 showing facet arthropathy of the lower lumbar spine as well as mild degenerative disc disease of L5-S1 with desiccated and bulging disks along the posterior annular fissure and mild neural for minimal narrowing on both sides with no significant spinal cord stenosis. Urinalysis on admission was negative, hCG was negative, hepatitis panel is negative and ALT was 177 and AST is 155. Repeats shown ALT of 144 and AST of 84 Tylenol level is within normal limits. Will consult GI and appreciate input and recommendations. Patient is maintained on Toradol currently reporting her pain is somewhat improved. 09/24/2023 Patient is seen and evaluated in follow-up today reports her back pain is improving and liver functions are trending down. Patient is reporting headache and patient chronically has migraines. Will resume home medication and monitor. ALT today is 99 and AST is 36. Other labs reviewed and within normal limits. Patient is status post acetylcysteine and Tylenol level yesterday was less than 10. Patient is afebrile denies chest pain or shortness of breath. Patient reports has been up and walking to the bathroom and denies any pain or burning or dysuria. Will monitor overnight and follow-up on repeat labs with possible discharge planning in 24 hours. Review of systems: Constitutional: No reports of fatigue, fever, or chills, reports headache Cardiovascular: No reports of chest pain or palpitations Respiratory: No reports of shortness of breath or cough GI: No reports of nausea, vomiting, or diarrhea : No reports of dysuria or retention Neurovascular: No reports of weakness or numbness All medications have been reviewed PHYSICAL EXAMINATION: GENERAL: The patient is alert and oriented x4, thin built, Well developed HEENT: Pupils are round and equally reacting to light. EOMI. no scleral icterus. No conjunctival pallor. Normocephalic, atraumatic. No pharyngeal erythema. No thyromegaly. Multiple dental caries and fractured teeth noted throughout CARDIOVASCULAR: S1 and S2 muffled PULMONARY: Clear to auscultation bilaterally with no wheezing or rhonchi noted. ABDOMEN: soft. Nontender on exam. non-distended, normoactive bowel sounds. No palpable organomegaly. MUSCULOSKELETAL: No joint swelling or deformity. Lower back tenderness L4S1 EXTREMITIES: No cyanosis, clubbing, or pedal edema. NEUROLOGICAL: Gross neurological examination did not reveal any focal deficits. SKIN: No rashes. Assessment: Lower back pain, chronic with history of fibromyalgia History of asthma, not an exacerbation History of degenerative joint disease History of scoliosis History of osteoarthritis History of migraines Elevated LFTs, possibly secondary to Tylenol toxicity, trending down Moderate protein calorie malnutrition with a BMI of 16.5 GI prophylaxis DVT prophylaxis Full code Plan: Patient is continued on Toradol for pain management and does follow with [facility] for her chronic fibromyalgia and pain. Patient reporting she has a migraine headache which is chronic and will resume her home medications Patient was given a dose of acetylcysteine and liver functions are trending down and hepatitis panel was negative. GI following recommend monitoring overnight and will follow-up with repeat labs Encouraged increased activity as tolerated Patient may need pain management referral outpatient Possible discharge in 24 hours The impression and plan of care has been dictated by Gabriella Santos nurse practitioner as directed. Dr. Luke MD I have performed a history and examination and MDM of this patient, discussed the same with the dictator, and agree with the dictator's assessment and plan as written ,documented as a scribe. Based on total visit time, I have performed more than 50% of the visit. Any additional findings or plans will be noted. Objective - Vital Signs Vital signs: Vital Signs Temp 98.0 F 09/24/23 14:12 Pulse 83 09/24/23 14:12 Resp 16 09/24/23 14:12 BP 119/86 09/24/23 14:12 Pulse Ox 97 09/24/23 14:12 FiO2 Intake & Output 09/23/23 09/24/23 09/24/23 18:59 06:59 18:59 Other: Voiding Method Toilet Toilet # Voids 2 1 - Labs CBC & Chem 7: 09/23/23 05:55 09/24/23 05:41 Labs: Abnormal Lab Results - Last 24 Hours (Table) 09/24/23 Range/Units 05:41 BUN 7.2 L (9.0-27.0) mg/dL Calcium 8.4 L (8.7-10.3) mg/dL Total Bilirubin 0.2 L (0.3-1.2) mg/dL AST 36 H (13-35) U/L ALT 99 H (8-44) U/L Total Protein 5.7 L (6.2-8.2) d/dL Albumin 3.6 L (3.8-4.9) d/dL
[2023-09-25] MEDS: SODIUM CHLORIDE 0.9% 1,000 ML IV SCH (03:58)
[2023-09-25 09:20] LABS: ALT 74 U/L (8-44); AST 19 U/L (13-35); Albumin/Globulin Ratio 1.74 Ratio (1.60-3.17); Alkaline Phosphatase 61 U/L (41-126); BUN/Creat Ratio 12.86 Ratio (12.00-20.00); Calcium 8.9 mg/dL (8.7-10.3); Carbon Dioxide 26.1 mmol/L (21.6-31.8); Chloride 106 mmol/L (96-109); Globulin 2.3 d/dL (1.6-3.3); Glucose 97 mg/dL (70-110); Potassium 3.8 mmol/L (3.5-5.5); Sodium 141 mmol/L (135-145); Total Bilirubin 0.2 mg/dL (0.3-1.2); Total Protein 6.3 d/dL (6.2-8.2)
[2023-09-25 09:43] VITALS: BP 101/65; PULSE 49; RESP 17; TEMP 97.9
[2023-09-25] MEDS: FAMOTIDINE 20 MG TAB PO SCH (10:31)
--- NOTE | 2023-09-25 11:26 | P.PN ---
Subjective Progress Note Date: 09/25/23 Principal diagnosis: Elevated LFTs, tylenol toxicity This a 28-year-old female with chronic back pain who presented to the emergency department yesterday with complaints of bilateral lower back pain. She has a history of fibromyalgia, asthma osteoarthritis and reports infrequent back pain. Patient states that she takes 6 either extra strength Tylenol or regular strength Tylenol daily for pain. On admission she was noted to have elevated AST and ALTs, she had a acetaminophen level drawn which was elevated at 32.2. Patient was given acetylcysteine oral 1 dose. She had repeat labs with a normal acetaminophen level less than 10, LFTs are trending down. Patient does state that she was told in the beginning of this year that she had some abnormal liver tests and states that they were elevated. She does not believe she had any further workup at that time. She denies any history of heavy alcohol use, no IV drug use. Hepatitis panel was nonreactive. She is denying any abdominal pain, nausea or vomiting. 09/24/23 Patient is seen and examined as a follow up. She denies any abdominal pain, nausea or vomiting. States she has a headache. She was given Toradol which improved the headache. Repeat LFTs trending down. Total bilirubin 0.2 AST 36 AST 99. 09/25/2023 Patient seen and examined today as a follow-up. She denies any abdominal pain nausea or vomiting. She's been tolerating a regular diet. LFTs continue to trend down. Total bilirubin 0.2 AST 19 ALT 74 alkaline phosphatase 61 Objective - Vital Signs Vital signs: Vital Signs Temp 97.9 F 09/25/23 07:00 Pulse 49 L 09/25/23 07:00 Resp 17 09/25/23 07:00 BP 101/65 09/25/23 07:00 Pulse Ox 99 09/25/23 07:00 FiO2 Intake & Output 09/24/23 09/25/23 09/25/23 18:59 06:59 18:59 Other: Voiding Method Toilet Toilet # Voids 1 2 - Exam General appearance: The patient is alert, oriented, appears in no acute distress. HET: Head is normocephalic and atraumatic. Conjunctiva pink. Sclera anicteric. Poor dentition Neck: Supple without lymphadenopathy. Abdomen: Soft, nontender, nondistended with bowel sounds. No guarding or rigidity. Extremities: Normal skin color and turgor. No pedal edema Skin: No rashes, no jaundice Neurological: No focal deficits. Alert and oriented. - Labs CBC & Chem 7: 09/23/23 05:55 09/25/23 05:41 Labs: Abnormal Lab Results - Last 24 Hours (Table) 09/25/23 Range/Units 05:41 Total Bilirubin 0.2 L (0.3-1.2) mg/dL ALT 74 H (8-44) U/L Assessment and Plan (1) Elevated LFTs Narrative/Plan: 8-year-old female presented for flank pain with concerns for possible kidney inf ection. She had lab work done that showed elevated AST and ALTs with admitting AST 155 ALT 177, patient had reported using acetaminophen daily that she takes extra strength or regular strength Tylenol 6 times a day. She is noted to have acetaminophen level of 32.2 which is elevated on admission. She was given Mucomyst with a repeat acetaminophen level less than 10. Today's labs also were trending down with AST 84 ALT 144. Hepatitis panel nonreactive no previous history of alcohol use or IV drug use. Unclear etiology of elevated LFTs, acetaminophen level elevated however patient did not report taking toxic doses of acetaminophen. Nonetheless patient treated with acetylcysteine with repeat normal acetaminophen level. LFTs continued to trend down. Was again discussed with patient to avoid acetaminophen at this time. Monitor intake of acetaminophen and use as directed. Current Visit: Yes Status: Acute Code(s): R79.89 - OTHER SPECIFIED ABNORMAL FINDINGS OF BLOOD CHEMISTRY SNOMED Code(s): 715636649 (2) Back pain Current Visit: Yes Status: Acute Code(s): M54.9 - DORSALGIA, UNSPECIFIED SNOMED Code(s): 504465532 Plan: 1. Continue symptomatic and supportive care 2. Diet as tolerated 3. Acetylcysteine treatment per recommendations from poison control 4. Avoid acetaminophen at this time. Discussed with patient importance of taking dose as prescribe 5. Patient to follow-up with gastroenterology in 1-2 weeks. Thank you for this consultation, patient is cleared from gastroenterology for discharge. We will sign off at this time. Dr. Yennifer Gonzalez I agree with the dictator's note, documented as a scribe by Vika Reeder.
== END 2023-09-25 11:48 | disposition home or self-care (01) ==
LOC: EC 19:08 → INTOOBSV 22:28 → 6NMEDSUR 22:28 → OBSVTOIN 22:28 → 6NMEDSUR 09-23 05:25
PROVIDERS: ADMIT Internal Medicine; ATTEND Internal Medicine
DX: K71.8 Toxic liver disease with other disorders of liver (principal); M79.7 Fibromyalgia; T39.1X5A Adverse effect of 4-Aminophenol derivatives, initial encounter; E44.0 Moderate protein-calorie malnutrition; J45.909 Unspecified asthma, uncomplicated; M51.36 Other intervertebral disc degeneration, lumbar region; G89.29 Other chronic pain; R74.01 Elevation of levels of liver transaminase levels; M41.80 Other forms of scoliosis, site unspecified; M41.9 Scoliosis, unspecified; M51.37 Other intervertebral disc degeneration, lumbosacral region; M19.90 Unspecified osteoarthritis, unspecified site; G43.909 Migraine, unspecified, not intractable, without status migrainosus; R79.89 Other specified abnormal findings of blood chemistry; M54.50 Low back pain, unspecified; Z68.1 Body mass index [BMI] 19.9 or less, adult; X58.XXXA Exposure to other specified factors, initial encounter; Z82.49 Family history of ischemic heart disease and other diseases of the circulatory system
CPT/HCPCS: 36415; 72100; 80053; 80074; 80143; 81001; 81025; 85025; 85027; 96361; 96374; 96375; 96376; 99285

== ENCOUNTER → 2023-11-04 | Outpatient (CLI) | payer OTHER ==
--- NOTE | 2023-11-04 11:33 | US ---
EXAMINATION TYPE: US abdomen complete DATE OF EXAM: 11/04/2023 COMPARISON: Correlation CT 12/20/2022 CLINICAL INDICATION: Female, 28 years old with history of R74.8 ABNORMAL LEVELS OF OTHER SERUM ENZYME S; Patient Denies any signs or symptoms at this time TECHNIQUE: Multiple sonographic images of the abdomen are obtained. FINDINGS: EXAM MEASUREMENTS: Liver Length: 16.5 cm Gallbladder Wall: 0.1 cm CBD: 0.3 cm Spleen: 11.0 cm Right Kidney: 10.2 x 3.4 x 4.6 cm Left Kidney: 10.1 x 5.2 x 3.9 cm [employer]SELING CENTER MANAGER NOTES: Pancreas: wnl Liver: wnl Gallbladder: wnl Evidence for sonographic Bejarano's sign: no CBD: 3 mm nodular area, Artifact vs polyp vs stone within. Bile duct is normal caliber. Spleen: Normal length of 11.0 cm by thickened up to 6.3 cm. Right Kidney: wnl Left Kidney: limited vis due to rib shadowing. No hydronephrosis seen. Upper IVC: wnl Abd Aorta: wnl IMPRESSION: 1. A 3 mm nodular area within the bile duct could represent artifact, a polyp, or a small bile duct s tone. Correlate with alkaline phosphatase and bilirubin levels as well as a 3 month follow-up ultraso und to reassess. 2. No gallstones. 3. Spleen appears prominently thickened/enlarged measuring up to 6.3 cm thick. Correlate for possible etiologies including portal venous hypertension. We do note a large caliber to the portal venous sys tem on the patient's 12/20/2022 CT in retrospect.
== END | disposition home or self-care (01) ==
LOC: RADUSWWP 07:08
PROVIDERS: ATTEND Internal Medicine Gastroenterology
DX: K83.8 Other specified diseases of biliary tract (principal); R16.1 Splenomegaly, not elsewhere classified; R74.8 Abnormal levels of other serum enzymes
CPT/HCPCS: 76700

== ENCOUNTER 2023-11-15 19:41 | Emergency (ER) | payer OTHER ==
[2023-11-15 20:21] VITALS: BP 106/73; PULSE 102; RESP 18; TEMP 98.2
--- NOTE | 2023-11-15 20:33 | ED ---
Back Pain HPI - General Chief Complaint: Back Pain/Injury Stated Complaint: Back Pain Time Seen by Provider: 11/15/23 20:32 Source: patient Limitations: no limitations - History of Present Illness Initial Comments: 28-year-old female with a past medical history significant for chronic back pain presenting to the ED with a chief complaint of back pain. Patient states pain is consistent with history of back pain. Denies saddle anesthesia or incontinence. Denies urinary symptoms. Patient states that she would just like to get a shot of pain meds and leave. Denies . Denies chest pain or shortness of breath. No other complaints. - Related Data Home Medications Medication Instructions Recorded Confirmed Butalb/Acetaminophen/Caffeine 1 tab PO Q4H PRN 09/23/23 09/23/23 [Fioricet 50-325-40] Previous Rx's Medication Instructions Recorded HYDROcodone/APAP 5-325MG [[place] 1 tab PO Q6HR PRN #6 tab 09/24/23 5-325] Ondansetron Odt [Zofran Odt] 4 mg PO Q8HR PRN #20 tab 09/24/23 Allergies Allergy/AdvReac Type Severity Reaction Status Date / Time No Known Allergies Allergy Verified 09/23/23 07:44 Review of Systems ROS Statement: Those systems with pertinent positive or pertinent negative responses have been documented in the HPI. ROS Other: All systems not noted in ROS Statement are negative. Past Medical History Past Medical History: Asthma, Fibromyalgia, Osteoarthritis (OA) Additional Past Medical History / Comment(s): SCOLIOSIS, FREQUENT EAR INFECTIONS, DDD, HERNIATED DISCS, MIGRANES History of Any Multi-Drug Resistant Organisms: None Reported Past Surgical History: Adenoidectomy, Ear Surgery, Tonsillectomy Additional Past Surgical History / Comment(s): BMT, D&C Past Anesthesia/Blood Transfusion Reactions: No Reported Reaction Past Psychological History: No Psychological Hx Reported Smoking Status: Never smoker Past Alcohol Use History: None Reported Past Drug Use History: None Reported - Past Family History Mother Family Medical History: Cancer, Diabetes Mellitus, Hypertension Additional Family Medical History / Comment(s): BREAST, COLON, POSSIBLE UTERINE CANCER General Exam Limitations: no limitations General appearance: alert, in no apparent distress Eye exam: Present: normal appearance Respiratory exam: Present: normal lung sounds bilaterally Cardiovascular Exam: Present: regular rate, normal rhythm Extremities exam: Present: normal inspection, other (Strength and sensation equal and intact in bilateral lower extremities. Ambulates without difficulty.) Neurological exam: Present: alert, oriented X3 Skin exam: Present: warm, dry Course Vital Signs 11/15/23 20:15 Temperature 98.2 F Pulse Rate 102 H Respiratory 18 Rate Blood Pressure 106/73 O2 Sat by Pulse 99 Oximetry Medical Decision Making - Medical Decision Making Was pt. sent in by a medical professional or institution (, PA, AUDIT INTERN, urgent care, hospital, or care home...) When possible be specific @ -No Did you speak to anyone other than the patient for history (EMS, parent, family, police, friend...)? What history was obtained from this source @ -No Did you review nursing and triage notes (agree or disagree)? Why? @ -I reviewed and agree with nursing and triage notes Were old charts reviewed (outside hosp., previous admission, EMS record, old EKG, old radiological studies, urgent care reports/EKG's, care home records)? Report findings @ -No old charts were reviewed Differential Diagnosis (chest pain, altered mental status, abdominal pain women, abdominal pain men, vaginal bleeding, weakness, fever, dyspnea, syncope, headache, dizziness, GI bleed, back pain, seizure, CVA, palpatations, mental health, musculoskeletal)? @ -Differential Back Pain: Strain, zoster, cauda equina syndrome, epidural abscess, vertebral osteomyelitis, discitis, fracture, subluxation, disc herniation, DJD, spinal stenosis, dissection, AAA, pancreatitis, peptic ulcer disease, pyelonephritis, kidney stone, this is not meant to be an all-inclusive list. EKG interpreted by me (3pts min.). @ -None X-rays interpreted by me (1pt min.). @ -None done CT interpreted by me (1pt min.). @ -None done U/S interpreted by me (1pt. min.). @ -None done What testing was considered but not performed or refused? (CT, X-rays, U/S, labs)? Why? @ -Imaging was considered however patient reports pain is consistent with her history of chronic back pain. Additionally, patient denies any new injuries, saddle anesthesia, incontinence, or urinary symptoms. What meds were considered but not given or refused? Why? @ -None Did you discuss the management of the patient with other professionals (professionals i.e. , PA, AUDIT INTERN, lab, RT, psych nurse, protective services social worker, senior marketing data analyst, teacher, investment officer, watch caser)? Give summary @ -No Was smoking cessation discussed for >3mins.? @ -No Was critical care preformed (if so, how long)? @ -No Were there social determinants of health that impacted care today? How? (Homelessness, low income, unemployed, alcoholism, drug addiction, transportatio n, low edu. Level, literacy, decrease access to med. care, fpc, rehab)? @ -No Was there de-escalation of care discussed even if they declined (Discuss DNR or withdrawal of care, Hospice)? DNR status @ -No What co-morbidities impacted this encounter? (DM, HTN, Smoking, COPD, CAD, Cancer, CVA, ARF, Chemo, Hep., AIDS, mental health diagnosis, sleep apnea, morbid obesity)? @ -None Was patient admitted / discharged? Hospital course, mention meds given and route, prescriptions, significant lab abnormalities, going to OR and other pertinent info. @ -Discharge 28-year-old female with a past medical history significant for chronic back pain presenting to the ED with a complaint of back pain and requesting a shot of Toradol. Patient provided Toradol. Exam unremarkable with full strength and sensation of bilateral lower extremities. Discharged home in stable condition. Discussed return precautions with patient who verbalizes agreement. Undiagnosed new problem with uncertain prognosis? @ -No Drug Therapy requiring intensive monitoring for toxicity (Heparin, Nitro, Insulin, Cardizem)? @ -No Were any procedures done? @ -No Diagnosis/symptom? @ -Back pain Acute, or Chronic, or Acute on Chronic? @ -Acute on chronic Uncomplicated (without systemic symptoms) or Complicated (systemic symptoms)? @ -Uncomplicated Side effects of treatment? @ -No Exacerbation, Progression, or Severe Exacerbation? @ -No Poses a threat to life or bodily function? How? (Chest pain, [place], [place], pneumonia, PE, COPD, DKA, ARF, appy, cholecystitis, CVA, Diverticulitis, Homicidal, Suicidal, threat to staff... and all critical care pts) @ -No Disposition Clinical Impression: Back pain Disposition: HOME SELF-CARE Instructions (If sedation given, give patient instructions): Acute Low Back Pain (ED) Additional Instructions: Please return to the Emergency Department if symptoms worsen or any other concerns. Please follow-up with your primary care provider. Is patient prescribed a controlled substance at d/c from ED?: No Referrals: Michaela Banks [Primary Care Provider] - 1-2 days Time of Disposition: 20:58
[2023-11-15] MEDS ORDERED: KETOROLAC 15 MG/ML 1 ML VIAL IM STA (20:41)
== END 2023-11-15 21:08 | disposition home or self-care (01) ==
LOC: EC 19:41
DX: M54.9 Dorsalgia, unspecified (principal); J45.909 Unspecified asthma, uncomplicated
CPT/HCPCS: 99283; 96372; J1885

== ENCOUNTER 2023-11-16 13:41 | Emergency (ER) | payer OTHER ==
[2023-11-16] MEDS ORDERED: ACET/COD 300 MG/30 MG STARTER PACK 6 TAB BTL PO STA (14:01)
--- NOTE | 2023-11-16 14:02 | ED ---
Back Pain HPI - General Chief Complaint: Back Pain/Injury Stated Complaint: back pain Time Seen by Provider: 11/16/23 13:49 Source: patient, RN notes reviewed Limitations: no limitations - History of Present Illness Initial Comments: 28-year-old female presents emergency Department chief complaint of back pain. Patient states his been ongoing issue. Patient states she has had prior epidural injections and sees neurology for back pain states she has stopped issues earlier this year but had no miscarriage. Patient states that she has appointment made with neurology put weight gain. Patient states she lifted some heavy things at work and states that aggravate her back. She was seen yesterday received Toradol states it did help with the pain came back. She denies any bowel, bladder incontinence or retention of stable anesthesias denies any lower external weakness or paresthesias states all located to her mid to low back she states she has known bulging disks, degenerative disc disease and states that she has fibromyalgia. - Related Data Home Medications Medication Instructions Recorded Confirmed Butalb/Acetaminophen/Caffeine 1 tab PO Q4H PRN 09/23/23 09/23/23 [Fioricet 50-325-40] Previous Rx's Medication Instructions Recorded HYDROcodone/APAP 5-325MG [[place] 1 tab PO Q6HR PRN #6 tab 09/24/23 5-325] Ondansetron Odt [Zofran Odt] 4 mg PO Q8HR PRN #20 tab 09/24/23 Cyclobenzaprine [Flexeril] 10 mg PO TID PRN #15 tab 11/16/23 Ondansetron Odt [Zofran Odt] 4 mg PO Q8HR PRN #10 tab 11/16/23 predniSONE 50 mg PO DAILY #5 tab 11/16/23 Allergies Allergy/AdvReac Type Severity Reaction Status Date / Time No Known Allergies Allergy Verified 11/16/23 13:46 Review of Systems ROS Statement: Those systems with pertinent positive or pertinent negative responses have been documented in the HPI. ROS Other: All systems not noted in ROS Statement are negative. Past Medical History Past Medical History: Asthma, Fibromyalgia, Osteoarthritis (OA) Additional Past Medical History / Comment(s): SCOLIOSIS, FREQUENT EAR INFECTIONS, DDD, HERNIATED DISCS, MIGRANES History of Any Multi-Drug Resistant Organisms: None Reported Past Surgical History: Adenoidectomy, Ear Surgery, Tonsillectomy Additional Past Surgical History / Comment(s): BMT, D&C Past Anesthesia/Blood Transfusion Reactions: No Reported Reaction Past Psychological History: No Psychological Hx Reported Smoking Status: Never smoker Past Alcohol Use History: None Reported Past Drug Use History: None Reported - Past Family History Mother Family Medical History: Cancer, Diabetes Mellitus, Hypertension Additional Family Medical History / Comment(s): BREAST, COLON, POSSIBLE UTERINE CANCER General Exam Limitations: no limitations General appearance: alert, in no apparent distress Head exam: Present: atraumatic, normocephalic, normal inspection Eye exam: Present: normal appearance, PERRL, EOMI. Absent: scleral icterus, conjunctival injection, periorbital swelling Respiratory exam: Present: normal lung sounds bilaterally. Absent: respiratory distress, wheezes, rales, rhonchi, stridor Cardiovascular Exam: Present: regular rate, normal rhythm, normal heart sounds. Absent: systolic murmur, diastolic murmur, rubs, gallop, clicks GI/Abdominal exam: Present: soft, normal bowel sounds. Absent: distended, tenderness, guarding, rebound, rigid Extremities exam: Present: normal inspection, full ROM, normal capillary refill. Absent: tenderness, pedal edema, joint swelling, calf tenderness Back exam: Present: full ROM, tenderness, muscle spasm, paraspinal tenderness. Absent: vertebral tenderness Course Vital Signs 11/16/23 13:43 Temperature 98.4 F Pulse Rate 84 Respiratory 18 Rate Blood Pressure 123/84 O2 Sat by Pulse 98 Oximetry Medical Decision Making - Medical Decision Making Was pt. sent in by a medical professional or institution (, PA, WORKERS COMPENSATION EXAMINER, urgent care, hospital, or fdc...) When possible be specific @ -No Did you speak to anyone other than the patient for history (EMS, parent, family, police, friend...)? What history was obtained from this source @ -No Did you review nursing and triage notes (agree or disagree)? Why? @ -I reviewed and agree with nursing and triage notes Were old charts reviewed (outside hosp., previous admission, EMS record, old EKG, old radiological studies, urgent care reports/EKG's, fdc records)? Report findings @ -No old charts were reviewed Differential Diagnosis (chest pain, altered mental status, abdominal pain women, abdominal pain men, vaginal bleeding, weakness, fever, dyspnea, syncope, headache, dizziness, GI bleed, back pain, seizure, CVA, palpatations, mental health, musculoskeletal)? @ -nDifferential Back Pain: Strain, zoster, cauda equina syndrome, epidural abscess, vertebral osteomyelitis, discitis, fracture, subluxation, disc herniation, DJD, spinal stenosis, dissection, AAA, pancreatitis, peptic ulcer disease, pyelonephritis, kidney stone, this is not meant to be an all-inclusive list.able EKG interpreted by me (3pts min.). @ -None X-rays interpreted by me (1pt min.). @ -None done CT interpreted by me (1pt min.). @ -None done U/S interpreted by me (1pt. min.). @ -None done What testing was considered but not performed or refused? (CT, X-rays, U/S, labs)? Why? @ -Considered imaging though patient states she's had multiple images and she's had no acute changes. What meds were considered but not given or refused? Why? @ -None Did you discuss the management of the patient with other professionals (professionals i.e. , PA, WORKERS COMPENSATION EXAMINER, lab, RT, psych nurse, group social worker, professor of music, teacher, geological technical officer, returned case inspector)? Give summary @ -No Was smoking cessation discussed for >3mins.? @ -No Was critical care preformed (if so, how long)? @ -No Were there social determinants of health that impacted care today? How? (Homelessness, low income, unemployed, alcoholism, drug addiction, transportation, low edu. Level, literacy, decrease access to med. care, [place] [facility], rehab)? @ -No Was there de-escalation of care discussed even if they declined (Discuss DNR or withdrawal of care, Hospice)? DNR status @ -No What co-morbidities impacted this encounter? (DM, HTN, Smoking, COPD, CAD, Cancer, CVA, ARF, Chemo, Hep., AIDS, mental health diagnosis, sleep apnea, morbid obesity)? @ -Chronic pain, fibromyalgia Was patient admitted / discharged? Hospital course, mention meds given and route, prescriptions, significant lab abnormalities, going to OR and other pertinent info. @ -Discharge patient we treated for acute exacerbation of her chronic back pain. She has no red flag symptoms we discharged in stable condition. Undiagnosed new problem with uncertain prognosis? @ -No Drug Therapy requiring intensive monitoring for toxicity (Heparin, Nitro, Insulin, Cardizem)? @ -No Were any procedures done? @ -No Diagnosis/symptom? @ -Acute exacerbation of back pain Acute, or Chronic, or Acute on Chronic? @ -Acute on chronic Uncomplicated (without systemic symptoms) or Complicated (systemic symptoms)? @ -Uncomplicated Side effects of treatment? @ -No Exacerbation, Progression, or Severe Exacerbation? @ -No Poses a threat to life or bodily function? How? (Chest pain, [place], IA, pneumonia, PE, COPD, DKA, ARF, appy, cholecystitis, CVA, Diverticulitis, Homicidal, Suicidal, threat to staff... and all critical care pts) @ -No Disposition Clinical Impression: Acute exacerbation of chronic low back pain, Thoracic back pain Disposition: HOME SELF-CARE Condition: Stable Instructions (If sedation given, give patient instructions): Acute Low Back Pain (ED) Additional Instructions: Please return to the Emergency Department if symptoms worsen or any other concerns. Prescriptions: Cyclobenzaprine [Flexeril] 10 mg PO TID PRN #15 tab PRN Reason: Muscle Spasm predniSONE 50 mg PO DAILY #5 tab Ondansetron Odt [Zofran Odt] 4 mg PO Q8HR PRN #10 tab PRN Reason: Nausea Is patient prescribed a controlled substance at d/c from ED?: No Referrals: Michaela Banks [Primary Care Provider] - 1-2 days Time of Disposition: 14:01
[2023-11-16] MEDS ORDERED: HYDROmorphone 1 MG/ML 1 ML SYRINGE IM STA (14:23)
[2023-11-16 15:55] VITALS: BP 115/77; PULSE 67; RESP 16; TEMP 98.1
== END 2023-11-16 15:44 | disposition home or self-care (01) ==
LOC: EC 13:41
DX: G89.29 Other chronic pain (principal); M54.50 Low back pain, unspecified; M54.6 Pain in thoracic spine; J45.909 Unspecified asthma, uncomplicated; M19.90 Unspecified osteoarthritis, unspecified site; Z79.1 Long term (current) use of non-steroidal anti-inflammatories (NSAID)
CPT/HCPCS: 99283; 96372; J1170

== ENCOUNTER → 2023-12-04 | Outpatient (CLI) | payer OTHER ==
--- NOTE | 2023-12-08 18:54 | MR ---
EXAMINATION TYPE: MR abdomen wo/w con DATE OF EXAM: 12/04/2023 9:54 PM CLINICAL INDICATION:Female, 28 years old with history of R74.8; PHH, Elevated liver enzymes. COMPARISON: 11/04/2023 ultrasound. TECHNIQUE: Multiplanar multi-sequence imaging was performed without contrast. Post contrast imaging was performed. Post IV contrast subtraction images were also submitted for review. IV Contrast: 5 cc Gadavist FINDINGS: LOWER CHEST: No gross irregularity. ABDOMEN Liver: No evidence for hepatic steatosis or cirrhosis. Gallbladder and Bile ducts: No evidence for ductal dilation, or biliary stricture or evidence of chol edocholithiasis. The gallbladder is nondistended. No evidence for cholelithiasis. Pancreas: No ductal dilation. No evidence for solid mass. Spleen: Normal for size. Adrenal glands: Unremarkable. Kidneys: No evidence for obstructive uropathy. No suspicious renal masses. Stomach and Bowel: No evidence for bowel wall thickening or evidence for obstruction.. Peritoneum: No evidence of pneumoperitoneum or free fluid. Vasculature: No aortic aneurysm. Musculoskeletal: The osseous structures appear intact. Lymph Nodes: No gross evidence for lymphadenopathy. Abdominal wall: Unremarkable. IMPRESSION: The common bile duct and gallbladder are relatively nondistended. No correlate for ultrasound finding 11/04/2023. No intra-abdominal mass or acute process. Consider follow-up ultrasound in 3-6 months.
== END | disposition home or self-care (01) ==
LOC: RADMRIMAIN 21:30
PROVIDERS: ATTEND Internal Medicine Gastroenterology
DX: R74.8 Abnormal levels of other serum enzymes (principal)
CPT/HCPCS: 74183; A9585

== ENCOUNTER → 2023-12-05 | Outpatient (CLI) | payer OTHER ==
[2023-12-06 02:12] LABS: HCT 42.6 % (37.2-46.3); HGB 14.1 g/dL (12.0-15.0); MCH 30.3 pg (27.0-32.0); MCHC 33.1 g/dL (32.0-37.0); MCV 91.6 FL (80.0-97.0); Mean Platelet Volume 11.8 FL (9.5-12.2); NRBC Per 100 WBC 0 X 10*3/uL (0.00-0.01); Platelet Count 228 X 10*3/uL (140-440); RBC 4.65 X 10*6/uL (4.10-5.20); RDW 11.7 % (11.5-14.5); WBC 6.58 X 10*3/uL (4.50-10.00)
[2023-12-06 02:28] LABS: ALT 18 U/L (8-44); AST 13 U/L (13-35); Albumin 4.7 g/dL (3.8-4.9); Albumin/Globulin Ratio 1.74 Ratio (1.60-3.17); Alkaline Phosphatase 56 U/L (41-126); BUN/Creat Ratio 14.14 Ratio (12.00-20.00); Blood Urea Nitrogen 9.9 mg/dL (9.0-27.0); Calcium 9.9 mg/dL (8.7-10.3); Carbon Dioxide 24.9 mmol/L (21.6-31.8); Chloride 104 mmol/L (96-109); Globulin 2.7 g/dL (1.6-3.3); Glucose 99 mg/dL (70-110); Potassium 4.1 mmol/L (3.5-5.5); Sodium 139 mmol/L (135-145); Total Bilirubin 0.5 mg/dL (0.3-1.2); Total Protein 7.4 g/dL (6.2-8.2)
== END | disposition home or self-care (01) ==
LOC: LABWHC1 16:15
PROVIDERS: ATTEND Internal Medicine Gastroenterology
DX: D69.6 Thrombocytopenia, unspecified (principal); R74.8 Abnormal levels of other serum enzymes
CPT/HCPCS: 36415; 80053; 85027

== ENCOUNTER → 2025-01-21 | Outpatient (CLI) | payer OTHER ==
[2025-01-22 02:22] LABS: HCT 33.5 % (37.2-46.3); HGB 10.6 g/dL (12.0-15.0); MCH 29.3 pg (27.0-32.0); MCHC 31.6 g/dL (32.0-37.0); MCV 92.5 FL (80.0-97.0); Mean Platelet Volume 11.5 FL (9.5-12.2); NRBC Per 100 WBC 0 X 10*3/uL (0.00-0.01); Platelet Count 179 X 10*3/uL (140-440); RBC 3.62 X 10*6/uL (4.10-5.20); RDW 13.4 % (11.5-14.5); WBC 10.35 X 10*3/uL (4.50-10.00)
== END | disposition home or self-care (01) ==
LOC: LABWHC1 14:09
PROVIDERS: ATTEND Obstetrics & Gynecology
DX: Z36.9 Encounter for antenatal screening, unspecified (principal)
CPT/HCPCS: 36415; 82950; 85027; 86850; 86900; 86901

== ENCOUNTER 2025-04-07 16:37 | Inpatient (IN) | payer OTHER ==
[2025-04-07] MEDS ORDERED: OXYTOCIN 10 UNIT/ML 1 ML VIAL IM PRN (17:18)
[2025-04-07] MEDS ORDERED: LIDOCAINE 0.5% (PF) 5 MG/ML (50 ML SDV) SQ PRN (17:18)
[2025-04-07] MEDS ORDERED: TRANEXAMIC 1,000 MG/100ML-NACL 1,000 MG in EMPTY BAG 1 BAG IV PRN (17:18)
[2025-04-07] MEDS ORDERED: METHYLERGONOVINE 0.2 MG/ML 1 ML AMP IM PRN (17:18)
[2025-04-07] MEDS ORDERED: CARBOPROST TROMETHAMINE 250 MCG/ML 1 ML AMP IM PRN (17:18)
[2025-04-07] MEDS ORDERED: miSOPROStoL 200 MCG TAB RECTAL PRN (17:18)
[2025-04-07] MEDS ORDERED: miSOPROStoL 200 MCG TAB PO PRN (17:18)
[2025-04-07] MEDS ORDERED: TERBUTALINE 1 MG/ML VIAL SQ PRN (17:18)
[2025-04-07] MEDS ORDERED: OXYTOCIN 30 UNITS/500 ML NS 30 UNIT in SALINE 1 500ML.BAG IV SCH (17:30)
[2025-04-07 17:31] LABS: Basophils # (A) 0.07 10*3/uL (0.00-0.10); Basophils % (A) 0.5 %; Eosinophils # (A) 0.03 10*3/uL (0.04-0.35); Eosinophils % (A) 0.2 %; HCT 30.5 % (37.2-46.3); HGB 9.3 g/dL (12.0-15.0); Lymphocytes # (A) 1.11 10*3/uL (0.90-5.00); Lymphocytes % (A) 8.5 %; MCH 24.3 pg (27.0-32.0); MCHC 30.5 g/dL (32.0-37.0); MCV 79.6 fL (80.0-97.0); Mean Platelet Volume 11.6 fL (9.5-12.2); Monocytes % (A) 6.1 %; Neutrophils # (A) 10.51 10*3/uL (1.80-7.70); Neutrophils % (A) 80.1 %; Platelet Count 178 10*3/uL (140-440); RBC 3.83 10*6/uL (4.10-5.20); WBC 13.12 10*3/uL (4.50-10.00)
[2025-04-07 17:56] VITALS: RESP 16
[2025-04-07] MEDS: LACTATED RINGERS 1,000 ML IV SCH (18:21)
--- NOTE | 2025-04-07 19:47 | P.HPOB ---
History of Present Illness H&P Date: 04/07/25 Chief Complaint: contractions Ms. Ball is a 29 year old at 39 weeks and 0 days with EDC of 04/14/2025 by LMP consistent with 12 week US who presents in active labor. The has been complicated by Rh negative status for which she received Rhogam at 28 weeks, transient IUGR and oligohydramnios (both now resolved), and velamentous cord insertion. The fetus has undergone weekly surveillance which has been reassuring. at 36 weeks, the fetus was estimated at 40%ile for growth measuring 5#15 ounces at that time. Obstetric history: 5 FTVD, second to last complicated by IUGR and oligoydramnios, largest infant 7#11 ounces. 2 SABs, 1 with D&C work-up: blood type O negative, antibody screen negative, rubella immune, VDRL non-reactive, HBsAg negative, HIV negative, HCV Ab non-reactive, gonorrhea negative, chlamydia negative, 1 hour GTT wnl, GBS negative Past Medical History Past Medical History: Asthma, Fibromyalgia, Osteoarthritis (OA) Additional Past Medical History / Comment(s): SCOLIOSIS, FREQUENT EAR INFECTIONS, DDD, HERNIATED DISCS, MIGRANES History of Any Multi-Drug Resistant Organisms: None Reported Past Surgical History: Adenoidectomy, Ear Surgery, Tonsillectomy Additional Past Surgical History / Comment(s): BMT, D&C Past Anesthesia/Blood Transfusion Reactions: No Reported Reaction Past Psychological History: No Psychological Hx Reported Smoking Status: Never smoker Past Alcohol Use History: None Reported Past Drug Use History: None Reported - Past Family History Mother Family Medical History: Cancer, Diabetes Mellitus, Hypertension Additional Family Medical History / Comment(s): BREAST, COLON, POSSIBLE UTERINE CANCER Medications and Allergies Home Medications Medication Instructions Recorded Confirmed Type Vit No.179/Iron/Folic 1 tab PO DAILY 04/07/25 04/07/25 History [ Tablet] Allergies Allergy/AdvReac Type Severity Reaction Status Date / Time No Known Allergies Allergy Verified 04/07/25 17:14 Exam Vital Signs Temp Pulse Resp BP Pulse Ox 04/07/25 17:42 97.5 F L 103 H 16 127/80 99 04/07/25 17:13 97.5 F L 103 H 16 127/80 99 Intake and Output 04/07/25 04/07/2525 06:59 14:59 22:59 Other: Weight 72.575 kg Focused physical exam is performed. This is a healthy-appearing in no apparent distress. Breathing is non-labored. Abdomen is gravid and non-tender. Cervical exam is 7/100/0. AROM is undertaken with clear fluid noted. Extremities non-tender and non-edematous. heart tones are Category I and tocometer is graphing contractions every 2-4 minutes. Results Result Diagrams: 04/07/25 17:24 Abnormal Lab Results - Last 24 Hours (Table) 04/07/25 Range/Units 17:24 WBC 13.12 H (4.50-10.00) 10*3/uL RBC 3.83 L (4.10-5.20) 10*6/uL Hgb 9.3 L (12.0-15.0) g/dL Hct 30.5 L (37.2-46.3) % MCV 79.6 L (80.0-97.0) fL MCH 24.3 L (27.0-32.0) pg MCHC 30.5 L (32.0-37.0) g/dL Immature Gran # 0.60 H (0.00-0.04) 10*3/uL Neutrophils # 10.51 H (1.80-7.70) 10*3/uL Eosinophils # 0.03 L (0.04-0.35) 10*3/uL Assessment and Plan Assessment: 29 year old at 39 weeks gestation in spontaneous active labor Plan: Admit, clear liquid diet, expectant management, continuous EFM and tocometer, anticipate vaginal delivery.
--- NOTE | 2025-04-07 20:27 | P.MSEPDOC ---
Presenting Problems - Arrival Data Date of Arrival on Unit: 04/07/25 Time of Arrival on Unit: 17:00 Mode of Transport: Ambulatory - Complaint OB-Reason for Admission/Chief Complaint: Possible Onset of Labor Medical History - Information : 8 Para: 5 Term: 5 : 0 Abortions: Spontaneous or Elective: 2 Number of Living Children: 5 - Gestational Age Gestational Age by CHANDAN (wks/days): 39 Weeks and 0 Days Review of Systems - Review of Systems Constitutional: No problems Breast: No problems ENT: No problems Cardiovascular: No problems Respiratory: No problems Gastrointestinal: No problems Genitourinary: No problems Musculoskeletal: No problems Neurological: No problems Skin: No problems Vital Signs - Temperature Temperature: 97.5 F Temperature Source: Temporal Artery Scan - Pulse Right Brachial Pulse Rate: 103 Pulse Assessment Method: Automatic Cuff - Respirations Respiratory Rate: 16 Oxygen Delivery Method: Room Air O2 Sat by Pulse Oximetry: 99 - Blood Pressure Right Arm Blood Pressure: 127/80 Blood Pressure Mean: 95 Blood Pressure Source: Automatic Cuff Medical Screen Scoring - Cervical Exam Dilation (cm): 5 Effacement (%): 80 Station: -2 Membranes: Intact - Assessment - Baby A Baseline FHR: 150 Heart Rate - NICHD Category: Category I (Normal) NST: Reactive Physician Notification - Physician Notified Physician Notified Date: 04/07/25 Physician Notified Time: 17:00 Physician: Eduarda Massey Order Received: Yes - Notification Comment Comment: Admit patient to unit may have epidural Maternal Triage Index - Stat/Priority 1 Stat Priority 1: No - Urgent/Priority 2 Urgent Priority 2: No - Prompt/Priority 3 Prompt Priority 3: No - Non-Urgent/Priority 4 Non-Urgent Priority 4: Yes Criteria Met for Priority 4: 39 0/7 labor Disposition - Disposition OB Disposition: Admit Discharge Date: 04/07/25 Discharge Time: 17:00 I agree with the RN Medical Screening Exam: Yes Case reviewed; plan agreed upon as documented in EMR&OBIX.: Yes Diagnosis: ENCOUNTER FOR FULL-TERM UNCOMPLICATED DELIVERY
--- NOTE | 2025-04-07 20:56 | P.PROBDLV ---
Vaginal Delivery Note - . Vaginal Delivery Note: DATE OF SERVICE: 04/07/2025 PROCEDURE: Normal Vaginal Delivery ATTENDING: Dr. Eduarda Massey MD ESTIMATED BLOOD LOSS: 50 mL FINDINGS: VFI, Apgars 8/9. Weight 7 pounds and 11 ounces (3505 grams) PROCEDURE: Ms. Ball is a 29 year old at 39 weeks presenting to labor and delivery in active labor. The has been complicated by resolved IUGR and oligohydramnios as well as Rh negative status. For further details, please review the admitting H&P. AROM was undertaken at 1935 revealing clear amniotic fluid. The patient was completely dilated at 2023. She pushed effectively with Category I heart tones. A viable female infant was delivered at 2023. The infant was placed on the maternal abdomen and bulb suctioned. The was noted to be spontaneously crying. Cord was clamped and cut after a 60-second delay. The was handed off to the pediatric team. Placenta was delivered whole with gentle cord traction at 2047. Oxytocin was started to facilitate uterine tone. Uterine fundus was found to be firm and below the umbilicus upon fundal massage. Thorough examination of the cervix, vagina, periurethral area, and perineum revealed no lacerations. The patient is stable and allowed to begin the bonding process.
[2025-04-07] MEDS ORDERED: diphenhydrAMINE 50 MG CAP PO PRN (20:57)
[2025-04-07] MEDS ORDERED: HYDROCORTISONE 2.5% RECTAL CREAM 30 GM TUBE RECTAL PRN (20:57)
[2025-04-07] MEDS ORDERED: ZOLPIDEM 5 MG TAB PO PRN (20:57)
[2025-04-07] MEDS ORDERED: LANOLIN CREAM 1 GM TUBE TOPICAL PRN (20:57)
[2025-04-07] MEDS ORDERED: SIMETHICONE 80 MG CHEWABLE PO PRN (20:57)
[2025-04-07] MEDS ORDERED: diphenhydrAMINE 25 MG CAP PO PRN (20:57)
[2025-04-07] MEDS ORDERED: BENZOCAINE/MENTHOL SPRAY 1 GM/SPRAY AEROSOL TOPICAL PRN (20:57)
[2025-04-07] MEDS ORDERED: diphenhydrAMINE 50 MG/ML 1 ML VIAL IVP PRN ×2 (20:57)
[2025-04-07] MEDS: ACETAMINOPHEN TAB 500 MG TAB PO SCH (21:18)
[2025-04-08] MEDS: IBUPROFEN 800 MG TAB PO SCH (02:08)
[2025-04-08] MEDS: Rhogam IMMUNE GLOBULIN 1,500 UNIT/1 ML IM ONE (05:57)
[2025-04-08 07:18] LABS: Basophils # (A) 0.03 10*3/uL (0.00-0.10); Basophils % (A) 0.2 %; Eosinophils # (A) 0.06 10*3/uL (0.04-0.35); Eosinophils % (A) 0.4 %; HCT 28.7 % (37.2-46.3); HGB 8.6 g/dL (12.0-15.0); Immature Platelet Fraction 10.6 % (1.1-6.1); Lymphocytes # (A) 1.54 10*3/uL (0.90-5.00); Lymphocytes % (A) 9.7 %; MCH 23.9 pg (27.0-32.0); MCV 79.7 fL (80.0-97.0); Mean Platelet Volume 11.8 fL (9.5-12.2); Monocytes # (A) 1.24 10*3/uL (0.20-1.00); Monocytes % (A) 7.8 %; Neutrophils # (A) 12.49 10*3/uL (1.80-7.70); Neutrophils % (A) 79.1 %; Platelet Count 163 10*3/uL (140-440)
[2025-04-08] MEDS: SENNOSIDES-DOCUSATE SODIUM 1 EACH TAB PO SCH (09:20)
--- NOTE | 2025-04-08 12:58 | P.DS ---
Providers Date of admission: 04/07/25 17:55 Expected date of discharge: 04/08/25 Attending physician: Eduarda Massey MD Primary care physician: Stated None Hospital Course: Ms. Ball is a 29 year old now PPD#1 s/p uncomplicated . Patient doing well this morning, no complaints. Lochia is minimal, no fevers or chills, no lightheadedness with ambulation, no pain/swelling in the legs. Patient is formula feeding her infant without difficulty. Reviewed concerns/reasons to call the office including heavy bleeding, fevers/chills, foul smelling vaginal discharge, etc. Patient to return to clinic in 6 weeks for appointment. All questions answered. Patient Condition at Discharge: Good Plan - Discharge Summary New Discharge Prescriptions: No Action Vit No.179/Iron/Folic [ Tablet] 1 tab PO DAILY Discharge Medication List Vit No.179/Iron/Folic [ Tablet] 1 tab PO DAILY 04/07/25 [H istory] Follow up Appointment(s)/Referral(s): Eduarda Massey MD [STAFF PHYSICIAN] - 05/24/25 1:45 pm Discharge Disposition: HOME SELF-CARE
[2025-04-08 20:08] VITALS: BP 124/83; PULSE 92; TEMP 97.8
== END 2025-04-08 21:39 | disposition home or self-care (01) | DRG 560 ==
LOC: FBPOP 16:37 → 4FBP 17:55
PROVIDERS: ADMIT Obstetrics & Gynecology; ATTEND Obstetrics & Gynecology
PROC: 10E0XZZ Delivery of Products of Conception, External Approach (ICD-10-PCS; principal; 2025-04-07)
PROC: 10907ZC Drainage of Amniotic Fluid, Therapeutic from Products of Conception, Via Natural or Artificial Opening (ICD-10-PCS; principal; 2025-04-07)
DX: O36.0930 Maternal care for other rhesus isoimmunization, third trimester, not applicable or unspecified (principal); O43.123 Velamentous insertion of umbilical cord, third trimester; Z3A.39 39 weeks gestation of pregnancy; Z37.0 Single live birth; Z67.91 Unspecified blood type, Rh negative
CPT/HCPCS: 59025; 85025; 85461; 86850; 86900; 86901; 99213

== ENCOUNTER 2025-06-06 13:50 | Emergency (ER) | payer OTHER ==
--- NOTE | 2025-06-06 14:49 | ED ---
General Adult HPI - General Chief complaint: Headache Stated complaint: Headache Time Seen by Provider: 06/06/25 14:35 Source: patient, RN notes reviewed Mode of arrival: ambulatory Limitations: no limitations - History of Present Illness Initial comments: Patient is a 29-year-old female present to the emergency department with concerns for headache. Symptoms have been occurring for the past week or 2. Patient has associated photophobia and nausea. Patient has vomited. Patient did have a couple episodes of diarrhea today. No abdominal pain. Patient does have history of chronic headaches. Patient does see a neurologist for this. Patient has had previous imaging. Headache feels similar to previous headaches. Right-sided. - Related Data Home Medications Medication Instructions Recorded Confirmed Vit No.179/Iron/Folic 1 tab PO DAILY 04/07/25 04/07/25 [ Tablet] Allergies Allergy/AdvReac Type Severity Reaction Status Date / Time No Known Allergies Allergy Verified 06/06/25 13:56 Review of Systems ROS Statement: Those systems with pertinent positive or pertinent negative responses have been documented in the HPI. ROS Other: All systems not noted in ROS Statement are negative. Constitutional: Denies: fever Eyes: Reports: as per HPI Respiratory: Denies: dyspnea Gastrointestinal: Reports: as per HPI, nausea, vomiting Past Medical History Past Medical History: Asthma, Fibromyalgia, Osteoarthritis (OA) Additional Past Medical History / Comment(s): SCOLIOSIS, FREQUENT EAR INFECTIONS, DDD, HERNIATED DISCS, MIGRANES History of Any Multi-Drug Resistant Organisms: None Reported Past Surgical History: Adenoidectomy, Ear Surgery, Tonsillectomy Additional Past Surgical History / Comment(s): BMT, D&C Past Anesthesia/Blood Transfusion Reactions: No Reported Reaction Past Psychological History: No Psychological Hx Reported Smoking Status: Never smoker Past Alcohol Use History: None Reported Past Drug Use History: None Reported - Past Family History Mother Family Medical History: Cancer, Diabetes Mellitus, Hypertension Additional Family Medical History / Comment(s): BREAST, COLON, POSSIBLE UTERINE CANCER General Exam Limitations: no limitations General appearance: alert, in no apparent distress Head exam: Present: atraumatic Eye exam: Present: normal appearance, PERRL, EOMI ENT exam: Present: normal oropharynx Neck exam: Present: normal inspection Respiratory exam: Present: normal lung sounds bilaterally Cardiovascular Exam: Present: regular rate, normal rhythm GI/Abdominal exam: Present: soft. Absent: distended, tenderness, guarding, rebound, rigid Extremities exam: Present: normal inspection Neurological exam: Present: alert, oriented X3, CN II-XII intact. Absent: motor sensory deficit Expanded Neurological exam: Present: protecting the airway Speech: Present: fluid speech Cranial nerves: EOM's Intact: Normal Motor strength exam: RUE: 5, LUE: 5, RLE: 5, LLE: 5 Eye Response: (4) open spontaneously Motor Response: (6) obeys commands Verbal Response: (5) oriented Psychiatric exam: Present: normal affect, normal mood Skin exam: Present: normal color Course Vital Signs 06/06/25 13:55 Temperature 97.9 F Pulse Rate 109 H Respiratory 18 Rate Blood Pressure 120/74 O2 Sat by Pulse 99 Oximetry Medical Decision Making - Medical Decision Making Was pt. sent in by a medical professional or institution (RATNA Traylor, COUNTY TREASURER, urgent care, hospital, or care home...) When possible be specific @ -No Did you speak to anyone other than the patient for history (EMS, parent, family, police, friend...)? What history was obtained from this source @ -No Did you review nursing and triage notes (agree or disagree)? Why? @ -I reviewed and agree with nursing and triage notes Were old charts reviewed (outside hosp., previous admission, EMS record, old EKG, old radiological studies, urgent care reports/EKG's, care home records)? Report findings @ -No old charts were reviewed Differential Diagnosis (chest pain, altered mental status, abdominal pain women, abdominal pain men, vaginal bleeding, weakness, fever, dyspnea, syncope, headache, dizziness, GI bleed, back pain, seizure, CVA, palpatations, mental health, musculoskeletal)? @ -Differential Headache: Migraine, tension, cluster, carbon monoxide, central venous thrombosis, pension karma temporal arteritis, acute closure glaucoma, intercranial hemorrhage, mastoiditis, sinusitis, head injury, this is not meant to be an all-inclusive list. EKG interpreted by me (3pts min.). @ -As above X-rays interpreted by me (1pt min.). @ -None done CT interpreted by me (1pt min.). @ -None done U/S interpreted by me (1pt. min.). @ -None done What testing was considered but not performed or refused? (CT, X-rays, U/S, labs)? Why? @ -Considered imaging however patient has history of similar symptoms with previous imaging What meds were considered but not given or refused? Why? @ -None Did you discuss the management of the patient with other professionals (professionals i.e. , PA, COUNTY TREASURER, lab, RT, psych nurse, hospice social worker, outsole compressor, teacher, fare enforcement officer, clinical case manager)? Give summary @ -No Was smoking cessation discussed for >3mins.? @ -No Was critical care preformed (if so, how long)? @ -No Were there social determinants of health that impacted care today? How? (Homelessness, low income, unemployed, alcoholism, drug addiction, transportation, low edu. Level, literacy, decrease access to med. care, detention, rehab)? @ -No Was there de-escalation of care discussed even if they declined (Discuss DNR or withdrawal of care, Hospice)? DNR status @ -No What co-morbidities impacted this encounter? (DM, HTN, Smoking, COPD, CAD, Cancer, CVA, ARF, Chemo, Hep., AIDS, mental health diagnosis, sleep apnea, morbid obesity)? @ -Chronic migraines/headaches Was patient admitted / discharged? Hospital course, mention meds given and route, prescriptions, significant lab abnormalities, going to OR and other pertinent info. @ -Patient presents with headache similar to her chronic headaches. Evaluation otherwise unremarkable. Patient has had some nausea and provide with nausea medication as well. Patient was comfortable with medication administration and discharge. Patient advised close follow-up with her primary care physician and neurologist Undiagnosed new problem with uncertain prognosis? @ -No Drug Therapy requiring intensive monitoring for toxicity (Heparin, Nitro, Insulin, Cardizem)? @ -No Were any procedures done? @ -No Diagnosis/symptom? @ -Cephalgia Acute, or Chronic, or Acute on Chronic? @ -Acute on chronic Uncomplicated (without systemic symptoms) or Complicated (systemic symptoms)? @ -Complicated with nausea and vomiting Side effects of treatment? @ -No Exacerbation, Progression, or Severe Exacerbation? @ -No Poses a threat to life or bodily function? How? (Chest pain, USA, CT, pneumonia, PE, COPD, DKA, ARF, appy, cholecystitis, CVA, Diverticulitis, Homicidal, Suicidal, threat to staff... and all critical care pts) @ -No Disposition Clinical Impression: Cephalgia Disposition: HOME SELF-CARE Condition: Stable Instructions (If sedation given, give patient instructions): Acute Headache (ED) Additional Instructions: No driving today. Please do follow-up with your primary care physician in the next day or 2 for recheck. Also follow-up with your neurologist. Return for fever, confusion, weakness, worsening or change in symptoms or other concerns. Is patient prescribed a controlled substance at d/c from ED?: No Referrals: Nonstaff,Physician [Primary Care Provider] - 1-2 days Forms: Area PCPs Time of Disposition: 14:49
[2025-06-06] MEDS: KETOROLAC 15 MG/ML 1 ML VIAL IM STA (15:26)
[2025-06-06] MEDS: METOCLOPRAMIDE 5 MG/ML 2 ML VIAL IM STA (15:29)
[2025-06-06] MEDS: MORPHINE SULFATE 4 MG/ML SYRINGE IM STA (15:30)
[2025-06-06 15:42] VITALS: BP 115/81; PULSE 81; RESP 17; TEMP 98.3
== END 2025-06-06 15:42 | disposition home or self-care (01) ==
LOC: EC 13:50
DX: M54.2 Cervicalgia (principal)
CPT/HCPCS: 99283; 96372; J2270; J2765; J1885

== ENCOUNTER 2025-06-07 16:02 | Emergency (ER) | payer OTHER ==
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
[2025-06-07] MEDS: METOCLOPRAMIDE 5 MG/ML 2 ML VIAL IM STA (16:53)
[2025-06-07] MEDS: MORPHINE SULFATE 4 MG/ML SYRINGE IM STA (16:53)
[2025-06-07] MEDS: KETOROLAC 15 MG/ML 1 ML VIAL IM STA (16:54)
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
[2025-06-07 19:11] VITALS: BP 121/76; PULSE 76; RESP 20; TEMP 98
== END 2025-06-07 19:10 | disposition home or self-care (01) ==
LOC: EC 16:02
DX: G43.909 Migraine, unspecified, not intractable, without status migrainosus (principal); V43.62XA Car passenger injured in collision with other type car in traffic accident, initial encounter; Y92.410 Unspecified street and highway as the place of occurrence of the external cause
CPT/HCPCS: 72125; 70450; 99284; 96372; J2270; J2765; J1885